=== PATIENT | female | born 1935 | race Caucasian/White ===

== ENCOUNTER → 2017-04-21 | Outpatient (REF) | payer MEDICARE ==
[~2017-04-21] MED LIST: /CIPR75TA OR; ALDA25TA2 PO; ASPI325T PO; ASPI81TA85 PO; ASPI81TA90 PO; ATIV1TAB10 PO; BISOPROLOL FUMARATE PO; COZA25TA8 PO; ECOT81TA5 PO; ELIQ5TAB PO; IMDU30TA PO; ISOS30TA4 PO; LASI20TA PO; LIPI80TA PO; NITR4TASL SL; PACE200T PO; PLAV1TAB2 PO; PLAV75TA2 PO; PROT1TAB2 PO; RANI150C PO; SIMV40TA2 PO; TYLE325T5 PO; TYLE650T25 PO; VITA200038 PO; VITAMIN D PO; ZANTTAB PO; ZEST1TAB4 PO; tylenol OR
== END ==
LOC: M SMT 17:05
PROVIDERS: ATTEND Urology
DX: D41.4 Neoplasm of uncertain behavior of bladder (principal)

== ENCOUNTER → 2017-07-08 | Outpatient (CLI) | payer MEDICARE ==
[2017-07-08 12:46] LABS: ALBUMIN 3.7 GM/DL (3.2-5.2); ALBUMIN/GLOBULIN RATIO 1.06 (1.00-1.93); ALKALINE PHOSPHATASE 70 U/L (45-117); ALT/SGPT 17 U/L (12-78); ANION GAP 9 MEQ/L (8-16); AST/SGOT 22 U/L (15-37); BILIRUBIN,TOTAL 0.7 MG/DL (0.2-1.0); BLOOD UREA NITROGEN 15 MG/DL (7-18); CARBON DIOXIDE LEVEL 25 MEQ/L (21-32); CHLORIDE LEVEL 107 MEQ/L (98-107); CREATININE FOR GFR 0.69 MG/DL (0.55-1.02); GLOMERULAR FILTRATION RATE > 60.0 (>32); GLUCOSE, FASTING 74 MG/DL (83-110); POTASSIUM SERUM 4.6 MEQ/L (3.5-5.1); SODIUM LEVEL 141 MEQ/L (136-145); TOTAL PROTEIN 7.2 GM/DL (6.4-8.2)
[2017-07-08 12:48] LABS: MEAN CORPUSCULAR HEMOGLOBIN 30.9 pg (27.0-33.0); MEAN CORPUSCULAR HGB CONC 32.3 g/dl (32.0-36.5); MEAN CORPUSCULAR VOLUME 95.8 fl (80.0-96.0); RED CELL DISTRIBUTION WIDTH 12.9 % (11.5-14.5); WHITE BLOOD COUNT 4.9 K/mm3 (4.0-10.0)
== END ==
LOC: M WUC 09:25
PROVIDERS: ATTEND Physician Assistant
DX: I25.10 Atherosclerotic heart disease of native coronary artery without angina pectoris (principal)

== ENCOUNTER → 2017-07-08 | Outpatient (CLI) | payer MEDICARE ==
[2017-07-08 12:33] LABS: MEAN CORPUSCULAR HEMOGLOBIN 30.7 pg (27.0-33.0); MEAN CORPUSCULAR HGB CONC 32.1 g/dl (32.0-36.5); MEAN CORPUSCULAR VOLUME 95.5 fl (80.0-96.0); RED CELL DISTRIBUTION WIDTH 12.9 % (11.5-14.5); WHITE BLOOD COUNT 4.8 K/mm3 (4.0-10.0)
[2017-07-08 13:01] LABS: ANION GAP 10 MEQ/L (8-16); BLOOD UREA NITROGEN 17 MG/DL (7-18); CALCIUM LEVEL 9.1 MG/DL (8.8-10.2); CARBON DIOXIDE LEVEL 27 MEQ/L (21-32); CHLORIDE LEVEL 106 MEQ/L (98-107); CHOLESTEROL LEVEL 247 MG/DL (<200); CREATININE FOR GFR 0.65 MG/DL (0.55-1.02); GLOMERULAR FILTRATION RATE > 60.0 (>32); GLUCOSE, FASTING 75 MG/DL (83-110); POTASSIUM SERUM 4.5 MEQ/L (3.5-5.1); SODIUM LEVEL 143 MEQ/L (136-145); TRIGLYCERIDES LEVEL 105 MG/DL (<150)
== END ==
LOC: M WUC 09:29
PROVIDERS: ATTEND Internal Medicine Cardiovascular Disease
DX: I25.10 Atherosclerotic heart disease of native coronary artery without angina pectoris (principal)

== ENCOUNTER → 2017-10-30 | Outpatient (REF) | payer MEDICARE ==
[2017-10-30 19:10] LABS: HEMATOCRIT 45.6 % (36.0-47.0); HEMOGLOBIN 14.3 g/dl (12.0-16.0); MEAN CORPUSCULAR HEMOGLOBIN 29.1 pg (27.0-33.0); MEAN CORPUSCULAR HGB CONC 31.4 g/dl (32.0-36.5); MEAN CORPUSCULAR VOLUME 92.7 fl (80.0-96.0); PLATELET COUNT, AUTOMATED 229 10^3/uL (150-450); RED BLOOD COUNT 4.92 10^6/uL (4.00-5.40); RED CELL DISTRIBUTION WIDTH 13.9 % (11.5-14.5); WHITE BLOOD COUNT 6.3 10^3/uL (4.0-10.0)
[2017-10-30 20:15] LABS: ALBUMIN 3.7 GM/DL (3.2-5.2); ALBUMIN/GLOBULIN RATIO 1.03 (1.00-1.93); ALKALINE PHOSPHATASE 75 U/L (45-117); ALT/SGPT 17 U/L (12-78); ANION GAP 8 MEQ/L (8-16); AST/SGOT 21 U/L (7-37); BILIRUBIN,TOTAL 0.5 MG/DL (0.2-1.0); BLOOD UREA NITROGEN 16 MG/DL (7-18); CALCIUM LEVEL 9.6 MG/DL (8.8-10.2); CARBON DIOXIDE LEVEL 29 MEQ/L (21-32); CHLORIDE LEVEL 106 MEQ/L (98-107); CHOLESTEROL LEVEL 252 MG/DL (<200); CREATININE FOR GFR 0.76 MG/DL (0.55-1.02); FREE T4 0.94 NG/DL (0.76-1.46); GLOMERULAR FILTRATION RATE > 60.0 (>32); GLUCOSE, FASTING 120 MG/DL (83-110); HDL CHOLESTEROL 78 MG/DL (>40); LDL CHOLESTEROL 139.8 MG/DL (<100); NON-HDL-C 174 MG/DL; POTASSIUM SERUM 4.1 MEQ/L (3.5-5.1); SODIUM LEVEL 143 MEQ/L (136-145); THYROID STIMULATING HORMONE 0.958 uIU/ML (0.358-3.740); TOTAL PROTEIN 7.3 GM/DL (6.4-8.2); TRIGLYCERIDES LEVEL 171 MG/DL (<150)
== END ==
LOC: M SFHCADAM 14:34
DX: F43.23 Adjustment disorder with mixed anxiety and depressed mood (principal); I63.50 Cerebral infarction due to unspecified occlusion or stenosis of unspecified cerebral artery; I10 Essential (primary) hypertension; E78.2 Mixed hyperlipidemia
CPT/HCPCS: 84443

== ENCOUNTER 2017-11-04 09:56 | Inpatient (IN) | payer MEDICARE ==
[2017-11-04 12:22] LABS: BASO % 0.3 % (0.0-1.0); EOS # 0.1 10^3/uL (0.0-0.50); EOS % 1.2 % (0.0-3.0); HEMATOCRIT 44.7 % (36.0-47.0); HEMOGLOBIN 14.5 g/dl (12.0-16.0); IMMATURE GRANULOCYTE % 0.5 % (0-0); LYMPH # 1.1 10^3/uL (1.5-4.5); LYMPH % 16.7 % (24.0-44.0); MEAN CORPUSCULAR HEMOGLOBIN 29.4 pg (27.0-33.0); MEAN CORPUSCULAR HGB CONC 32.4 g/dl (32.0-36.5); MEAN CORPUSCULAR VOLUME 90.7 fl (80.0-96.0); MONO # 0.6 10^3/uL (0.0-0.8); MONO % 9.5 % (0.0-5.0); NEUTROPHILS # 4.7 10^3/uL (1.8-7.7); NEUTROPHILS % 71.8 % (36.0-66.0); PLATELET COUNT, AUTOMATED 220 10^3/uL (150-450); RED BLOOD COUNT 4.93 10^6/uL (4.00-5.40); RED CELL DISTRIBUTION WIDTH 13.7 % (11.5-14.5); WHITE BLOOD COUNT 6.5 10^3/uL (4.0-10.0)
[2017-11-04 13:49] LABS: ANION GAP 5 MEQ/L (8-16); BLOOD UREA NITROGEN 14 MG/DL (7-18); CARBON DIOXIDE LEVEL 29 MEQ/L (21-32); CHLORIDE LEVEL 106 MEQ/L (98-107); CPK CREATINE PHOSPHOKINASE 53 U/L (26-192); FREE T4 0.97 NG/DL (0.76-1.46); GLOMERULAR FILTRATION RATE > 60.0 (>32); GLUCOSE, FASTING 90 MG/DL (83-110); INR 0.92; PHOSPHORUS LEVEL 3.1 MG/DL (2.5-4.9); POTASSIUM SERUM 4.2 MEQ/L (3.5-5.1); PROTHROMBIN TIME 12.4 SECONDS (12.4-14.5); SODIUM LEVEL 140 MEQ/L (136-145); TROPONIN I 0.22 NG/ML (< 0.10)
[2017-11-04 13:50] LABS: PARTIAL THROMBOPLASTIN TIME 29.6 SECONDS (26.8-37.9)
[2017-11-04 13:54] LABS: MB/CK RELATIVE INDEX 3.77 (< OR =4); NT-PRO BNP 1446 PG/ML (<450); THYROID STIMULATING HORMONE 0.683 uIU/ML (0.358-3.740)
[2017-11-04 16:07] LABS: CPK CREATINE PHOSPHOKINASE 55 U/L (26-192); MB/CK RELATIVE INDEX 3.63 (< OR =4); TROPONIN I 0.27 NG/ML (< 0.10)
[2017-11-04] MEDS ORDERED: ISOVUE-370 76% 100ML VIAL (Q9967) As Ordered (16:55)
[2017-11-04] MEDS ORDERED: ONDANSETRON 4MG/2ML VIAL (J2405) IV (17:00)
[2017-11-04] MEDS ORDERED: ACETAMINOPHEN TAB 650MG DOSE (2X325MG) PO (17:00)
[2017-11-04] MEDS: amLODIPine 5 MG TAB PO (18:15)
[2017-11-04] MEDS ORDERED: hydrALAZINE INJ 20 MG/ML VIAL IV (19:00)
[2017-11-04] MEDS ORDERED: SLF 3 ML SYR IV (20:30)
[2017-11-04] MEDS: traZODone 50 MG TAB PO (21:37)
[2017-11-04] MEDS: APIXABAN 5 MG TAB (ELIQUIS) PO (21:37)
[2017-11-04 21:39] LABS: CPK CREATINE PHOSPHOKINASE 50 U/L (26-192); TROPONIN I 0.22 NG/ML (< 0.10)
[2017-11-04] MEDS: SLF 3 ML SYR IV (21:39)
[2017-11-04 21:40] LABS: CK-MB VALUE MASS 2.1 NG/ML (0.0-3.6)
[2017-11-05 05:48] LABS: HEMATOCRIT 43.7 % (36.0-47.0); HEMOGLOBIN 14.3 g/dl (12.0-16.0); MEAN CORPUSCULAR HEMOGLOBIN 29.7 pg (27.0-33.0); MEAN CORPUSCULAR HGB CONC 32.7 g/dl (32.0-36.5); MEAN CORPUSCULAR VOLUME 90.7 fl (80.0-96.0); PLATELET COUNT, AUTOMATED 197 10^3/uL (150-450); RED BLOOD COUNT 4.82 10^6/uL (4.00-5.40); RED CELL DISTRIBUTION WIDTH 13.6 % (11.5-14.5); WHITE BLOOD COUNT 5.5 10^3/uL (4.0-10.0)
[2017-11-05] MEDS: SLF 3 ML SYR IV ×3 (06:07→21:51)
[2017-11-05 06:14] LABS: ANION GAP 6 MEQ/L (8-16); BLOOD UREA NITROGEN 19 MG/DL (7-18); CALCIUM LEVEL 9.1 MG/DL (8.8-10.2); CARBON DIOXIDE LEVEL 28 MEQ/L (21-32); CHLORIDE LEVEL 107 MEQ/L (98-107); CPK CREATINE PHOSPHOKINASE 37 U/L (26-192); CREATININE FOR GFR 0.65 MG/DL (0.55-1.02); GLOMERULAR FILTRATION RATE > 60.0 (>32); GLUCOSE, FASTING 94 MG/DL (83-110); MAGNESIUM LEVEL 2.2 MG/DL (1.8-2.4); POTASSIUM SERUM 3.8 MEQ/L (3.5-5.1); SODIUM LEVEL 141 MEQ/L (136-145); TROPONIN I 0.18 NG/ML (< 0.10)
[2017-11-05 06:15] LABS: CK-MB VALUE MASS 1.6 NG/ML (0.0-3.6); MB/CK RELATIVE INDEX 4.32 (< OR =4)
[2017-11-05] MEDS: APIXABAN 5 MG TAB (ELIQUIS) PO (09:00)
[2017-11-05] MEDS: amLODIPine 5 MG TAB PO (09:00)
[2017-11-05] MEDS: PARoxetine 20 MG TAB PO (10:45)
[2017-11-05] MEDS: CYANOCOBALAMIN 500 MCG TAB PO (10:46)
[2017-11-05] MEDS: PANTOPRAZOLE 40MG TAB (PROTONIX) PO (10:46)
[2017-11-05] MEDS: VITAMIN D 1,000 INTERNATIONAL UNITS TABLET PO (10:46)
[2017-11-05] MEDS: ISOSORBIDE MON. (IMDUR) 30 MG XR TAB PO (10:49)
[2017-11-05 13:40] LABS: CK-MB VALUE MASS 1.4 NG/ML (0.0-3.6); CPK CREATINE PHOSPHOKINASE 43 U/L (26-192); MB/CK RELATIVE INDEX 3.25 (< OR =4); TROPONIN I 0.09 NG/ML (< 0.10)
[2017-11-05] MEDS: ENOXAPARIN 60 MG/0.6 ML SYR (J1650) SC ×2 (14:35→22:01)
[2017-11-05] MEDS: traZODone 50 MG TAB PO (21:50)
[2017-11-06 06:20] LABS: HEMOGLOBIN 13.4 g/dl (12.0-16.0); MEAN CORPUSCULAR HEMOGLOBIN 29.5 pg (27.0-33.0); MEAN CORPUSCULAR HGB CONC 32.7 g/dl (32.0-36.5); MEAN CORPUSCULAR VOLUME 90.3 fl (80.0-96.0); PLATELET COUNT, AUTOMATED 190 10^3/uL (150-450); RED BLOOD COUNT 4.54 10^6/uL (4.00-5.40); RED CELL DISTRIBUTION WIDTH 13.7 % (11.5-14.5); WHITE BLOOD COUNT 5.6 10^3/uL (4.0-10.0)
[2017-11-06 06:41] LABS: ANION GAP 7 MEQ/L (8-16); BLOOD UREA NITROGEN 20 MG/DL (7-18); CARBON DIOXIDE LEVEL 26 MEQ/L (21-32); CHLORIDE LEVEL 108 MEQ/L (98-107); CREATININE FOR GFR 0.66 MG/DL (0.55-1.02); GLOMERULAR FILTRATION RATE > 60.0 (>32); GLUCOSE, FASTING 94 MG/DL (83-110); MAGNESIUM LEVEL 2.1 MG/DL (1.8-2.4); POTASSIUM SERUM 3.7 MEQ/L (3.5-5.1); SODIUM LEVEL 141 MEQ/L (136-145)
[2017-11-06] MEDS: SLF 3 ML SYR IV (06:45)
[2017-11-06] MEDS: PARoxetine 20 MG TAB PO (08:17)
[2017-11-06] MEDS: PANTOPRAZOLE 40MG TAB (PROTONIX) PO (08:17)
[2017-11-06] MEDS: CYANOCOBALAMIN 500 MCG TAB PO (08:17)
[2017-11-06] MEDS: VITAMIN D 1,000 INTERNATIONAL UNITS TABLET PO (08:18)
[2017-11-06] MEDS: ISOSORBIDE MON. (IMDUR) 30 MG XR TAB PO (08:20)
== END 2017-11-06 13:22 | disposition home or self-care (01) | DRG 309 ==
LOC: M ED 09:56 → M ED INP 16:48 → M PCU 19:54
DX: I48.0 Paroxysmal atrial fibrillation (principal); I51.81 Takotsubo syndrome; I24.9 Acute ischemic heart disease, unspecified; I25.10 Atherosclerotic heart disease of native coronary artery without angina pectoris; I10 Essential (primary) hypertension; K21.9 Gastro-esophageal reflux disease without esophagitis; R00.2 Palpitations; F41.9 Anxiety disorder, unspecified; M19.90 Unspecified osteoarthritis, unspecified site; R07.9 Chest pain, unspecified; I34.0 Nonrheumatic mitral (valve) insufficiency; G47.00 Insomnia, unspecified; Z79.82 Long term (current) use of aspirin; Z86.73 Personal history of transient ischemic attack (TIA), and cerebral infarction without residual deficits; Z79.899 Other long term (current) drug therapy; Z88.8 Allergy status to other drugs, medicaments and biological substances; Z95.5 Presence of coronary angioplasty implant and graft

== ENCOUNTER 2017-11-13 20:18 | Emergency (ER) | payer MEDICARE ==
[2017-11-13 21:22] LABS: BASO % 0.5 % (0.0-1.0); EOS # 0.1 10^3/uL (0.0-0.50); EOS % 1.9 % (0.0-3.0); HEMATOCRIT 44.2 % (36.0-47.0); HEMOGLOBIN 14.5 g/dl (12.0-16.0); IMMATURE GRANULOCYTE % 0.5 % (0-0); LYMPH % 27.2 % (24.0-44.0); MEAN CORPUSCULAR HGB CONC 32.8 g/dl (32.0-36.5); MEAN CORPUSCULAR VOLUME 91.5 fl (80.0-96.0); MONO # 0.8 10^3/uL (0.0-0.8); MONO % 10.2 % (0.0-5.0); NEUTROPHILS # 4.4 10^3/uL (1.8-7.7); NEUTROPHILS % 59.7 % (36.0-66.0); PLATELET COUNT, AUTOMATED 235 10^3/uL (150-450); RED BLOOD COUNT 4.83 10^6/uL (4.00-5.40); RED CELL DISTRIBUTION WIDTH 13.5 % (11.5-14.5); WHITE BLOOD COUNT 7.5 10^3/uL (4.0-10.0)
[2017-11-13 21:35] LABS: PROTHROMBIN TIME 12.2 SECONDS (12.4-14.5)
[2017-11-13 21:36] LABS: PARTIAL THROMBOPLASTIN TIME 30.5 SECONDS (26.8-37.9)
[2017-11-13 21:43] LABS: ANION GAP 7 MEQ/L (8-16); BLOOD UREA NITROGEN 17 MG/DL (7-18); CARBON DIOXIDE LEVEL 28 MEQ/L (21-32); CHLORIDE LEVEL 106 MEQ/L (98-107); CREATININE FOR GFR 1.37 MG/DL (0.55-1.02); GLOMERULAR FILTRATION RATE 39.1 (>32); GLUCOSE, FASTING 100 MG/DL (83-110); NT-PRO BNP 762 PG/ML (<450); POTASSIUM SERUM 3.9 MEQ/L (3.5-5.1); SODIUM LEVEL 141 MEQ/L (136-145)
[2017-11-14 01:26] LABS: CPK CREATINE PHOSPHOKINASE 62 U/L (26-192); TROPONIN I 0.04 NG/ML (< 0.10)
[2017-11-14 01:27] LABS: CK-MB VALUE MASS 2.3 NG/ML (0.0-3.6)
== END 2017-11-14 02:01 | disposition home or self-care (01) ==
LOC: M ED 20:18
DX: R00.2 Palpitations (principal); R06.02 Shortness of breath; I10 Essential (primary) hypertension; I25.2 Old myocardial infarction; K21.9 Gastro-esophageal reflux disease without esophagitis; Z79.01 Long term (current) use of anticoagulants; Z79.899 Other long term (current) drug therapy; Z88.1 Allergy status to other antibiotic agents; Z87.442 Personal history of urinary calculi; Z87.19 Personal history of other diseases of the digestive system; Z95.5 Presence of coronary angioplasty implant and graft
CPT/HCPCS: 71045

== ENCOUNTER → 2017-12-18 | Outpatient (CLI) | payer MEDICARE ==
[2017-12-18 18:44] LABS: ANION GAP 9 MEQ/L (8-16); BLOOD UREA NITROGEN 19 MG/DL (7-18); CALCIUM LEVEL 9.7 MG/DL (8.8-10.2); CARBON DIOXIDE LEVEL 26 MEQ/L (21-32); CHLORIDE LEVEL 107 MEQ/L (98-107); GLOMERULAR FILTRATION RATE > 60.0 (>32); GLUCOSE, FASTING 101 MG/DL (70-100); POTASSIUM SERUM 4.4 MEQ/L (3.5-5.1); SODIUM LEVEL 142 MEQ/L (136-145)
== END ==
LOC: M SMT 14:51
DX: R31.0 Gross hematuria (principal)
CPT/HCPCS: 80048

== ENCOUNTER → 2017-12-18 | Outpatient (REF) | payer MEDICARE ==
[2017-12-18 18:47] LABS: APPEARANCE, URINE HAZY (CLEAR); BACTERIA, URINE AUTO NEGATIVE (NEGATIVE); BILIRUBIN, URINE AUTO NEGATIVE (NEGATIVE); BLOOD, URINE BLOOD NEGATIVE (NEGATIVE); CALCIUM OXALATE CRYSTALS MODERATE; COLOR, URINE YELLOW (YELLOW); GLUCOSE, URINE (UA) AUTO NEGATIVE (NEGATIVE); KETONE, URINE AUTO NEGATIVE (NEGATIVE); LEUKOCYTE ESTERASE, URINE AUTO 1+ (NEGATIVE); MUCUS, URINE SMALL (NEGATIVE); NITRITE, URINE AUTO NEGATIVE (NEGATIVE); PROTEIN, URINE AUTO NEGATIVE (NEGATIVE); RBC, URINE AUTO 4 /HPF (0-3); SPECIFIC GRAVITY URINE AUTO 1.017 (1.002-1.035); SQUAMOUS EPITHELIAL CELL UR AU 1 /HPF (0-6); UROBILINOGEN, URINE AUTO 0.2 mg/dL (0.0-2.0); WBC, URINE AUTO 13 /HPF (0-3)
== END ==
LOC: M SMT 17:12
DX: R31.0 Gross hematuria (principal); R82.8 Abnormal findings on cytological and histological examination of urine
CPT/HCPCS: 80048; 81001

== ENCOUNTER → 2018-02-25 | Outpatient (REF) | payer MEDICARE ==
[2018-02-25 12:54] LABS: BASO % 0.5 % (0.0-1.0); EOS % 0.5 % (0.0-3.0); HEMATOCRIT 40.1 % (36.0-47.0); HEMOGLOBIN 13.1 g/dl (12.0-15.5); IMMATURE GRANULOCYTE % 0.6 % (0-3.0); LYMPH # 1.2 10^3/uL (1.5-4.5); MEAN CORPUSCULAR HEMOGLOBIN 30.7 pg (27.0-33.0); MEAN CORPUSCULAR HGB CONC 32.7 g/dl (32.0-36.5); MEAN CORPUSCULAR VOLUME 93.9 fl (80.0-96.0); MONO # 0.7 10^3/uL (0.0-0.8); MONO % 8.5 % (0.0-5.0); NEUTROPHILS # 5.9 10^3/uL (1.8-7.7); NEUTROPHILS % 74.9 % (36.0-66.0); PLATELET COUNT, AUTOMATED 235 10^3/uL (150-450); RED BLOOD COUNT 4.27 10^6/uL (4.00-5.40); RED CELL DISTRIBUTION WIDTH 13.9 % (11.5-14.5); WHITE BLOOD COUNT 7.9 10^3/uL (4.0-10.0)
[2018-02-25 13:48] LABS: ALBUMIN 3.5 GM/DL (3.2-5.2); ALBUMIN/GLOBULIN RATIO 1.09 (1.00-1.93); ALKALINE PHOSPHATASE 72 U/L (45-117); ALT/SGPT 22 U/L (12-78); AMYLASE 51 U/L (25-115); ANION GAP 7 MEQ/L (8-16); AST/SGOT 22 U/L (7-37); BILIRUBIN,TOTAL 0.5 MG/DL (0.2-1.0); BLOOD UREA NITROGEN 12 MG/DL (7-18); CALCIUM LEVEL 9.1 MG/DL (8.8-10.2); CARBON DIOXIDE LEVEL 28 MEQ/L (21-32); CHLORIDE LEVEL 108 MEQ/L (98-107); CREATININE FOR GFR 0.75 MG/DL (0.55-1.30); GLOMERULAR FILTRATION RATE > 60.0 (>32); GLUCOSE, FASTING 97 MG/DL (70-100); POTASSIUM SERUM 4.2 MEQ/L (3.5-5.1); SODIUM LEVEL 143 MEQ/L (136-145); TOTAL PROTEIN 6.7 GM/DL (6.4-8.2)
== END ==
LOC: M SFHCADAM 10:07
DX: R10.13 Epigastric pain (principal)
CPT/HCPCS: 82150

== ENCOUNTER 2018-02-26 07:13 | Emergency (ER) | payer MEDICARE ==
[2018-02-26] MEDS: ASPIRIN 81 MG CHEW TABLET PO (08:15)
[2018-02-26 08:50] LABS: BASO % 0.3 % (0.0-1.0); EOS # 0.1 10^3/uL (0.0-0.50); EOS % 0.8 % (0.0-3.0); HEMATOCRIT 42.1 % (36.0-47.0); HEMOGLOBIN 13.7 g/dl (12.0-15.5); IMMATURE GRANULOCYTE % 0.5 % (0-3.0); LYMPH % 15.5 % (24.0-44.0); MEAN CORPUSCULAR HEMOGLOBIN 30.4 pg (27.0-33.0); MEAN CORPUSCULAR HGB CONC 32.5 g/dl (32.0-36.5); MEAN CORPUSCULAR VOLUME 93.3 fl (80.0-96.0); MONO # 0.6 10^3/uL (0.0-0.8); MONO % 9.2 % (0.0-5.0); NEUTROPHILS # 4.9 10^3/uL (1.8-7.7); NEUTROPHILS % 73.7 % (36.0-66.0); PLATELET COUNT, AUTOMATED 222 10^3/uL (150-450); RED BLOOD COUNT 4.51 10^6/uL (4.00-5.40); WHITE BLOOD COUNT 6.6 10^3/uL (4.0-10.0)
[2018-02-26] MEDS ORDERED: ISOVUE-370 76% 100ML VIAL (Q9967) As Ordered (08:58)
[2018-02-26 10:25] LABS: LACTIC ACID SEPSIS PROTOCOL 1.2 MMOL/L (0.4-2.0)
[2018-02-26 10:43] LABS: INR 0.93; PROTHROMBIN TIME 12.5 SECONDS (12.4-14.5)
[2018-02-26 11:05] LABS: ALBUMIN 3.7 GM/DL (3.2-5.2); ALBUMIN/GLOBULIN RATIO 1.06 (1.00-1.93); ALKALINE PHOSPHATASE 76 U/L (45-117); ALT/SGPT 20 U/L (12-78); ANION GAP 5 MEQ/L (8-16); AST/SGOT 22 U/L (7-37); BILIRUBIN,DIRECT 0.1 MG/DL (0.0-0.2); BILIRUBIN,TOTAL 0.6 MG/DL (0.2-1.0); BLOOD UREA NITROGEN 10 MG/DL (7-18); CALCIUM LEVEL 8.8 MG/DL (8.8-10.2); CARBON DIOXIDE LEVEL 30 MEQ/L (21-32); CHLORIDE LEVEL 106 MEQ/L (98-107); CPK CREATINE PHOSPHOKINASE 55 U/L (26-192); CREATININE FOR GFR 0.64 MG/DL (0.55-1.30); GLOMERULAR FILTRATION RATE > 60.0 (>32); GLUCOSE, FASTING 93 MG/DL (70-100); LIPASE 124 U/L (73-393); POTASSIUM SERUM 3.8 MEQ/L (3.5-5.1); SODIUM LEVEL 141 MEQ/L (136-145); TOTAL PROTEIN 7.2 GM/DL (6.4-8.2); TROPONIN I 0.06 NG/ML (< 0.10)
[2018-02-26 11:06] LABS: CK-MB VALUE MASS 2.2 NG/ML (<3.6); NT-PRO BNP 4128 PG/ML (<450)
[2018-02-26 12:53] LABS: APPEARANCE, URINE CLEAR (CLEAR); BACTERIA, URINE AUTO NEGATIVE (NEGATIVE); BILIRUBIN, URINE AUTO NEGATIVE (NEGATIVE); BLOOD, URINE BLOOD NEGATIVE (NEGATIVE); COLOR, URINE STRAW (YELLOW); GLUCOSE, URINE (UA) AUTO NEGATIVE (NEGATIVE); KETONE, URINE AUTO NEGATIVE (NEGATIVE); LEUKOCYTE ESTERASE, URINE AUTO NEGATIVE (NEGATIVE); NITRITE, URINE AUTO NEGATIVE (NEGATIVE); PROTEIN, URINE AUTO NEGATIVE (NEGATIVE); RBC, URINE AUTO 2 /HPF (0-3); SPECIFIC GRAVITY URINE AUTO 1.009 (1.002-1.035); SQUAMOUS EPITHELIAL CELL UR AU 1 /HPF (0-6); UROBILINOGEN, URINE AUTO 0.2 mg/dL (0.0-2.0); WBC, URINE AUTO 1 /HPF (0-3)
== END 2018-02-26 13:36 | disposition home or self-care (01) ==
LOC: M ED 07:13
DX: R07.9 Chest pain, unspecified (principal); R10.9 Unspecified abdominal pain; I25.2 Old myocardial infarction; F41.9 Anxiety disorder, unspecified; F32.9 Major depressive disorder, single episode, unspecified; M19.90 Unspecified osteoarthritis, unspecified site; K21.9 Gastro-esophageal reflux disease without esophagitis; K57.30 Diverticulosis of large intestine without perforation or abscess without bleeding; Z87.442 Personal history of urinary calculi; Z86.73 Personal history of transient ischemic attack (TIA), and cerebral infarction without residual deficits; I27.20 Pulmonary hypertension, unspecified; N28.1 Cyst of kidney, acquired; K44.9 Diaphragmatic hernia without obstruction or gangrene; I51.7 Cardiomegaly; Z79.82 Long term (current) use of aspirin; Z79.899 Other long term (current) drug therapy; Z88.8 Allergy status to other drugs, medicaments and biological substances
CPT/HCPCS: Q9967

== ENCOUNTER → 2018-06-24 | Outpatient (REF) | payer MEDICARE ==
[2018-06-24 19:33] LABS: HEMATOCRIT 41.9 % (36.0-47.0); HEMOGLOBIN 13.5 g/dl (12.0-15.5); MEAN CORPUSCULAR HEMOGLOBIN 29.2 pg (27.0-33.0); MEAN CORPUSCULAR HGB CONC 32.2 g/dl (32.0-36.5); MEAN CORPUSCULAR VOLUME 90.7 fl (80.0-96.0); PLATELET COUNT, AUTOMATED 200 10^3/uL (150-450); RED BLOOD COUNT 4.62 10^6/uL (4.00-5.40); RED CELL DISTRIBUTION WIDTH 13.7 % (11.5-14.5); WHITE BLOOD COUNT 6.8 10^3/uL (4.0-10.0)
[2018-06-24 21:01] LABS: ALBUMIN 3.5 GM/DL (3.2-5.2); ALBUMIN/GLOBULIN RATIO 1.06 (1.00-1.93); ALKALINE PHOSPHATASE 69 U/L (45-117); ALT/SGPT 32 U/L (12-78); ANION GAP 11 MEQ/L (8-16); AST/SGOT 25 U/L (7-37); BILIRUBIN,TOTAL 0.4 MG/DL (0.2-1.0); BLOOD UREA NITROGEN 17 MG/DL (7-18); CALCIUM LEVEL 8.9 MG/DL (8.8-10.2); CARBON DIOXIDE LEVEL 23 MEQ/L (21-32); CHLORIDE LEVEL 109 MEQ/L (98-107); CREATININE FOR GFR 0.72 MG/DL (0.55-1.30); GLOMERULAR FILTRATION RATE > 60.0 (>32); GLUCOSE, FASTING 94 MG/DL (70-100); POTASSIUM SERUM 4.4 MEQ/L (3.5-5.1); SODIUM LEVEL 143 MEQ/L (136-145); TOTAL PROTEIN 6.8 GM/DL (6.4-8.2)
== END ==
LOC: M SFHCADAM 17:30
DX: I48.0 Paroxysmal atrial fibrillation (principal); E53.8 Deficiency of other specified B group vitamins; R00.2 Palpitations; R53.83 Other fatigue
CPT/HCPCS: 83735

== ENCOUNTER 2018-06-29 06:32 | Emergency (ER) | payer MEDICARE ==
[2018-06-29] MEDS: ADENOSINE 6MG/2ML INJECTION (J0153) IV (06:35)
[2018-06-29] MEDS ORDERED: ADENOSINE 6MG/2ML INJECTION (J0153) As Ordered (06:40)
[2018-06-29 07:09] LABS: BASO % 0.3 % (0.0-1.0); EOS # 0.1 10^3/uL (0.0-0.50); HEMATOCRIT 43.4 % (36.0-47.0); HEMOGLOBIN 13.9 g/dl (12.0-15.5); IMMATURE GRANULOCYTE % 0.5 % (0-3.0); LYMPH # 2.1 10^3/uL (1.5-4.5); LYMPH % 31.4 % (24.0-44.0); MEAN CORPUSCULAR HEMOGLOBIN 29.2 pg (27.0-33.0); MEAN CORPUSCULAR VOLUME 91.2 fl (80.0-96.0); MONO # 0.7 10^3/uL (0.0-0.8); NEUTROPHILS # 3.7 10^3/uL (1.8-7.7); NEUTROPHILS % 55.8 % (36.0-66.0); PLATELET COUNT, AUTOMATED 204 10^3/uL (150-450); RED BLOOD COUNT 4.76 10^6/uL (4.00-5.40); RED CELL DISTRIBUTION WIDTH 13.8 % (11.5-14.5); WHITE BLOOD COUNT 6.6 10^3/uL (4.0-10.0)
[2018-06-29 07:32] LABS: ANION GAP 9 MEQ/L (8-16); BLOOD UREA NITROGEN 17 MG/DL (7-18); CARBON DIOXIDE LEVEL 25 MEQ/L (21-32); CHLORIDE LEVEL 111 MEQ/L (98-107); CPK CREATINE PHOSPHOKINASE 38 U/L (26-192); CREATININE FOR GFR 0.86 MG/DL (0.55-1.30); FREE THYROXINE INDEX 3.5 % (1.3-4.8); GLOMERULAR FILTRATION RATE > 60.0 (>32); GLUCOSE, FASTING 115 MG/DL (70-100); POTASSIUM SERUM 3.9 MEQ/L (3.5-5.1); SODIUM LEVEL 145 MEQ/L (136-145); T UPTAKE 36 % (30-39); THYROXINE (T4) 9.7 UG/DL (4.5-12.0); TROPONIN I 0.06 NG/ML (< 0.10)
[2018-06-29 07:37] LABS: CK-MB VALUE MASS 1.3 NG/ML (<3.6); MB/CK RELATIVE INDEX 3.42 (< OR =4)
[2018-06-29 09:01] LABS: INR 0.92; PROTHROMBIN TIME 12.5 SECONDS (12.1-14.4)
== END 2018-06-29 09:01 | disposition home or self-care (01) ==
LOC: M ED 06:32
DX: I47.1 Supraventricular tachycardia (principal); I11.9 Hypertensive heart disease without heart failure; I25.10 Atherosclerotic heart disease of native coronary artery without angina pectoris; I48.91 Unspecified atrial fibrillation; K21.9 Gastro-esophageal reflux disease without esophagitis; Z95.5 Presence of coronary angioplasty implant and graft; Z79.899 Other long term (current) drug therapy; Z79.82 Long term (current) use of aspirin
CPT/HCPCS: J0153

== ENCOUNTER 2018-06-30 03:57 | Emergency (ER) | payer MEDICARE ==
[2018-06-30 04:56] LABS: BASO % 0.4 % (0.0-1.0); EOS # 0.1 10^3/uL (0.0-0.50); EOS % 1.9 % (0.0-3.0); HEMOGLOBIN 12.6 g/dl (12.0-15.5); IMMATURE GRANULOCYTE % 0.6 % (0-3.0); LYMPH # 1.2 10^3/uL (1.5-4.5); LYMPH % 21.8 % (24.0-44.0); MEAN CORPUSCULAR HEMOGLOBIN 29.2 pg (27.0-33.0); MEAN CORPUSCULAR HGB CONC 31.5 g/dl (32.0-36.5); MEAN CORPUSCULAR VOLUME 92.8 fl (80.0-96.0); MONO # 0.5 10^3/uL (0.0-0.8); MONO % 9.1 % (0.0-5.0); NEUTROPHILS # 3.5 10^3/uL (1.8-7.7); NEUTROPHILS % 66.2 % (36.0-66.0); PLATELET COUNT, AUTOMATED 159 10^3/uL (150-450); RED BLOOD COUNT 4.31 10^6/uL (4.00-5.40); RED CELL DISTRIBUTION WIDTH 13.8 % (11.5-14.5); WHITE BLOOD COUNT 5.3 10^3/uL (4.0-10.0)
[2018-06-30 05:25] LABS: ANION GAP 11 MEQ/L (8-16); BLOOD UREA NITROGEN 16 MG/DL (7-18); CALCIUM LEVEL 8.6 MG/DL (8.8-10.2); CARBON DIOXIDE LEVEL 22 MEQ/L (21-32); CHLORIDE LEVEL 111 MEQ/L (98-107); CK-MB VALUE MASS 1.8 NG/ML (<3.6); CPK CREATINE PHOSPHOKINASE 40 U/L (26-192); CREATININE FOR GFR 0.82 MG/DL (0.55-1.30); GLOMERULAR FILTRATION RATE > 60.0 (>32); GLUCOSE, FASTING 113 MG/DL (70-100); POTASSIUM SERUM 3.8 MEQ/L (3.5-5.1); SODIUM LEVEL 144 MEQ/L (136-145); TROPONIN I 0.05 NG/ML (< 0.10)
[2018-06-30] MEDS: METOPROLOL SUCC *XL* 25MG TAB (TopROL *XL*) PO (08:24)
== END 2018-06-30 08:30 | disposition home or self-care (01) ==
LOC: M ED 03:57
DX: I47.1 Supraventricular tachycardia (principal); I10 Essential (primary) hypertension; I25.10 Atherosclerotic heart disease of native coronary artery without angina pectoris; K21.9 Gastro-esophageal reflux disease without esophagitis; Z79.82 Long term (current) use of aspirin; Z79.899 Other long term (current) drug therapy; Z88.1 Allergy status to other antibiotic agents

== ENCOUNTER → 2019-01-01 | Outpatient (REF) | payer MEDICARE ==
[~2019-01-01] MED LIST changes: +CARV12.5 PO; +D 101TAB PO; +DIGO0.12 PO; +ELIQ2.5T PO; +FAMO1TAB25 PO; +FLUO10CA8 PO; +FLUO20CA19 PO; -LASI20TA PO; +LASI20TA3 PO; +LISI-542 PO; +METO1TAB32 PO; +PANT40TA3 PO; +PARO20TA3 PO; +TRAZ-160 PO; +TYLE500T78 PO; +VITA10002 PO
[2019-01-01 20:28] LABS: HEMATOCRIT 45.2 % (36.0-47.0); HEMOGLOBIN 14.1 g/dl (12.0-15.5); MEAN CORPUSCULAR HEMOGLOBIN 29.6 pg (27.0-33.0); MEAN CORPUSCULAR HGB CONC 31.2 g/dl (32.0-36.5); MEAN CORPUSCULAR VOLUME 94.8 fl (80.0-96.0); PLATELET COUNT, AUTOMATED 261 10^3/uL (150-450); RED BLOOD COUNT 4.77 10^6/uL (4.00-5.40); WHITE BLOOD COUNT 6.8 10^3/uL (4.0-10.0)
[2019-01-01 20:48] LABS: ALT/SGPT 20 U/L (12-78); BILIRUBIN,TOTAL 0.7 MG/DL (0.2-1.0); BLOOD UREA NITROGEN 16 MG/DL (7-18); CARBON DIOXIDE LEVEL 29 MEQ/L (21-32); CHLORIDE LEVEL 104 MEQ/L (98-107); CREATININE FOR GFR 0.74 MG/DL (0.55-1.30); GLOMERULAR FILTRATION RATE > 60.0 (>32); GLUCOSE, FASTING 84 MG/DL (70-100); POTASSIUM SERUM 4.9 MEQ/L (3.5-5.1); SODIUM LEVEL 139 MEQ/L (136-145)
[2019-01-01 20:49] LABS: ALBUMIN 3.8 GM/DL (3.2-5.2); FREE T4 1.01 NG/DL (0.76-1.46); MAGNESIUM LEVEL 2.2 MG/DL (1.8-2.4); TOTAL PROTEIN 7.5 GM/DL (6.4-8.2)
== END ==
LOC: M SFHCADAM 15:52
PROVIDERS: ATTEND Family Medicine
DX: I25.10 Atherosclerotic heart disease of native coronary artery without angina pectoris (principal); I11.0 Hypertensive heart disease with heart failure; I48.0 Paroxysmal atrial fibrillation
CPT/HCPCS: 80053; 83735; 84439; 84443; 85027; G0463

== ENCOUNTER 2019-05-18 14:37 | Emergency (ER) | payer MEDICARE ==
[~2019-05-18] VITALS: Ht 149.9 cm; Wt 51.8 kg
[~2019-05-18 14:37] MED LIST changes: +CYAN100049 PO; -D 101TAB PO; -TRAZ-160 PO; +TRAZ-252 PO; +VITA-144 PO; -VITA10002 PO; +ZANT150T40 PO; -ZANTTAB PO
[2019-05-18] MEDS ORDERED: NS 500 ML IV ONE (15:15)
--- NOTE | 2019-05-18 15:51 | REP ---
Portable chest, 03:19 p.m., single AP view: Comparison is 07/06/2018. Cardiomegaly and dual chamber pacemaker are unchanged. Lung avila otherwise appear clear. The previous bilateral pleural effusions are no longer identified with certainty, however there is no lateral view of the current study. Sherine, mediastinum, skeletal structures are unremarkable. Impression: Chronic cardiomegaly. Pacemaker. No definite acute cardiopulmonary changes on this single view. Electronically Signed by Narinder Mitchell MD 05/18/2019 03:43 P
[2019-05-18 15:53] LABS: BASO % 0.4 % (0.0-1.0); EOS # 0.1 10^3/uL (0.0-0.50); EOS % 1.1 % (0.0-3.0); HEMATOCRIT 43.1 % (36.0-47.0); HEMOGLOBIN 14.3 g/dl (12.0-15.5); LYMPH # 1.5 10^3/uL (1.5-4.5); LYMPH % 19.8 % (24.0-44.0); MEAN CORPUSCULAR HEMOGLOBIN 31.8 pg (27.0-33.0); MEAN CORPUSCULAR HGB CONC 33.2 g/dl (32.0-36.5); MONO # 0.7 10^3/uL (0.0-0.8); MONO % 9.4 % (0.0-5.0); NEUTROPHILS # 5.1 10^3/uL (1.8-7.7); NEUTROPHILS % 68.9 % (36.0-66.0); PLATELET COUNT, AUTOMATED 228 10^3/uL (150-450); RED BLOOD COUNT 4.49 10^6/uL (4.00-5.40); WHITE BLOOD COUNT 7.5 10^3/uL (4.0-10.0)
[2019-05-18 16:19] LABS: BLOOD UREA NITROGEN 19 MG/DL (7-18); CALCIUM LEVEL 9.7 MG/DL (8.8-10.2); CARBON DIOXIDE LEVEL 28 MEQ/L (21-32); CHLORIDE LEVEL 105 MEQ/L (98-107); CK-MB VALUE MASS 1.5 NG/ML (<3.6); CPK CREATINE PHOSPHOKINASE 45 U/L (26-192); CREATININE FOR GFR 0.87 MG/DL (0.55-1.30); ETHYL ALCOHOL (ETHANOL) 0.004 % (0.000-0.010); FREE T4 0.88 NG/DL (0.76-1.46); GLOMERULAR FILTRATION RATE > 60.0 (>32); GLUCOSE, FASTING 132 MG/DL (70-100); MAGNESIUM LEVEL 2.2 MG/DL (1.8-2.4); MB/CK RELATIVE INDEX 3.33 (< OR =4); POTASSIUM SERUM 4.2 MEQ/L (3.5-5.1); SODIUM LEVEL 139 MEQ/L (136-145); TROPONIN I 0.02 NG/ML (< 0.10)
--- NOTE | 2019-05-18 16:29 | REP ---
HISTORY: Syncopal episode. COMPARISON: None. The ventricles and sulci are within normal limits for the patient's age of 83 years. There are no extra-axial fluid collections. There is no shift of the midline structures. Patchy lucency is seen throughout the deep cerebral white matter. There is no evidence of an acute intracranial hemorrhagic or nonhemorrhagic event. There is no abnormality seen in the posterior fossa. There is no skull fracture. The imaged paranasal sinuses and mastoid air cells are clear. IMPRESSION: Age-related cerebral atrophy and deep white matter ischemic changes. There is no evidence of acute disease. Electronically Signed by Cristian Hardy DO 05/19/2019 04:19 P
[2019-05-18 18:01] VITALS: BP 143/84
--- NOTE | 2019-05-19 00:23 | ECGEPIP ---
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
== END 2019-05-18 18:07 | disposition home or self-care (01) ==
LOC: M ED 14:37
DX: R55 Syncope and collapse (principal); I11.9 Hypertensive heart disease without heart failure; I48.91 Unspecified atrial fibrillation; I25.2 Old myocardial infarction; I25.10 Atherosclerotic heart disease of native coronary artery without angina pectoris; I27.20 Pulmonary hypertension, unspecified; K21.9 Gastro-esophageal reflux disease without esophagitis; Z85.59 Personal history of malignant neoplasm of other urinary tract organ; I34.0 Nonrheumatic mitral (valve) insufficiency; Z95.0 Presence of cardiac pacemaker; Z88.1 Allergy status to other antibiotic agents; Z79.899 Other long term (current) drug therapy; Z79.82 Long term (current) use of aspirin
CPT/HCPCS: 70450; 71045; 80048; 81001; 82550; 82553; 83735; 84439; 84443; 84484; 85025; 87086; 93005; 93041; 94760; 96360; 96361; 99285; G0480

== ENCOUNTER → 2019-11-25 | Outpatient (REF) | payer MEDICARE ==
[~2019-11-25] MED LIST changes: -DIGO0.12 PO; +DIGO0.123 PO; +FLUO10CA15 PO; -FLUO10CA8 PO; -FLUO20CA19 PO; +FLUO20CA22 PO
[2019-11-25 19:25] LABS: HEMATOCRIT 46.8 % (36.0-47.0); HEMOGLOBIN 14.5 g/dl (12.0-15.5); MEAN CORPUSCULAR HEMOGLOBIN 30.3 pg (27.0-33.0); MEAN CORPUSCULAR VOLUME 97.9 fl (80.0-96.0); PLATELET COUNT, AUTOMATED 257 10^3/uL (150-450); RED BLOOD COUNT 4.78 10^6/uL (4.00-5.40); WHITE BLOOD COUNT 7.6 10^3/uL (4.0-10.0)
[2019-11-25 19:39] LABS: ALBUMIN 3.9 GM/DL (3.2-5.2); ALT/SGPT 19 U/L (12-78); BILIRUBIN,TOTAL 0.5 MG/DL (0.2-1.0); BLOOD UREA NITROGEN 14 MG/DL (7-18); CALCIUM LEVEL 9.8 MG/DL (8.8-10.2); CARBON DIOXIDE LEVEL 31 MEQ/L (21-32); CHLORIDE LEVEL 103 MEQ/L (98-107); CHOLESTEROL LEVEL 242 MG/DL (<200); CHOLESTEROL RISK RATIO 5.627 (<5); CREATININE FOR GFR 0.81 MG/DL (0.55-1.30); GLOMERULAR FILTRATION RATE > 60.0 (>32); GLUCOSE, FASTING 82 MG/DL (70-100); HDL CHOLESTEROL 43 MG/DL (>40); LDL CHOLESTEROL 141 MG/DL (<100); NON-HDL-C 199 MG/DL; POTASSIUM SERUM 4.5 MEQ/L (3.5-5.1); SODIUM LEVEL 141 MEQ/L (136-145); TOTAL PROTEIN 7.2 GM/DL (6.4-8.2); TRIGLYCERIDES LEVEL 288 MG/DL (<150)
== END ==
LOC: M SFHCADAM 16:18
PROVIDERS: ATTEND Family Medicine
DX: I48.0 Paroxysmal atrial fibrillation (principal); M62.81 Muscle weakness (generalized); E78.2 Mixed hyperlipidemia
CPT/HCPCS: 80053; 80061; 85027; G0463

== ENCOUNTER → 2020-06-05 | Outpatient (REF) | payer MEDICARE ==
[~2020-06-05] MED LIST changes: -ASPI81TA85 PO; +ASPI81TA86 PO; -FLUO10CA15 PO; +FLUO10CA16 PO; +PANT40TA29 PO; -PANT40TA3 PO
[2020-07-05 14:42] LABS: HEMOGLOBIN 14.5 g/dl (12.0-15.5); MEAN CORPUSCULAR HGB CONC 32.2 g/dl (32.0-36.5); MEAN CORPUSCULAR VOLUME 96.4 fl (80.0-96.0); PLATELET COUNT, AUTOMATED 262 10^3/uL (150-450); RED BLOOD COUNT 4.67 10^6/uL (4.00-5.40); WHITE BLOOD COUNT 6.9 10^3/uL (4.0-10.0)
[2020-07-18 13:03] LABS: ALBUMIN 3.7 GM/DL (3.2-5.2); ALT/SGPT 22 U/L (12-78); BILIRUBIN,TOTAL 0.5 MG/DL (0.2-1.0); BLOOD UREA NITROGEN 12 MG/DL (7-18); CALCIUM LEVEL 9.1 MG/DL (8.8-10.2); CARBON DIOXIDE LEVEL 30 MEQ/L (21-32); CHLORIDE LEVEL 103 MEQ/L (98-107); CHOLESTEROL LEVEL 237 MG/DL (<200); CHOLESTEROL RISK RATIO 5.642 (<5); CREATININE FOR GFR 0.85 MG/DL (0.55-1.30); DIGOXIN LEVEL 1.1 NG/ML (0.5-2.0); GLOMERULAR FILTRATION RATE > 60.0 (>32); GLUCOSE, FASTING 89 MG/DL (70-100); HDL CHOLESTEROL 42 MG/DL (>40); LDL CHOLESTEROL 137 MG/DL (<100); NON-HDL-C 195 MG/DL; POTASSIUM SERUM 4.4 MEQ/L (3.5-5.1); SODIUM LEVEL 138 MEQ/L (136-145); TOTAL PROTEIN 7.1 GM/DL (6.4-8.2); TRIGLYCERIDES LEVEL 288 MG/DL (<150)
== END ==
LOC: M SFHCADAM 08:47 → M LABWUC 08:47
PROVIDERS: ATTEND Family Medicine
DX: I48.0 Paroxysmal atrial fibrillation (principal); E78.2 Mixed hyperlipidemia; M62.81 Muscle weakness (generalized)

== ENCOUNTER → 2020-09-29 | Outpatient (REF) | payer MEDICARE, MEDICAID | LOC: M LAB REF 17:25 | PROVIDERS: ATTEND Dermatology | DX: D23.5 Other benign neoplasm of skin of trunk (principal) | CPT/HCPCS: 11102; 17110; 88305; G0463 ==

== ENCOUNTER → 2020-11-14 | Outpatient (CLI) | payer SELFPAY ==
[~2020-11-14] MED LIST changes: +ISOS1TAB35 PO; -LISI-542 PO; +LISI-898 PO
== END ==
LOC: M LABSMTC 10:56
PROVIDERS: ATTEND Pediatrics
DX: Z20.822 Contact with and (suspected) exposure to COVID-19 (principal)

== ENCOUNTER → 2021-01-19 | Outpatient (REF) | payer MEDICARE, MEDICAID ==
[2021-01-19 16:40] LABS: HEMATOCRIT 45.9 % (36.0-47.0); HEMOGLOBIN 14.6 g/dl (12.0-15.5); MEAN CORPUSCULAR HEMOGLOBIN 30.8 pg (27.0-33.0); MEAN CORPUSCULAR HGB CONC 31.8 g/dl (32.0-36.5); MEAN CORPUSCULAR VOLUME 96.8 fl (80.0-96.0); PLATELET COUNT, AUTOMATED 251 10^3/uL (150-450); RED BLOOD COUNT 4.74 10^6/uL (4.00-5.40); WHITE BLOOD COUNT 7.7 10^3/uL (4.0-10.0)
[2021-01-19 16:55] LABS: HEMOGLOBIN A1c 5.2 %
[2021-01-19 17:17] LABS: ALBUMIN 3.9 GM/DL (3.2-5.2); ALT/SGPT 21 U/L (12-78); BILIRUBIN,TOTAL 0.4 MG/DL (0.2-1.0); BLOOD UREA NITROGEN 17 MG/DL (7-18); CALCIUM LEVEL 9.1 MG/DL (8.8-10.2); CARBON DIOXIDE LEVEL 29 MEQ/L (21-32); CHLORIDE LEVEL 107 MEQ/L (98-107); CHOLESTEROL LEVEL 249 MG/DL (<200); CHOLESTEROL RISK RATIO 5.659 (<5); CREATININE FOR GFR 0.69 MG/DL (0.55-1.30); FREE T4 0.95 NG/DL (0.76-1.46); GLOMERULAR FILTRATION RATE > 60.0 (>32); GLUCOSE, FASTING 83 MG/DL (70-100); HDL CHOLESTEROL 44 MG/DL (>40); MAGNESIUM LEVEL 2.2 MG/DL (1.8-2.4); NON-HDL-C 205 MG/DL; POTASSIUM SERUM 4.3 MEQ/L (3.5-5.1); SODIUM LEVEL 141 MEQ/L (136-145); THYROID STIMULATING HORMONE 0.931 uIU/ML (0.358-3.740); TOTAL PROTEIN 7.3 GM/DL (6.4-8.2); TRIGLYCERIDES LEVEL 407 MG/DL (<150)
[2021-01-19 17:18] LABS: VITAMIN B12 LEVEL 901 PG/ML (247-911)
[2021-01-19 17:19] LABS: FOLATE 10.7 NG/ML (>5.4)
== END ==
LOC: M SFHCADAM 14:17
PROVIDERS: ATTEND Family Medicine
DX: I48.0 Paroxysmal atrial fibrillation (principal); I11.0 Hypertensive heart disease with heart failure; R53.83 Other fatigue; E78.2 Mixed hyperlipidemia; Z79.899 Other long term (current) drug therapy
CPT/HCPCS: 80053; 80061; 82607; 82746; 83036; 83735; 84439; 84443; 85027; G0463

== ENCOUNTER → 2021-04-13 | Outpatient (REF) | payer MEDICARE, MEDICAID ==
[~2021-04-13] MED LIST changes: +FAMO10TA50 PO; -FAMO1TAB25 PO
[2021-04-13 20:09] LABS: HEMATOCRIT 45.6 % (36.0-47.0); HEMOGLOBIN 14.4 g/dl (12.0-15.5); MEAN CORPUSCULAR HEMOGLOBIN 30.8 pg (27.0-33.0); MEAN CORPUSCULAR HGB CONC 31.6 g/dl (32.0-36.5); MEAN CORPUSCULAR VOLUME 97.6 fl (80.0-96.0); PLATELET COUNT, AUTOMATED 261 10^3/uL (150-450); RED BLOOD COUNT 4.67 10^6/uL (4.00-5.40); WHITE BLOOD COUNT 7.7 10^3/uL (4.0-10.0)
[2021-04-13 20:44] LABS: ALBUMIN 3.7 GM/DL (3.2-5.2); ALT/SGPT 22 U/L (12-78); BILIRUBIN,TOTAL 0.5 MG/DL (0.2-1.0); BLOOD UREA NITROGEN 15 MG/DL (7-18); CALCIUM LEVEL 9.4 MG/DL (8.8-10.2); CARBON DIOXIDE LEVEL 29 MEQ/L (21-32); CHLORIDE LEVEL 104 MEQ/L (98-107); CREATININE FOR GFR 0.66 MG/DL (0.55-1.30); GLOMERULAR FILTRATION RATE > 60.0 (>32); GLUCOSE, FASTING 70 MG/DL (70-100); POTASSIUM SERUM 4.9 MEQ/L (3.5-5.1); SODIUM LEVEL 137 MEQ/L (136-145); TOTAL PROTEIN 7.2 GM/DL (6.4-8.2)
== END ==
LOC: M SFHCADAM 15:31
PROVIDERS: ATTEND Family Medicine
DX: I48.0 Paroxysmal atrial fibrillation (principal); I11.0 Hypertensive heart disease with heart failure; R63.0 Anorexia; R53.83 Other fatigue
CPT/HCPCS: 80053; 80162; 85027; G0463

== ENCOUNTER → 2021-05-01 | Outpatient (REF) | payer MEDICARE, MEDICAID ==
[2021-05-02 11:02] LABS: BASO % 0.5 % (0.0-1.0); EOS # 0.1 10^3/uL (0.0-0.5); EOS % 0.7 % (0.0-3.0); HEMATOCRIT 46.9 % (36.0-47.0); HEMOGLOBIN 14.7 g/dl (12.0-15.5); LYMPH # 1.8 10^3/uL (1.5-5.0); LYMPH % 21.2 % (24.0-44.0); MEAN CORPUSCULAR HEMOGLOBIN 30.4 pg (27.0-33.0); MEAN CORPUSCULAR HGB CONC 31.3 g/dl (32.0-36.5); MEAN CORPUSCULAR VOLUME 96.9 fl (80.0-96.0); MONO # 0.6 10^3/uL (0.0-0.8); MONO % 7.5 % (2.0-8.0); NEUTROPHILS # 5.9 10^3/uL (1.5-8.5); NEUTROPHILS % 69.3 % (36.0-66.0); PLATELET COUNT, AUTOMATED 332 10^3/uL (150-450); RED BLOOD COUNT 4.84 10^6/uL (4.00-5.40); WHITE BLOOD COUNT 8.5 10^3/uL (4.0-10.0)
[2021-05-02 11:45] LABS: ALT/SGPT 22 U/L (12-78); BILIRUBIN,TOTAL 0.4 MG/DL (0.2-1.0); BLOOD UREA NITROGEN 12 MG/DL (7-18); CALCIUM LEVEL 9.7 MG/DL (8.8-10.2); CARBON DIOXIDE LEVEL 29 MEQ/L (21-32); CHLORIDE LEVEL 102 MEQ/L (98-107); CREATININE FOR GFR 0.68 MG/DL (0.55-1.30); GLOMERULAR FILTRATION RATE > 60.0 (>32); GLUCOSE, FASTING 89 MG/DL (70-100); POTASSIUM SERUM 6.3 MEQ/L (3.5-5.1); SODIUM LEVEL 134 MEQ/L (136-145); TOTAL PROTEIN 7.5 GM/DL (6.4-8.2)
== END ==
LOC: M SFHCADAM 15:53
PROVIDERS: ATTEND Physician Assistant
DX: F43.23 Adjustment disorder with mixed anxiety and depressed mood (principal); R19.7 Diarrhea, unspecified; R63.4 Abnormal weight loss; R53.1 Weakness; I63.50 Cerebral infarction due to unspecified occlusion or stenosis of unspecified cerebral artery; L05.91 Pilonidal cyst without abscess
CPT/HCPCS: 80053; 85025; 86255; G0463

== ENCOUNTER → 2021-05-02 | Outpatient (CLI) | payer MEDICARE, MEDICAID ==
[2021-05-02 16:59] LABS: BLOOD UREA NITROGEN 14 MG/DL (7-18); CALCIUM LEVEL 9.1 MG/DL (8.8-10.2); CARBON DIOXIDE LEVEL 30 MEQ/L (21-32); CHLORIDE LEVEL 103 MEQ/L (98-107); CREATININE FOR GFR 0.67 MG/DL (0.55-1.30); GLOMERULAR FILTRATION RATE > 60.0 (>32); GLUCOSE, FASTING 78 MG/DL (70-100); POTASSIUM SERUM 4.6 MEQ/L (3.5-5.1); SODIUM LEVEL 137 MEQ/L (136-145)
== END ==
LOC: M WUC 14:46
PROVIDERS: ATTEND Physician Assistant
DX: E87.5 Hyperkalemia (principal)

== ENCOUNTER 2021-08-27 15:59 | Emergency (ER) | payer MEDICARE, MEDICAID ==
[~2021-08-27] VITALS: Ht 149.9 cm; Wt 49.5 kg
--- OUTSIDE RECORDS SUMMARY | 2021-08-27 16:04 | CCD ---
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 10/06/2019 - 12:00AM Ladarius Branham MD, FACS Active Pseudophakic - Both Eyes 10/06/2019 - 12:00AM Ladarius Branham MD, FACS Active Ptosis Myogenic 10/06/2019 - 12:00AM Ladarius briggs MD, FACS Active Ectropion Senile 10/06/2019 - 12:00AM Ladarius orozco MD, FACS Active Senile ectropion of left lower eyelid 10/06/2019 - 12:00AM Ladarius Branham MD, FACS Active Dry Eye Syndrome Both Eyes 10/06/2019 - 12:00AM Ladarius Branham MD, FACS Active Vitreous Disorders Degeneration 10/06/2019 - 12:00AM Ladarius Branham MD, FACS Active Plan of Treatment Future Appointments Date Time Location Provider 1 Year Follow-Up 12/24/2021 1:30PM Ladarius Branham MD [facility] Ladarius Branham MD, FACS Assessments Includes: Assessments for all patient encounters Findings Encounter Date Dry eye syndrome of both eyes 1 Year Follow-Up with Ramon Branham MD, FACS 12/18/2020 Posterior capsule opacification of eccentric capsule i n both eyes 1 Year Follow- Up with Ladarius Branham MD, FACS 12/18/2020 Pseudophakia in both eyes 1 Year Follow-Up with Ladarius Woods MD, FACS 12/18/2020 Vitreous degeneration 1 Year Follow-Up with Ladarius orozco MD, FACS 12/18/2020 Dry eye syndrome of both eyes NEW PATIENT WITH REFERRA L with Ladarius Branham MD, FACS 10/06/2019 Myogenic ptosis NEW PATIENT WITH REFERRAL with Ladarius Branham MD, FACS 10/06/2019 Posterior capsule opacification of eccentric capsule i n both eyes NEW PATIENT WITH REFERRAL with Ladarius Branham MD, FACS 10/06/2019 Pseudophakia in both eyes NEW PATIENT WITH REFERRAL [facility] Ladarius Branham MD, [facility] 10/06/2019 Senile ectropion NEW PATIENT WITH REFERRAL with Ladarius Branham MD, FACS 10/06/2019 Vitreous degeneration NEW PATIENT WITH REFERRAL [facility] Ladarius Branham MD, [facility] 10/06/2019 Instructions Instructions not supported for this document typeNo Instructions Recorded Medical Equipment - Implanted Devices Includes: Current and historical DevicesNo Medical Equipment Recorded Medications Includes: Current and historical Medications Current Medications (continue as prescribed) Digoxin 125 MCG Oral Tablet 10/06/2019 Provider: Diagnosis: Pantoprazole 40 MG Oral Tablet 10/06/2019 Provider: Diagnosis: FLUoxetine HCl 10 MG Oral Tablet 10/06/2019 Provide r: Diagnosis: Vitamin D3 Oral Capsule 10/06/2019 Provider: Diagnosis: Aspirin 81 MG Oral Tablet 10/06/2019 Provider: Diagnosis: Spironolactone 25 MG Oral Tablet 10/06/2019 Provide r: Diagnosis: Carvedilol 12.5 MG Oral Tablet 10/06/2019 Provider: Diagnosis: FLUoxetine HCl 10 MG Oral Capsule 10/06/2019 Provid er: Diagnosis: Medications Administered Includes: Administered Medications in patient's chartNo Administered Medications Recorded Vital Signs Includes: Vital Signs from 07/07/2020 through 07/07/2021No Vital Signs Recorded For Specified Dates Results Includes: Results from 07/07/2020 through 07/07/2021No Results Recorded For Specified Dates History of Present Illness History of Present Illness not supported for this document typeNo History of Present Illness Recorded Social History Description Last Updated Tobacco non-user 12/18/2020 No tobacco use 12/18/2020 Not using drugs 12/18/2020 Smoking status : Never smoker 12/18/2020 Never smoked 10/06/2019 A social drinker 10/06/2019 Procedures and Surgical History Includes: Procedures from 07/07/2020 through 07/07/2021 Procedures Code Diagnosis Performing Provider Service Location Service Date Intermediate Eye Exam Established Patient 19[address] Dry eye syndrome of bilateral lacrimal glands, Vitreous degeneration, bilateral, Other secondary cataract, bilateral, Presence of intraocular lens Ladarius Branham MD, FACS Ladarius Branham MD [facility] 12/18/2020 Surgical History Last Updated History of cataract surgery PCIOL OU 10/06/2019 Surgical / procedural history Appendect carole, Colonoscopy, PTCA/stent stent LAD, PTCA/stent RCA, Cardiac Cath, Cystoscopy, Pacemaker 10/06/2019 Medical History Includes: Medical History in patient's chart Description Last Updated Reported medical history GERD, Osteopen ia, Diverticulitis, Renal Stones, Amiodarone indiced hepatotoxicity, Cardiomyopathy, Rhabdomyolysis, CVA with right sided weakness, Depression, Hematuria, Covid Vaccine Dose 1 on 12/01/20 12/18/2020 Recent change in medical history Covid Vaccine Dose 1 on 12/01/20 12/18/2020 Currently wearing eyeglasses 10/06/2019 History of coronary artery disease 10/06/2019 History of arthritis 10/06/2019 History of hyperlipidemia 10/06/2019 History of hypertension 10/06/2019 Family History Includes: Family History in patient's chart Description Last Updated [place] history of family history of cancer 12/18/2020 [place] history of heart disease 12/18/2020 Review of Systems Review of Systems not supported for this document typeNo Review of Systems Recorded Mental Status Mental Status not supported for this document type Description Oriented to time, place, and person Difficulty reading fine print Anxiety Functional Status Functional Status not supported for this document typeNo Functional Status Recorded Physical Exam Physical Exam not supported for this document typeNo Physical Exam Recorded Immunizations Includes: Immunizations in patient's chartNo Immunizations Recorded Allergies Includes: Active, inactive, and resolved AllergiesNo Known Allergies Encounters Includes: Encounters from 07/07/2020 through 07/07/2021 Encounter Provider Location Date Check-In Time Check-Out Time D iagnosis 1 Year Follow-Up Ladarius Branham MD, FACS Ladarius Gallegos [facility] 12/18/2020 1:47PM 2:33PM Pseudophakic - Both Eyes, 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, Dry Eye Syndrome Both Eyes, Vitreous Disorders Degeneration Insurance Includes: Active Insurance Policies Plan Name Member ID Group # Subscriber Relationship Effective Da stephanie 1 - Medicare Part [facility] ([facility]) [id number] Noreen chávez Bryan Self Advance Directives Includes: Current Advance DirectivesNo Advance Directives Recorded Health Concerns Includes: Active Health ConcernsNo Active Health Concerns Recorded Goals Includes: Active GoalsNo Active Goals Recorded Interventions Includes: Interventions for active GoalsNo Interventions Recorded Evaluations & Outcomes Includes: Evaluations & Outcomes for active GoalsNo Outcomes Recorded
--- OUTSIDE RECORDS SUMMARY | 2021-08-27 16:04 | CCD ---
Author Author [facility] Organization [facility] Address Unknown Phone Unavailable Care Team Providers Care Pit Shovel Operator Name Role Phone Hiram Lam Unavailable PROBLEMS Type Condition ICD9-CM Code CBY30-NL Code Onset Dates Condition S tatus W/U Status Risk SNOMED Code Notes Problem Mixed hyperlipidemia E78.2 Active confirmed 934979983 Problem Adjustment disorder with mixed anxiety and depressed mood F43.23 Active confirmed 38890556 Problem Gastro-esophageal reflux disease without esophagitis K21.9 Active confirmed 186437483 Problem Atherosclerotic heart diseas e of [place] coronary artery without angina pectoris I25.10 Active confirmed 147592863721809 Problem Cerebral infarction due to u nspecified occlusion or stenosis of unspecified cerebral artery I63.50 Active confirmed 14 9309696921032 Problem Occlusion and stenosis of unspecified carotid artery I65.29 Active confirmed 502143552 Problem Weakness of right lower extremity M62.81 Active confirmed 540509541 Problem Takotsubo syndrome I51.81 Active confirmed 4 86759449 Problem Medicare annual wellness visit, subsequent Z00.00 Active confirmed 486279117 Problem Paroxysmal atrial fibrillation I48.0 Active confir med 355961171 Problem Recurrent hematuria N02.9 Active confirmed 793781493 Problem Decreased visual acuity H54.7 Active confirmed 16504317 Problem Primary insomnia F51.01 Active confirmed 397 2004 Problem Appetite loss R63.0 Active confirmed 249138 06 Problem Gastroesophageal reflux disease without esophagitis K21.9 Active confirmed 814603782 Problem B12 deficiency E53.8 Active confirmed 72823 4004 Problem Pacemaker Z95.0 Active confirmed 208794586 Problem Hypertensive heart disease with heart failure I11. 0 Active confirmed 77424007 Problem Reactive depression F32.9 Active confirmed 48897696 Problem Unspecified urinary incontinence R32 Active conf irmed 133498169 ALLERGIES Allergen (clinical drug ingredient) Drug/Non Drug Allergy do cumented on EMR Reaction Allergy Type Onset Date Status amiodarone Amiodarone HCl([facility] Code:[address]-30) hepatotox Drug All ergy Active ciprofloxacin Cipro([facility] Code:[address]-18) nausea Drug Allergy Active Pravastatin pravastatin muscle weakness (see 04/10) Non Drug Allergy Active Eliquis gross hematuria, recurrent upon restarting Eliquis 02/11 Non Drug Allergy Active atorvastatin Atorvastatin Calcium([facility] Code:[address]-99) rha bdomyolysis Drug Allergy Active ENCOUNTERS from 1935 to 2021-07-23 Encounter Location Date Provider Diagnosis [facility] [address] [place] [address] Jun, Hiram Lam Adjustment disorder with mixed anxiety a nd depressed mood F43.23 IMMUNIZATIONS Vaccine Route Administration Date Status Influenza (High Dose 65 & up) Unknown Aug 15, 2017 Ad ministered Influenza (High Dose 65 & up) Unknown Aug 27, 2016 Ad ministered Influenza (High Dose 65 & up) Unknown Nov 16, 2015 Re fused Influenza (High Dose 65 & up) IM Intramuscular Jul 27, 2015 A dministered Influenza (High Dose 65 & up) IM Intramuscular Sep 15, 2014 A dministered Pneumococcal Adult 0.5mL Pneumovax 23 Unknown Sep 26 05 Administered Influenza 18 yrs & older Flublok IM Intramuscular Aug 25, 2018 Administered Pneumococcal 0.5mL Prevnar 13 IM Intramuscular Sep 15, 2014 A dministered Influenza 18 yrs & older Flublok IM Intramuscular Aug 20, 2019 Administered Influenza 6mo & up Fluzone Unknown March 06, 2015 Refus ed Influenza 18 yrs & older Flublok IM Intramuscular Aug 25, 2020 Administered Influenza 6mo & up Fluzone Unknown February 06, 2015 Refus ed SOCIAL HISTORY Tobacco Use: Social History Observation Description Date Details (start date - stop date) Never Smoker Sex Assigned At : Social History Observation Description Sex Assigned At Unknown Audit Question Answer Notes Total Score: 1 Interpretation: Alcohol Education Language: Question Answer Notes Languages spoken: Upper Sorbian [facility]: Question Answer Notes [facility] Question Answer Notes Total Score: 0 Interpretation: No problems reported Alcohol Screening: Question Answer Notes Did you have a drink containing alcohol in the past year? No Points 0 Interpretation Negative Tobacco Use: Question Answer Notes Are you a: never smoker REASON FOR REFERRAL No Information VITAL SIGNS No information MEDICATIONS Medication SIG (Take, Route, Frequency, Duration) Notes Start Da te End Date Status Pantoprazole Sodium 40 MG 1 tablet Orally Once a day for 90 Active Carvedilol 12.5 1/2 tab Orally Twice a day Active Depend Undergarments - r32 _ four times daily for 30 days Jul, Active Shower Bar - - - -R53.83 , R29.898 for 99 days Jul, 9 Active Bath/Shower Seat - as directed R29.898 , R53.83 for 99 days Jul, Active Ichthammol 10 % as directed Externally Active Aldactone 25 12.5 MG PO DAILY for 30 Not-Taking Wall Grab Bar - m62.81 _ _ for 90 day(s) Jul, Active FLUoxetine HCl 10 MG take 2 capsules by mouth carlos alberto day Orally Daily for 90 days Active Amoxicillin-Pot Clavulanate 875-125 MG 1 tablet Orally every 12 hrs for 10 day(s) May, Active Vitamin D3 1000 UNIT 1 capsule Orally Once a day Active Digoxin 125 MCG 1 tablet orally Once a day for 90 days Active Vitamin B-12 1000 MCG 1 tablet Orally Once a day Active Adult Brief Medium - as directed R31.0 every 4 hours as needed f or 30 days Jul, Active Spironolactone 25 mg 1/2 tablet Orally Daily for 90 Active Aspirin 81 MG 1 tablet Orally Once a day Active PROCEDURES No Information RESULTS No Results REASON FOR VISIT refills MEDICAL (GENERAL) HISTORY Type Description Date Medical History CAD s/p [place] Abnormal stress test 08/2010 with subsequent stent LAD 09/2010; GIDEON X3 to RCA 06/06--(I advised long-term tx beyond 1 yr due to multiple stents; dc by [facility]) Medical History hypertension Medical History gastroesophageal reflux disease Medical History mild hyperlipidemia-- rhabdo on statin Medical History arthritis of the hands & knees Medical History osteopenia DEXA 03/2007 Medical History mild vitamin D deficiency Medical History diverticulitis 06/2009 Medical History renal stones Medical History left renal cyst CT 07/05 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 Medical History 07/2014 MRI brain - multiple small embolic CVAs and diffuse small vessel ischemic disease Medical History 07/2014 Carotid US - BL less than 50% st enosis Medical History PAF 08/2014; stopped Eliquis 2017 due to hematuria; restarted 02/11 but hematuria recurred so pt stopped it Medical History reactive depression ; started fluoxetine 12/15 with good response (long-term tx advised); dose inc 04/16 to 20 mg/day Medical History hematuria 2017-- neg cystoscopy, urine c ytology01/11 Surgical History appendectomy Surgical History colonoscopy - tubular adenom a (needs repeat colonoscopy in 3 years), diverticulosis, lipoma (Dr. Martin) 08/2007 Surgical History PTCA/stent LAD (GIDEON) 10/05 Surgical History PTCA/stent RCA 06/06 Surgical History Right retained UV junction s tone with hydronephrosis and hydroureter s/p cystoscopy, right ureteroscopy laser lithotripsy insertion of double J stent 03/1012 Surgical History TURBT 12/01/2013 Surgical History cardiac cath, stents patent, distal pDA stenosis too small for PCI 09/09 Surgical History cystoscopy 12/26/17 Surgical History pacemaker 07/14 Hospitalization History SURGERY RELATED Hospitalization History Right retained UV junction s tone with hydronephrosis and hydroureter s/p cystoscopy, right ureteroscopy laser lithotripsy insertion of double J stent 04/10/12 -04/11/12 Hospitalization History amiodarone induced hepatotoxicity an d Rhabdo 11/2014 Goals Section No Information Health Concerns No Information MEDICAL EQUIPMENT No Information MENTAL STATUS No Information FUNCTIONAL STATUS No Information ASSESSMENTS Encounter Date Diagnosis Assessment Notes Treatment Notes Treatm ent Clinical Notes Jun, Adjustment disorder with mix ed anxiety and depressed mood (ICD-10 - F43.23) PLAN OF TREATMENT Medication Medication Name Sig Start Date Stop Date Digoxin 125 MCG 1 tablet orally Once a day for 90 days Amoxicillin-Pot Clavulanate 875-125 MG 1 tablet Orally every 12 hrs for 10 day(s) May, FLUoxetine HCl 10 MG take 2 capsules by mouth carlos alberto day Orally Daily for 90 days Insurance Providers Payer Name Payer Address Payer Phone Insured Name Patient Relati onship to Insured Coverage Start Date Coverage End Date MEDICARE Part A and B [address] [facility] [phone] LIZZETH NUNES self MEDICAID [id number] [address] [facility] [id number] LIZZETH NUNES self
--- OUTSIDE RECORDS SUMMARY | 2021-08-27 16:04 | CCD ---
Author Author [facility] Organization [facility] Address Unknown Phone Unavailable Care Team Providers Care Nursing Instructor Name Role Phone Maranda Lam Unavailable PROBLEMS Type Condition ICD9-CM Code [id number] Code Onset Dates Condition S tatus W/U Status Risk SNOMED Code Notes Problem Atherosclerotic heart diseas e of [place] coronary artery without angina pectoris I25.10 Active confirmed [id number] Problem Mixed hyperlipidemia E78.2 Active confirmed 090171595 Problem Occlusion and stenosis of unspecified carotid artery I65.29 Active confirmed 799376291 Problem Gastro-esophageal reflux disease without esophagitis K21.9 Active confirmed 233971874 Problem Takotsubo syndrome I51.81 Active confirmed 4 36560550 Problem Cerebral infarction due to u nspecified occlusion or stenosis of unspecified cerebral artery I63.50 Active confirmed 14 1100324344823 Problem Gastroesophageal reflux disease without esophagitis K21.9 Active confirmed 788021638 Problem Weakness of right lower extremity M62.81 Active confirmed 612227559 Problem Paroxysmal atrial fibrillation I48.0 Active confir med 122960139 Problem Recurrent hematuria N02.9 Active confirmed 723159147 Problem 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 0 Active confirmed 81222301 Problem Reactive depression F32.9 Active confirmed 70357161 Problem Unspecified urinary incontinence R32 Active conf irmed 693597550 Problem Decreased visual acuity H54.7 Active confirmed 84011298 ALLERGIES Allergen (clinical drug ingredient) Drug/Non Drug Allergy do cumented on EMR Reaction Allergy Type Onset Date Status apixaban Eliquis([facility] Code:[address]-05) gross he maturia, recurrent upon restarting Eliquis 02/11 Drug Allergy Active ciprofloxacin Cipro([facility] Code:[address]-27) nausea Drug Allergy Active pravastatin Pravastatin muscle weakness (see 04/10) Drug Allergy Active atorvastatin Atorvastatin Calcium([facility] Code:[address]-88) rha bdomyolysis Drug Allergy Active amiodarone Amiodarone HCl([facility] Code:[address]-31) hepatotox Drug All ergy Active ENCOUNTERS from 1933 to 2021 Encounter Location Date Provider Diagnosis [facility] [address] [place] [address] Jul, Marandadivya Lam Diarrhea, unspecified type R19.7 ; Gener alized weakness R53.1 and Incontinence of feces, unspecified fecal incontinence type R15.9 IMMUNIZATIONS Vaccine Route Administration Date Status Influenza [...] Education Language: Question Answer Notes Languages spoken: Irish Samaritan: Question Answer Notes Samaritan 21 [facility]oration[facility] Drug and Alcohol Question Answer Notes Total Score: 0 Interpretation: No problems reported Alcohol Screening: Question Answer Notes Did you have a drink containing alcohol in the past year? No Points 0 Interpretation Negative Tobacco Use: Question Answer Notes Are you a: never smoker REASON FOR REFERRAL No Information VITAL SIGNS Weight 115.2 lbs Jul, Height 60 in Jul, BMI 22.50 kg/m2 Jul, Heart Rate 77 /min Jul, Respiratory Rate 18 /min Jul, Temperature 98.2 degrees Fahrenheit Jul, Oximetry 95 Jul, Blood pressure systolic 122 mm Hg Jul, Blood pressure diastolic 80 mm Hg Jul, MEDICATIONS Medication SIG (Take, Route, Frequency, Duration) Notes Start Da te End Date Status Vitamin B-12 1000 MCG 1 tablet Orally Once a day Active Spironolactone 25 mg 1/2 tablet Orally Daily for 90 Active Bath/Shower Seat - as directed R29.898 , R53.83 for 99 days Jul, Active Ichthammol 10 % as directed Externally Active Aspirin 81 MG 1 tablet Orally Once a day Active Vitamin D3 1000 UNIT 1 capsule Orally Once a day Active Carvedilol 12.5 1/2 tab Orally Twice a day Active Depend Undergarments - r32 _ four times daily for 30 days Jul, Active FLUoxetine HCl 10 MG take 2 capsules by mouth carlos alberto day Orally Daily for 90 days Active Aldactone 25 12.5 MG PO DAILY for 30 Not-Taking Digoxin 125 MCG 1 tablet orally Once a day for 90 days Active Pantoprazole Sodium 40 MG 1 tablet Orally Once a day for 90 Active Adult Brief Medium - as directed R31.0 every 4 hours as needed f or 30 days Jul, Active Shower Bar - - - -R53.83 , R29.898 for 99 days Jul, 9 Active Wall Grab Bar - m62.81 _ _ for 90 day(s) Jul, Active PROCEDURES No Information RESULTS No Results REASON FOR VISIT Face to Face MEDICAL (GENERAL) HISTORY Type Description Date Medical History CAD s/p [place] Abnormal stress test 08/2010 with subsequent stent LAD 09/2010; GIDEON X3 to RCA 06/06--(I advised long-term tx beyond 1 yr due to multiple stents; dc by [facility]) Medical History hypertension Medical History gastroesophageal [...] EF 65%, mod severe MR; echo at [facility] 07/14 EF 45-50%,LAE 46 mm, severe MR, [...] Notes Treatment Notes Treatm ent Clinical Notes Jul, Diarrhea, unspecified type (ICD-10 - R19.7) Jul, Generalized weakness (ICD-10 - R53.1) Face to Face completed today Jul, Incontinence of feces, unspe cified fecal incontinence type (ICD-10 - R15.9) History regarding this unclear. SHe isn't really sure when it started and although she describes some abdomonal cramoing and discomfort and diarrhea at times, she states most of the time the stool is soft and formed but she just doesn't get tot he bathroom on time partly due to her generalized weakness which limits her ability to get there quickly Celiac panel in April 2021 was negative. Await GI panel She does not really want to undergo Colonoscopy PLAN OF TREATMENT Treatment Notes Assessment Notes Clinical Notes Generalized weakness Face to Face comple allen today Incontinence of feces, unspecified fecal incontinence type History regarding this unclear. SHe isn't really sure when it started and although she describes some abdomonal cramoing and discomfort and diarrhea at times, she states most of the time the stool is soft and formed but she just doesn't get tot he bathroom on time partly due to her generalized weakness which limits her ability to get there quicklyCeliac panel in April 2021 was negative. Await GI panelShe does not really want to undergo Colonoscopy Future Test Test Name Order Date GASTROINTESTINAL GI PANEL (GIPANEL) [id number] Next Appt Details 3 Months with Jono Reason: Insurance Providers Payer Name Payer Address Payer Phone Insured Name Patient Relati onship to Insured Coverage Start Date Coverage End Date MEDICAID [employer] [address] [facility] [address] LIZZETH NUNES MEDICARE Part A and B [address] [facility] [address] [phone] LIZZETH NUNES self
--- OUTSIDE RECORDS SUMMARY | 2021-08-27 16:05 | CCD ---
Author Author [facility] Organization [facility] Address Unknown Phone Unavailable Care Team Providers Care Desulfurizer Machine Name Role Phone Hiram Lam Unavailable PROBLEMS Type Condition ICD9-CM Code [id number] Code Onset Dates Condition S tatus W/U Status Risk SNOMED Code Notes Problem Mixed hyperlipidemia E78.2 Active confirmed 026471056 Problem Adjustment disorder with mixed anxiety and depressed mood F43.23 Active confirmed 64939453 Problem Gastro-esophageal reflux disease without esophagitis K21.9 Active confirmed 989290467 Problem Atherosclerotic heart diseas e of [place] coronary artery without angina pectoris I25.10 Active confirmed 895069513668421 Problem Cerebral infarction due to u nspecified occlusion or stenosis of unspecified cerebral artery I63.50 Active confirmed 14 6498797153159 Problem Occlusion and stenosis of unspecified carotid artery I65.29 Active confirmed 526604307 Problem Weakness of right lower extremity M62.81 Active confirmed 886215739 Problem Takotsubo syndrome I51.81 Active confirmed 4 01299020 Problem Medicare annual wellness visit, subsequent Z00.00 Active confirmed 064238513 Problem Paroxysmal atrial fibrillation I48.0 Active confir med 074976662 Problem Recurrent hematuria N02.9 Active confirmed 929960260 Problem Decreased visual acuity H54.7 Active confirmed 01369644 Problem Primary insomnia F51.01 Active confirmed 397 2004 Problem Appetite loss R63.0 Active confirmed 724840 06 Problem Gastroesophageal reflux disease without esophagitis K21.9 Active confirmed 769362434 Problem B12 deficiency E53.8 Active confirmed 90906 4004 Problem 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 0 Active confirmed 01693078 Problem Reactive depression F32.9 Active confirmed 65995762 Problem Unspecified urinary incontinence R32 Active conf irmed 141760139 ALLERGIES Allergen (clinical drug ingredient) Drug/Non Drug Allergy do cumented on EMR Reaction Allergy Type Onset Date Status amiodarone Amiodarone HCl([facility] Code:[address]-45) hepatotox Drug All ergy Active ciprofloxacin Cipro([facility] Code:[address]-99) nausea Drug Allergy Active Pravastatin pravastatin muscle weakness (see 04/10) Non Drug Allergy Active Eliquis gross hematuria, recurrent upon restarting Eliquis 02/11 Non Drug Allergy Active atorvastatin Atorvastatin Calcium([facility] Code:[address]-75) rha bdomyolysis Drug Allergy Active ENCOUNTERS from 1933 to 2021-06-13 Encounter Location Date Provider Diagnosis [facility] [address] [place] [address] Apr, Hiram Lam Vulvar cysts N90.7 IMMUNIZATIONS Vaccine Route Administration Date Status Influenza [...] Education Language: Question Answer Notes Languages spoken: Vietnamese Advent: Question Answer Notes [facility] 21 [facility] Drug and Alcohol Question Answer Notes Total Score: 0 Interpretation: No problems reported Alcohol Screening: Question Answer Notes Did you have a drink containing alcohol in the past year? No Points 0 Interpretation Negative Tobacco Use: Question Answer Notes Are you a: never smoker REASON FOR REFERRAL from 1933 to 2021-06-13 Reason draining cyst Diagnosis 1 Vulvar cysts (N90.7) Referral Organization [facility] Ferdinand Referring Provider First Name Hiram Referring Provider Last Name Genaro Referring Provider Specialty Family Medicine Referred Organization [facility] Referred Provider Bin Villalta Referred Address [address] [place] [phone] [place] [phone] Referred Provider Specialty OB - Gynecology Referral Priority Urgent General Notes Harmony Abbott 05/17/2021 4: 41:11 PM > faxed VITAL SIGNS Weight 112 lbs Apr, Height 60 in Apr, BMI 21.87 kg/m2 Apr, Heart Rate 70 /min Apr, Respiratory Rate 18 /min Apr, Temperature 96.6 degrees Fahrenheit Apr, Oximetry 97 Apr, Blood pressure systolic 128 mm Hg Apr, Blood pressure diastolic 78 mm Hg Apr, MEDICATIONS Medication SIG (Take, Route, Frequency, Duration) Notes Start Da te End Date Status Pantoprazole Sodium 40 MG 1 tablet Orally Once a day for 90 Active Carvedilol 12.5 1/2 tab Orally Twice a day Active Spironolactone 25 mg 1/2 tablet Orally Daily for 90 Active Shower Bar - - - -R53.83 , R29.898 for 99 days Jul, 9 Active Bath/Shower Seat - as directed R29.898 , R53.83 for 99 days Jul, Active Ichthammol 10 % as directed Externally Active Aldactone 25 12.5 MG PO DAILY for 30 Not-Taking Wall Grab Bar - m62.81 _ _ for 90 day(s) Jul, Active Depend Undergarments - r32 _ four times daily for 30 days Jul, Active FLUoxetine HCl 10 MG take 2 capsules by mouth every day Orally Daily Active Vitamin D3 1000 UNIT 1 capsule Orally Once a day Active Amoxicillin-Pot Clavulanate 875-125 MG 1 tablet Orally every 12 hrs for 10 day(s) May, Active Vitamin B-12 1000 MCG 1 tablet Orally Once a day Active Adult Brief Medium - as directed R31.0 every 4 hours as needed f or 30 days 17 Jul, 2019 Active Digoxin 125 MCG 1 tablet orally Once a day for 90 Active Aspirin 81 MG 1 tablet Orally Once a day Active PROCEDURES No Information RESULTS No Results REASON FOR VISIT per SURINDER, sore on bottom MEDICAL (GENERAL) HISTORY Type Description Date Medical History CAD s/p [place] Abnormal stress test 08/2010 with subsequent stent LAD 09/2010; GIDEON X3 to RCA 06/06--(I advised long-term tx beyond 1 yr due to multiple stents; dc by [facility]) Medical History hypertension Medical History gastroesophageal [...] EF 65%, mod severe MR; echo at [facility] 07/14 EF 45-50%,LAE 46 mm, severe MR, [...] Notes Treatment Notes Treatm ent Clinical Notes Apr, Vulvar cysts (ICD-10 - N90.7) I called Dr Villalta, he will see her tomorrow PLAN OF TREATMENT Medication Medication Name Sig Start Date Stop Date Amoxicillin-Pot Clavulanate 875-125 MG 1 tablet Orally every 12 hrs for 10 day(s) May, Treatment Notes Assessment Notes Clinical Notes Vulvar cysts I called Dr Villalta, he will see her tomorrow Referrals Referral Date Details draining cyst, Bin Villalta, [address] [place], [address], Next Appt Details prn Reason: Insurance Providers Payer Name Payer Address Payer Phone Insured Name Patient Relati onship to Insured Coverage Start Date Coverage End Date MEDICARE Part A and B [address] [facility] [id number] [phone] LIZZETH NUNES MEDICAID [facility] [address] [place] [address] [phone] LIZZETH NUNES
--- OUTSIDE RECORDS SUMMARY | 2021-08-27 16:05 | CCD ---
Author Author [facility] Organization [facility] Address Unknown Phone Unavailable Care Team Providers Care Public Health Sanitarian Technician Name Role Phone Bin Villalta Unavailable PROBLEMS Type Condition ICD9-CM Code ZWP82-IP Code Onset Dates Condition S tatus W/U Status Risk SNOMED Code Notes Problem Mixed hyperlipidemia E78.2 Active confirmed 788042124 Problem Adjustment disorder with mixed anxiety and depressed mood F43.23 Active confirmed 85960468 Problem Gastro-esophageal reflux disease without esophagitis K21.9 Active confirmed 844606805 Problem Atherosclerotic heart diseas e of [place] coronary artery without angina pectoris I25.10 Active confirmed 036828307692475 Problem Cerebral infarction due to u nspecified occlusion or stenosis of unspecified cerebral artery I63.50 Active confirmed 14 3830503242015 Problem Occlusion and stenosis of unspecified carotid artery I65.29 Active confirmed 542882410 Problem Weakness of right lower extremity M62.81 Active confirmed 803793708 Problem Takotsubo syndrome I51.81 Active confirmed 4 93691134 Problem Medicare annual wellness visit, subsequent Z00.00 Active confirmed 294333227 Problem Paroxysmal atrial fibrillation I48.0 Active confir med 014324220 Problem Recurrent hematuria N02.9 Active confirmed 162802632 Problem Decreased visual acuity H54.7 Active confirmed 56972448 Problem Primary insomnia F51.01 Active confirmed 397 2004 Problem Appetite loss R63.0 Active confirmed 381052 06 Problem Gastroesophageal reflux disease without esophagitis K21.9 Active confirmed 465956224 Problem B12 deficiency E53.8 Active confirmed 55672 4004 Problem 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 0 Active confirmed 99449620 Problem Reactive depression F32.9 Active confirmed 01473707 Problem Unspecified urinary incontinence R32 Active conf irmed 575641857 ALLERGIES Allergen (clinical drug ingredient) Drug/Non Drug Allergy do cumented on EMR Reaction Allergy Type Onset Date Status amiodarone Amiodarone HCl([facility] Code:[address]-89) hepatotox Drug All ergy Active ciprofloxacin Cipro([facility] Code:[address]-45) nausea Drug Allergy Active Pravastatin pravastatin muscle weakness (see 04/10) Non Drug Allergy Active Eliquis gross hematuria, recurrent upon restarting Eliquis 02/11 Non Drug Allergy Active atorvastatin Atorvastatin Calcium([facility] Code:[address]-91) rha bdomyolysis Drug Allergy Active ENCOUNTERS from 1933 to 2021-06-04 Encounter Location Date Provider Diagnosis [facility] [address] [facility] [phone] [place] [address] May, Bin Villalta Vulvar abscess N76.4 and Abscess of Bartholin's gland N75.1 IMMUNIZATIONS Vaccine Route Administration Date Status Influenza [...] Education Language: Question Answer Notes Languages spoken: German Scientologist: Question Answer Notes Scientologist 21 [facility] Drug and Alcohol Question Answer Notes Total Score: 0 Interpretation: No problems reported Alcohol Screening: Question Answer Notes Did you have a drink containing alcohol in the past year? No Points 0 Interpretation Negative Tobacco Use: Question Answer Notes Are you a: never smoker REASON FOR REFERRAL No Information VITAL SIGNS Weight 114 lbs May, Weight-kg 51.71 kg May, Height 60 in May, BMI 22.26 kg/m2 May, Blood pressure systolic 130 mm Hg May, Blood pressure diastolic 80 mm Hg May, MEDICATIONS Medication SIG (Take, Route, Frequency, Duration) [...] needed f or 30 days Jul, Active Digoxin 125 MCG 1 tablet orally Once a day for 90 Active Aspirin 81 MG 1 tablet Orally Once a day Active PROCEDURES from 1933 to 2021-06-04 Procedure Date Ordered Result Body Site Med: Derm Lidocaine 1% intradermally 30ml SDV 2021-05-29 N/ A RESULTS No Results REASON FOR VISIT Bartholin Cyst MEDICAL (GENERAL) HISTORY Type Description Date Medical History CAD s/p [place] Abnormal stress test 08/2010 with subsequent stent LAD 09/2010; GIDEON X3 to RCA 06/06--(I advised long-term tx beyond 1 yr due to multiple stents; dc by [facility]) Medical History hypertension Medical History gastroesophageal [...] EF 65%, mod severe MR; echo at [facility] 07/14 EF 45-50%,LAE 46 mm, severe MR, [...] Notes Treatment Notes Treatm ent Clinical Notes May, Vulvar abscess (ICD-10 - N76.4) May, Abscess of Bartholin's gland (ICD-10 - N75.1) PLAN OF TREATMENT Medication Medication Name Sig Start Date Stop Date Amoxicillin-Pot Clavulanate 875-125 MG 1 tablet Orally every 12 hrs for 10 day(s) May, Insurance Providers Payer Name Payer Address Payer Phone Insured Name Patient Relati onship to Insured Coverage Start Date Coverage End Date MEDICARE Part A and B [address] [facility] [id number] LIZZETH NUNES MEDICAID [employer] [address] [facility] [address] LIZZETH NUNES
--- OUTSIDE RECORDS SUMMARY | 2021-08-27 16:05 | CCD ---
Author Author [facility] Organization [facility] Address Unknown Phone Unavailable Care Team Providers Care Sld Inclusion Teacher Name Role Phone Cristiana Ag, Jhoana Durand MD, FACS Unavailable Unavailable Zendejas Ag, Jhoana Durand MD, FACS Unavailable Unavailable Zendejas Ag, Jhoana Durand MD, FACS Unavailable Unavailable Zendejas Ag, Jhoana Durand MD, FACS Unavailable Unavailable Zendejas Ag, Jhoana Durand MD, FACS Unavailable Unavailable Zendejas Ag, Jhoana Durand MD, FACS Unavailable Unavailable Zendejas Ag, Jhoana Durand MD, FACS Unavailable Unavailable Zendejas Ag, Jhoana Durand MD, FACS Unavailable Unavailable Zendejas Ag, Jhoana Durand MD, FACS Unavailable Unavailable Zendejas Ag, Jhoana Durand MD, FACS Unavailable Unavailable Zendejas Ag, Jhoana Durand MD, FACS Unavailable Unavailable Zendejas Ag, Jhoana Durand MD, FACS Unavailable Unavailable Zendejas Ag, Jhoana Durand MD, FACS Unavailable Unavailable Zendejas Ag, Jhoana Durand MD, FACS Unavailable Unavailable Zendejas Ag, Jhoana Durand MD, FACS Unavailable Unavailable Zendejas Ag, Jhoana Durand MD, FACS Unavailable Unavailable Zendejas Ag, Jhoana Durand MD, FACS Unavailable Unavailable Zendejas Ancelmo, Jhoana Durand MD, FACS Unavailable Unavailable Zendejas Ag, Jhoana Duradn MD, FACS Unavailable Unavailable Zendejas Ag, Jhoana Durand MD, FACS Unavailable Unavailable Zendejas Ag, Jhoana Durand MD, FACS Unavailable Unavailable Zendejas Ag, Jhoana Durand MD, FACS Unavailable Unavailable Zendejas Ag, Jhoana Durand MD, FACS Unavailable Unavailable Zendejas Ag, Jhoana Durand MD, FACS Unavailable Unavailable Zendejas Ag, Jhoana Durand MD, FACS Unavailable Unavailable Zendejas Ag, Jhoana Durand MD, FACS Unavailable Unavailable Zendejas Ag, Jhoana Durand MD, FACS Unavailable Unavailable Zendejas Ag, Jhoana Durand MD, FACS Unavailable Unavailable Zendejas Ag, Jhoana Durand MD, FACS Unavailable Unavailable Zendejas Ag, Jhoana Durand MD, FACS Unavailable Unavailable Zendejas Ag, Jhoana Durand MD, FACS Unavailable Unavailable Zendejas Ag, Jhoana Durand MD, FACS Unavailable Unavailable Zendejas Ag, Jhoana Durand MD, FACS Unavailable Unavailable Zendejas Ag, Jhoana Durand MD, FACS Unavailable Unavailable Zendejas Ag, Jhoana Durand MD, FACS Unavailable Unavailable Zendejas Ag, Jhoana Durand MD, FACS Unavailable Unavailable Zendejas Ag, Jhoana Durand MD, FACS Unavailable Unavailable Zendejas Ag, Jhoana Durand MD, FACS Unavailable Unavailable Zendejas Ag, Jhoana Durand MD, FACS Unavailable Unavailable Fons, M Poly COLORMAN Unavailable Unavailable Fons, M Poly COLORMAN Unavailable Unavailable Fons, M Poly COLORMAN Unavailable Unavailable Fons, M Poly COLORMAN Unavailable Unavailable Fons, M Poly COLORMAN Unavailable Unavailable Fons, M Poly COLORMAN Unavailable Unavailable Fons, M Poly COLORMAN Unavailable Unavailable Fons, M Poly COLORMAN Unavailable Unavailable Fons, M Poly COLORMAN Unavailable Unavailable Fons, M Poly COLORMAN Unavailable Unavailable Fons, M Poly COLORMAN Unavailable Unavailable Fons, M Poly COLORMAN Unavailable Unavailable Fons, M Poly COLORMAN Unavailable Unavailable Fons, M Poly COLORMAN Unavailable Unavailable Fons, M Poly COLORMAN Unavailable Unavailable Fons, M Poly COLORMAN Unavailable Unavailable Fons, M Poly COLORMAN Unavailable Unavailable Fons, M Poly COLORMAN Unavailable Unavailable Fons, M Poly COLORMAN Unavailable Unavailable Fons, M Poly COLORMAN Unavailable Unavailable Fons, M Poly COLORMAN Unavailable Unavailable Fons, M Poly COLORMAN Unavailable Unavailable Fons, M Poly COLORMAN Unavailable Unavailable Fons, M Poly COLORMAN Unavailable Unavailable Fons, M Poly COLORMAN Unavailable Unavailable Fons, M Poly COLORMAN Unavailable Unavailable Fons, M Poly COLORMAN Unavailable Unavailable Fons, M Poly COLORMAN Unavailable Unavailable Fons, M Poly COLORMAN Unavailable Unavailable Fons, M Poly COLORMAN Unavailable Unavailable Fons, M Poly COLORMAN Unavailable Unavailable Fons, M Poly COLORMAN Unavailable Unavailable Fons, M Poly COLORMAN Unavailable Unavailable Fons, M Poly COLORMAN Unavailable Unavailable Fons, M Poly COLORMAN Unavailable Unavailable Fons, M Poly COLORMAN Unavailable Unavailable Fons, M Poly COLORMAN Unavailable Unavailable Fons, M Poly COLORMAN Unavailable Unavailable Fons, M Poly COLORMAN Unavailable Unavailable Fons, M Poly COLORMAN Unavailable Unavailable Fons, M Poly COLORMAN Unavailable Unavailable Fons, M Poly COLORMAN Unavailable Unavailable Fons, M Poly COLORMAN Unavailable Unavailable Fons, M Poly COLORMAN Unavailable Unavailable Fons, M Poly COLORMAN Unavailable Unavailable Fons, M Poly COLORMAN Unavailable Unavailable Fons, M Poly COLORMAN Unavailable Unavailable Fons, M Poly COLORMAN Unavailable Unavailable Fons, M Poly COLORMAN Unavailable Unavailable Fons, M Poly COLORMAN Unavailable Unavailable Fons, M Poly COLORMAN Unavailable Unavailable Fons, M Poly COLORMAN Unavailable Unavailable Fons, M Poly COLORMAN Unavailable Unavailable [place], V HERNANDEZ PA-C Unavailable Unavailable Adriana, V HERNANDEZ PA-C Unavailable Unavailable [place], V HERNANDEZ PA-C Unavailable Unavailable [place], V HERNANDEZ PA-C Unavailable Unavailable [place], V HERNANDEZ PA-C Unavailable Unavailable Adriana, V HERNANDEZ PA-C Unavailable Unavailable [place], V HERNANDEZ PA-C Unavailable Unavailable [place], V HERNANDEZ PA-C Unavailable Unavailable [place], V HERNANDEZ PA-C Unavailable Unavailable [place], V HERNANDEZ PA-C Unavailable Unavailable [place], V HERNANDEZ PA-C Unavailable Unavailable [place], V HERNANDEZ PA-C Unavailable Unavailable [place], V HERNANDEZ PA-C Unavailable Unavailable [place], V HERNANDEZ PA-C Unavailable Unavailable RING, K HAI PA Unavailable Unavailable RING, K HAI PA Unavailable Unavailable RING, K HAI PA Unavailable Unavailable RING, K HAI PA Unavailable Unavailable RING, K HAI PA Unavailable Unavailable RING, K HAI PA Unavailable Unavailable RING, K HAI PA Unavailable Unavailable RING, K HAI PA Unavailable Unavailable RING, K HAI PA Unavailable Unavailable RING, K HAI PA Unavailable Unavailable RING, K HAI PA Unavailable Unavailable RING, K HAI PA Unavailable Unavailable RING, K HAI PA Unavailable Unavailable RING, K HAI PA Unavailable Unavailable RING, K HAI PA Unavailable Unavailable RING, K HAI PA Unavailable Unavailable RING, K HAI PA Unavailable Unavailable RING, K HAI PA Unavailable Unavailable RING, K HAI PA Unavailable Unavailable RING, K HAI PA Unavailable Unavailable RING, K HAI PA Unavailable Unavailable Jeannette Bush MD Unavailable Unavailable Jeannette Bush MD Unavailable Unavailable Jeannette Bush MD Unavailable Unavailable Jeannette Bush MD Unavailable Unavailable Jeannette Bush MD Unavailable Unavailable Jeannette Bush MD Unavailable Unavailable Jeannette Bush MD Unavailable Unavailable Jeannette Bush MD Unavailable Unavailable Jeannette Bush MD Unavailable Unavailable Jeannette Bush MD Unavailable Unavailable Jeannette Bush MD Unavailable Unavailable Jeannette Bush MD Unavailable Unavailable Jeannette Buhs MD Unavailable Unavailable Jeannette Bush MD Unavailable Unavailable Jeannette Bush MD Unavailable Unavailable Jeannette Bush MD Unavailable Unavailable Jeannette Bush MD Unavailable Unavailable Jeannette Bush MD Unavailable Unavailable Jeannette Bush MD Unavailable Unavailable Jeannette Bush MD Unavailable Unavailable Jeannette Bush MD Unavailable Unavailable Jeannette Bush MD Unavailable Unavailable Jeannette Bush MD Unavailable Unavailable Jeannette Bush MD Unavailable Unavailable Jeannette Bush MD Unavailable Unavailable Jeannette Bush MD Unavailable Unavailable Jeannette Bush MD Unavailable Unavailable Jeannette Bush MD Unavailable Unavailable Jeannette Bush MD Unavailable Unavailable Jeannette Bush MD Unavailable Unavailable Jeannette Bush MD Unavailable Unavailable Jeannette Bush MD Unavailable Unavailable Jeannette Bush MD Unavailable Unavailable Jeannette Bush MD Unavailable Unavailable Jeannette Bush MD Unavailable Unavailable Jeannette Bush MD Unavailable Unavailable Jeannette Bush MD Unavailable Unavailable Jeannette Bush MD Unavailable Unavailable Jeannette Bush MD Unavailable Unavailable Jeannette Bush MD Unavailable Unavailable Jeannette Bush MD Unavailable Unavailable Jeannette Bush MD Unavailable Unavailable Jeannette Bush MD Unavailable Unavailable Jeannette Bush MD Unavailable Unavailable Jeannette Bush MD Unavailable Unavailable Jeannette Bush MD Unavailable Unavailable Jeannette Bush MD Unavailable Unavailable Jeannette Bush MD Unavailable Unavailable Jeannette Bush MD Unavailable Unavailable Slezka, Vojtech MD Unavailable Unavailable Slezka, Vojtech MD Unavailable Unavailable Slezka, Vojtech MD Unavailable Unavailable Slezka, Vojtech MD Unavailable Unavailable Slezka, Vojtech MD Unavailable Unavailable Slezka, Vojtech MD Unavailable Unavailable Slezka, Vojtech MD Unavailable Unavailable Slezka, Vojtech MD Unavailable Unavailable Slezka, Vojtech MD Unavailable Unavailable Re-disclosure Warning The records that you are about to access may contain information from federally-assisted alcohol or drug abuse programs. If such information is present, then the following federally mandated warning applies: This information has been disclosed to you from records protected by federal confidentiality rules (42 CFR part 2). The federal rules prohibit you from making any further disclosure of this information unless further disclosure is expressly permitted by the written consent of the person to whom it pertains or as otherwise permitted by 42 CFR part 2. A general authorization for the release of medical or other information is NOT sufficient for this purpose. The Federal rules restrict any use of the information to criminally investigate or prosecute any alcohol or drug abuse patient.The records that you are about to access may contain highly sensitive health information, the redisclosure of which is protected by Article 27-F of the [facility] Public Health law. If you continue you may have access to information: Regarding HIV / AIDS; Provided by facilities licensed or operated by the [facility] Office of Mental Health; or Provided by the [facility] Office for People With Developmental Disabilities. If such information is present, then the following [facility] mandated warning applies: This information has been disclosed to you from confidential records which are protected by state law. State law prohibits you from making any further disclosure of this information without the specific written consent of the person to whom it pertains, or as otherwise permitted by law. Any unauthorized further disclosure in violation of state law may result in a fine or assisted sentence or both. A general authorization for the release of medical or other information is NOT sufficient authorization for further disc losure. Allergies and Adverse Reactions Type Description Substance Reaction Status Data Source(s ) Allergy to substance No Known Allergies No known allergies (situation ) ARMIN (Ladarius Ag MD [facility]) Family History Family Member Name Family Member Gender Family Member Status Date o f Status Description Data Source(s) Unknown Unknown Problem MEDENT ([facility]) Unknown Unknown Problem MEDENT ([facility]) Unknown Male Problem MEDENT ([facility]) Unknown Unknown Problem MEDENT ([facility]) mother Encounters Encounter Providers Location Date Indications Data Source(s ) Office Visit, Est Pt., Level 4 PC [address] [place] [address] 08/16/2021 12:00:00 AM EDT eCW1 ([facility]) Unknown [address] [facility] [address] 07/23/2021 12:00:00 AM EDT eCW1 ([facility]) ( [facility] [address] [place] [address] 05/29/2021 12:00:00 AM EDT eCW1 ([facility]) Outpatient [address] [facility] [address] 05/17/2021 12:00:00 AM EDT eCW1 ([facility]) Outpatient YUMIKO-ANETTE 05/10/2021 01:00:15 PM EDT [facility] Outpatient Attender: Poly Mckeonender: HERNANDEZ CADLERON-SJRichard.MALLORY 05/10/2021 12:00:00 AM EDT - 05/10/2021 11:54:47 AM EDT [facility] Outpatient Referrer: Jeannette CALDERON-SJRichard.MALLORY 04/26 12:00:00 AM EDT [facility] Unknown [address] [facility] [address] 05/02/2021 12:00:00 AM EDT eCW1 ([facility]) Unknown [address] [facility] [address] 05/02/2021 12:00:00 AM EDT eCW1 ([facility]) Outpatient [address] [facility] [address] 05/01/2021 12:00:00 AM EDT eCW1 ([facility]) Outpatient Attender: HAI Kahn Primary 04/21/2021 11:25:00 AM EDT MEDENT ([facility]) [place] [address] [facility] [address] 04/13/2021 12:00:00 AM EDT eCW1 ([facility]) [place] [address] [facility] [address] 04/13/2021 12:00:00 AM EDT eCW1 ([facility]) [place] [address] [facility] [address] 02/13/2021 12:00:00 AM EDT eCW1 ([facility]) Out[place] [address] [facility] [address] 01/19/2021 12:00:00 AM EDT eCW1 ([facility]) <td ID="encounterTypeDescriptionID0">1 Y ear Follow-Up</td><td>Ladarius Ag MD, FACS</td><td>Ladarius Branham MD [facility]</td><td>12/18/2020</td><td>1:47PM</td><td>2:33PM</td><td><content ID="encounterDiagnosisID0-0">Pseudophakic - Both Eyes</content>, <content ID="encounterDiagnosisID0-1">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</content>, <content ID="encounterDiagnosisID0-2">Dry Eye Syndrome Both Eyes</content>, <content ID="encounterDiagnosisID0-3">Vitreous Disorders Degeneration</content></td>Outpatient Attender: Ladarius Ag MD, FACS Ladarius Branham MD [facility] 12/18/2020 01:47:00 PM EST - 12/18/2020 02:33:00 PM ES T Vitreous Disorders DegenerationDry Eye Syndrome Both Eyes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Pseudophakic - Both Eyes ARMIN (Ladarius Ag MD [facility]) 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 Posterior Capsule Opacification Eccentri c Capsule Both Eyes Pseudophakic - Both Eyes Outpatient SJP.MALLORY-SJP 11/03/2020 04:52:17 PM EST [facility] Outpatient Attender: HERNANDEZ WILLARDP.MALLORY-SJP.MALLORY 04/2021 12:00:00 AM EST - 11/02/2020 11:53:26 AM EST [facility] Outpatient Referrer: Jeannette CHEEMA.MALLORY-SJP.MALLORY 04/2021 12:00:00 AM EST [facility] Unknown [address] [facility] [address] 10/26/2020 12:00:00 AM EST eCW1 ([facility]) [place] [address] [facility] [address] 09/29/2020 12:00:00 AM EST eCW1 ([facility]) [place] [address] [facility] [address] 09/15/2020 12:00:00 AM EST eCW1 ([facility]) [place] [address] [facility] [address] 08/25/2020 12:00:00 AM EDT eCW1 ([facility]) Immunizations Vaccine Date Status Description Data Source(s) COVID-19 VACCINE Moderna 01/03/2021 12:00:00 AM EST completed [facility] Vaccine Series Complete: YESThis Data wa s Submitted to [facility] Via [employer]. COVID-19 VACCINE, MRNA-1273, LNP-S (MODERNA)/PF 01/03/2021 1 2:00:00 AM EST completed [facility] COVID-19 VACCINE Moderna 12/01/2020 12:00:00 AM EST completed [facility] Vaccine Series Complete: NOThis Data was Submitted to [facility] Via [employer]. COVID-19 VACCINE, MRNA-1273, LNP-S (MODERNA)/PF 12/01/2020 1 2:00:00 AM EST completed [facility] influenza, recombinant, quadrIvalent,injectable, prese rvative free 08/25/2020 04:56:00 PM EDT completed [facility] influenza, recombinant, quadrIvalent,injectable, prese rvative free 08/25/2020 04:56:00 PM EDT completed eCW1 ([facility]) influenza, recombinant, quadrIvalent,injectable, prese rvative free 08/25/2020 04:56:00 PM EDT completed eCW1 ([facility]) influenza, recombinant, quadrIvalent,injectable, prese rvative free 08/25/2020 04:56:00 PM EDT completed eCW1 ([facility]) influenza, recombinant, quadrIvalent,injectable, prese rvative free 08/25/2020 04:56:00 PM EDT completed eCW1 ([facility]) influenza, recombinant, quadrIvalent,injectable, prese rvative free 08/25/2020 04:56:00 PM EDT completed eCW1 ([facility]) influenza, recombinant, quadrIvalent,injectable, prese rvative free 08/25/2020 04:56:00 PM EDT completed eCW1 ([facility]) influenza, recombinant, quadrIvalent,injectable, prese rvative free 08/25/2020 04:56:00 PM EDT completed eCW1 ([facility]) influenza, recombinant, quadrIvalent,injectable, prese rvative free 08/25/2020 04:56:00 PM EDT completed eCW1 ([facility]) influenza, recombinant, quadrIvalent,injectable, prese rvative free 08/25/2020 04:56:00 PM EDT completed eCW1 ([facility]) influenza, recombinant, quadrIvalent,injectable, prese rvative free 08/25/2020 04:56:00 PM EDT completed eCW1 ([facility]) influenza, recombinant, quadrIvalent,injectable, prese rvative free 08/25/2020 04:56:00 PM EDT completed eCW1 ([facility]) influenza, recombinant, quadrIvalent,injectable, prese rvative free 08/25/2020 04:56:00 PM EDT completed eCW1 ([facility]) influenza, recombinant, quadrIvalent,injectable, prese rvative free 08/25/2020 04:56:00 PM EDT completed eCW1 ([facility]) influenza, recombinant, quadrIvalent,injectable, prese rvative free 08/25/2020 04:56:00 PM EDT completed eCW1 ([facility]) influenza, recombinant, quadrIvalent,injectable, prese rvative free 08/25/2020 04:56:00 PM EDT completed eCW1 ([facility]) Medications Medication Brand Name Start Date Product Form Dose Route Admi nistrative Instructions Pharmacy Instructions Status Indications Reaction Description Data Source(s) Amoxicillin 875 MG / Clavulanate 125 MG Oral Tablet Amoxicillin-Pot Clavulanate 875-125 MG Amoxicillin-Pot Clavulanate 875-125 MG 05/29/2021 12:00:00 AM ED T 1.0 {tablet} active Amoxicillin-Pot Cla vulanate 875-125 MG eCW1 ([facility]) Amoxicillin 875 MG / Clavulanate 125 MG Oral Tablet Amoxicillin-Pot Clavulanate 875-125 MG Amoxicillin-Pot Clavulanate 875-125 MG 05/29/2021 12:00:00 AM ED T 1.0 {tablet} active Amoxicillin-Pot Cla vulanate 875-125 MG eCW1 ([facility]) Amoxicillin 875 MG / Clavulanate 125 MG Oral Tablet Amoxicillin-Pot Clavulanate 875-125 MG Amoxicillin-Pot Clavulanate 875-125 MG 05/29/2021 12:00:00 AM ED T 1.0 {tablet} active Amoxicillin-Pot Cla vulanate 875-125 MG eCW1 ([facility]) Cephalexin 500 MG Oral Tablet Cephalexin 04/21/2021 12:00:00 AM EDT ORAL active MEDENT ([facility], [facility]) Cephalexin 500 MG Oral Capsule CEPHALEXIN 04/21/2021 12:00:00 AM EDT capsule 28 TAKE ONE CAPSULE BY MOUTH EVERY 6 HOURS FOR 7 DAYS CINTIA E ONE CAPSULE BY MOUTH EVERY 6 HOURS FOR 7 DAYS SOLD: 04/21/2021 [facility] Clobetasol Propionate 0.5 MG/ML Topical Solution Clobe tasol Propionate 0.05 % Clobetasol Propionate 0.05 % 09/29/2020 12:00:00 AM EST 1.0 {applicat ion} active Clobetasol Propionate 0.05 % eCW1 ([facility]) Fluocinonide 0.5 MG/ML Topical Solution Fluocinonide 0.05 % Fluocinonide 0.05 % 09/29/2020 12:00:00 AM EST 1.0 {application} act pretty Fluocinonide 0.05 % eCW1 ([facility]) Ketoconazole 20 MG/ML Medicated Shampoo Ketoconazole 2 % Ket oconazole 2 % 09/29/2020 12:00:00 AM EST 5.0 {ml} suspended Ketoconazole 2 % eCW1 ([facility]) Fluocinonide 0.5 MG/ML Topical Solution Fluocinonide 0.05 % Fluocinonide 0.05 % 09/29/2020 12:00:00 AM EST 1.0 {application} act pretty Fluocinonide 0.05 % eCW1 ([facility]) Ketoconazole 20 MG/ML Medicated Shampoo Ketoconazole 2 % Ket oconazole 2 % 09/29/2020 12:00:00 AM EST 5.0 {ml} active Ketoconazole 2 % eCW1 ([facility]) Clobetasol Propionate 0.5 MG/ML Topical Solution Clobe tasol Propionate 0.05 % Clobetasol Propionate 0.05 % 09/29/2020 12:00:00 AM EST 1.0 {applicat ion} active Clobetasol Propionate 0.05 % eCW1 ([facility]) Fluocinonide 0.5 MG/ML Topical Solution Fluocinonide 0.05 % Fluocinonide 0.05 % 09/29/2020 12:00:00 AM EST 1.0 {application} seema pended Fluocinonide 0.05 % eCW1 ([facility]) Clobetasol Propionate 0.5 MG/ML Topical Solution Clobe tasol Propionate 0.05 % Clobetasol Propionate 0.05 % 09/29/2020 12:00:00 AM EST 1.0 {applicat ion} active Clobetasol Propionate 0.05 % eCW1 ([facility]) Fluocinonide 0.5 MG/ML Topical Solution Fluocinonide 0.05 % Fluocinonide 0.05 % 09/29/2020 12:00:00 AM EST 1.0 {application} seema pended Fluocinonide 0.05 % eCW1 ([facility]) Ketoconazole 20 MG/ML Medicated Shampoo Ketoconazole 2 % Ket oconazole 2 % 09/29/2020 12:00:00 AM EST 5.0 {ml} active Ketoconazole 2 % eCW1 ([facility]) Clobetasol Propionate 0.5 MG/ML Topical Solution Clobe tasol Propionate 0.05 % Clobetasol Propionate 0.05 % 09/29/2020 12:00:00 AM EST 1.0 {applicat ion} suspended Clobetasol Propionate 0.05 % eCW1 ([facility]) Fluocinonide 0.5 MG/ML Topical Solution Fluocinonide 0.05 % Fluocinonide 0.05 % 09/29/2020 12:00:00 AM EST 1.0 {application} act pretty Fluocinonide 0.05 % eCW1 ([facility]) Ketoconazole 20 MG/ML Medicated Shampoo Ketoconazole 2 % Ket oconazole 2 % 09/29/2020 12:00:00 AM EST 5.0 {ml} active Ketoconazole 2 % eCW1 ([facility]) Clobetasol Propionate 0.5 MG/ML Topical Solution Clobe tasol Propionate 0.05 % Clobetasol Propionate 0.05 % 09/29/2020 12:00:00 AM EST 1.0 {applicat ion} active Clobetasol Propionate 0.05 % eCW1 ([facility]) Ketoconazole 20 MG/ML Medicated Shampoo Ketoconazole 2 % Ket oconazole 2 % 09/29/2020 12:00:00 AM EST 5.0 {ml} active Ketoconazole 2 % eCW1 ([facility]) Ketoconazole 20 MG/ML Medicated Shampoo Ketoconazole 2 % Ket oconazole 2 % 09/29/2020 12:00:00 AM EST 5.0 {ml} suspended Ketoconazole 2 % eCW1 ([facility]) Fluocinonide 0.5 MG/ML Topical Solution Fluocinonide 0.05 % Fluocinonide 0.05 % 09/29/2020 12:00:00 AM EST 1.0 {application} act pretty Fluocinonide 0.05 % eCW1 ([facility]) Clobetasol Propionate 0.5 MG/ML Topical Solution Clobe tasol Propionate 0.05 % Clobetasol Propionate 0.05 % 09/29/2020 12:00:00 AM EST 1.0 {applicat ion} suspended Clobetasol Propionate 0.05 % eCW1 ([facility]) Insurance Providers Payer name Policy type / Coverage type Policy ID Covered constitution party ID Covered constitution party's relationship to l[place]berg Policy [place] Plan Information Medicare (Part B) Medicare Primary [id number] Self 0 [id number] MEDICARE [id number] Suha [id number] MEDICARE [id number] xxxxxxxxxxx [id number] [place] Primary [id number] Self 05 [id number] MEDICARE [id number] Suha [id number] A Medicare [place] Primary [id number] Self [id number] [facility] [facility] [id number] Self [id number] [place] [facility] [id number] Self [id number] [place] [facility] [id number] Self [id number] Aetna (pr) Med[employer]ap Part B [id number] Self [id number] [employer]na (pr) Med[employer]ap Part B [id number] Self [id number] [employer]na (pr) Med[employer]ap Part B [id number] Self [id number] [employer] (pr) Medigap Part B [id number] 229.0 Self [id number] [employer] (pr) Medigap Part B [id number] 229.0 Self [id number] [place] [id number] xxxxxxxxxxx 2 [id number] [place] MED[place] [id number] Suha 7 [id number] MEDICAID [id number] xxxxxxxx [id number] MEDICAID [id number] Suha [id number] COMMERCIAL GENERIC [id number] xxxxxxxx 2 [id number] COMMERCIAL GENERIC [id number] Suha 1 [id number] [facility]-Medicare Part B [id number] [facility]-Medicare Part B [id number] [facility]-Medicare Part B [id number] [facility] [id number] ANSI-Medicare Part B [id number] ANSI-Medicare Part B [id number] ANSI-Medicare Part B [id number] Medicare Dme Supplies Medigap Part B [id number] Self 05 [id number] Medicare Dme Supplies Medigap Part B [id number] Self 05 [id number] Medicare Dme Supplies Medigap Part B [id number] Self 05 [id number] Medicare [place] Medicare Primary [id number] Self 05 [id number] Medicare Dme Supplies Medigap Part B [id number] Self 05 [id number] Medicare [place] Medicare Primary [id number] Self 05 [id number] MEDICARE C [id number] S [id number] A Medicare Dme Supplies Medigap Part B [id number] Self 05 [id number] Medicare [place] Medicare Primary [id number] Self 05 [id number] Medicare Dme Supplies Medigap Part B [id number] Self 05 [id number] Medicare [place] Medicare Primary [id number] Self 05 [id number] Medicare Dme Supplies Medigap Part B [id number] Self 05 [id number] Medicare [place] Medicare Primary [id number] Self 05 [id number] Medicare Dme Supplies Medigap Part B [id number] Self 05 [id number] Medicare [place] Medicare Primary [id number] Self 05 [id number] Medicare Natl Gov't Servi Medicare Primary [id number] Self 0 [id number] Medicare Natl Gov't Servi Medicare Primary [id number] Self Medicare Part B [facility] Other 0 [id number] Self 0 [place] [id number] SP [id number] MEDICARE [id number] SP [id number] [place] [id number] SP [id number] SELF PAY ONLY [id number] SP [id number] MEDICARE [id number] SP [id number] A Medicare Part B [facility] Other 0 [id number] Self 0 ANSI-Medicare Part B [id number] ANSI-Medicare Part B [id number] ANSI-Medicare Part B [id number] ANSI-Medicare Part B [id number] ANSI-Medicare Part B [id number] ANSI-Medicare Part B [id number] ANSI-Medicare Part B [id number] ANSI-Medicare Part B [id number] ANSI-Medicare Part B [id number] Medicare [place]/[facility] Medicare Primary [id number] Self [id number] ANSI-Medicare Part B [id number] ANSI-Medicare Part B [id number] Problems, Conditions, and Diagnoses Code Display Name Description Problem Type Effective Dates Data Source(s) I48.0 Paroxysmal atrial fibrillation Paroxysmal atrial fibri llation Diagnosis 05/10/2021 10:55:42 AM EDT [facility] I34.0 Nonrheumatic mitral (valve) insufficienc y Nonrheumatic mitral (valve) insufficienc Diagnosis 05/10/2021 10:55:42 AM EDT [facility] I10 Essential (primary) hypertension Essential (primary) h ypertension Diagnosis 05/10/2021 10:55:42 AM EDT [facility] E78.5 Hyperlipidemia, unspecified Hyperlipidemia, unspecifie d Diagnosis 05/10/2021 10:55:42 AM EDT [facility] I25.10 Atherosclerotic heart diseas e of [place] coronary artery without angina pectoris Atherosclerotic heart disease of [place] Diagnosis 05/10/2021 10:55:42 AM EDT [facility] Z95.0 Presence of cardiac pacemaker Presence of cardiac pace maker Diagnosis 05/10/2021 10:55:42 AM EDT [facility] R15.9 [id number] Incontinence of feces, unspecifi ed fecal incontinence type Problem 08/21/2021 12:00:00 AM EDT eCW1 ([facility]) R63.0 Loss of appetite Appetite loss Problem 04/13/2021 12:00 :00 AM EDT eCW1 ([facility]) Surgeries/Procedures Procedure Description Date Indications Data Source(s) Med: Derm Lidocaine 1% intradermally 30ml SDV 05/29/20 12:00:00 AM EDT eCW1 ([facility]) BLOOD COUNT COMPLETE AUTO&AUTO DIFRNTL WBC COUNT <td>C BC AND DIFFERENTIAL</td><td>Routine</td><td>05/01/2021</td><td></td><td> </td> 05/01/2021 12:00:00 AM EDT [facility] LIPID PANEL <td>LIPID PANEL</td><td>Rout ine</td><td>05/01/2021</td><td></td><td> </td> 05/01/2021 12:00:00 AM EDT [facility] BASIC METABOLIC PANEL CALCIUM TOTAL <td>BASIC METABOLI C PANEL</td><td>Routine</td><td>05/01/2021</td><td></td><td> </td> 05/01/2021 12:00:00 AM EDT [facility] OFFICE OUTPATIENT VISIT 15 MINUTES 04/21/2021 12:00:00 AM EDT MEDENT ([facility]) Intermediate Eye Exam Established Patient Intermediate Eye Exam Established Patient 12/18/2020 12:00:00 AM EST ARMIN (Kenroy alan Ag MD [facility]) POCT AMB EKG <td>POCT AMB EKG</td><td>Rou jacobo</td><td>11/02/2020 5:14 PM EST</td><td> Paroxysmal atrial fibrillation</td><td> </td> 11/02/2020 10:14:00 PM EST Paroxysmal atrial fibrillation [facility] Paroxysmal atrial fibrillation Immunization: Flublok Quadrivalent (18 years & older) 0.5mL IM (Influenza) 08/25/2020 12:00:00 AM EDT eCW1 ([facility]) Results ID Date Data Source [id number] 05/10/2021 12:59:14 PM EDT [facility] Name Value Range Interpretation Code Description Data Jeanne rce(s) Supporting Document(s) &PDF [facility] IALFWo0iTkGSLnWr05/LUHgtAOPwr6XiKQoaSMf4IDvmUKXhG0PbuMtyWGZULyZQK69jLEGRSWgNDhOq vci [file] DeGsOABPTf/5+HxBV++f//product manufacturing professional+901kFGVkT2X8XLn+WkQ8AmWS/cOXZ2RIo+n//28dACmPYOiaZR9pzW 1P3L37tmgeVADe2jK3Dk+BAr0+J/+lQwX8f/8Hg3/BIXE0w4RBhQvSS0BFT5sUb/bsY11nyF5dRAHXEO 0HFS0GEM2kt4PgMPIuEMnhcqEaWvwQOrDbNAVya4Cb UQm1RL4EFIKzXWqyBL7HA5DiIBL0Z3D5EmO5iTDbBT9cZ9HiKwXyMZ8jeAy7E7PklFVWOQXAg24nv02x ihDxCO5Kr6albwNxKHSfO8DcfxnoOCBTQw0MzAQ9bLFvJv6ISDopuERzKMXqHEPvJ3XfOKEfCD2ItCs3 EPDtWk5XrQA6BRVvE80cWW7AIfXmT3ORXYCbWJI9VC AgUiANCj4+YQqwpLArBD8YKuoS+///PwMYBGRUQBADbvAfDECKEyqIV4+jJBvtxM0vEh5WLnPpzg+hoY FE/xaQqJ64+ELWghQFHqjRgTV+VNpjjuubN4fMAgcgu6hvT3Oo8aUS4BVvDjmiTdZNaaXw+AKoGAAOS9 s9APxnnsTgeEKkIS4IRuOeTE8ysu3QPeZdUGNbQjiY QvndADtiwaTeGeiWUyZbTBLqMqyONgf9VIpaPV7Ocj4hH7S9GKmyVZKWQ0NzkLJcQG1aN7WFU9zbMEcl Lr8ZDeOmT8MaihYbOAtqI8KaFVKsXPGfVu2SHGPrIS4VGTCuUlIcNXANZtBjACHgMpTuZWjiIJAKGPzw XHZmY3FqHTLuSPAxTc9ZIHFeXP9HFFWuSQVlZAW+Pg 0XPWFdEX9sryWkrBN7CXMmrS1gVTAuNVXbILEBOoBkJVVjlQ5fGUAaXhMsYDPJHhImUNNfrA3aRhNdLp PnKXNSLkGtCSAilU9sHnAmBAOrFKFCBxZhTSVywU3uJADxAZCiBSIJVkVbCJYhyB3mFSWwKWEfWBV+Pg 5AXYVlMZq3X7Z0GAOcJDb4E4PCF8BGPZDuDCohAOcg TNTeHIb0C7J3YJZpY3EDU0Gvkqotnp1+AZ9VR04QMCCyHAq0O0V6nRXlH9S5gYqAhKR2ZX2TZZ8WdQa5 aXBseT4+NG2JA1EMOvUyOVc4S5X0vCLhK5A9dTzRxCU9US6NUL0SpICsYUItgtAhFh4xE7CNPCfPFpLS IAP5KB8HyOWzKD1OuDLLC5AcaRBuAj0fKOvviFOylX 5lXu4bSGtpLJ8FEoPWYNuCAKR2RQ7JfCQlMX6CkTXXI9XkwTPwZe6uDEeqiUCjao8+QQ7MWTNnCl0USh 4+YAeijxOmEjxNIjUcBCZzu2JzJSm8JH2BSD9zpNkwWEL0Te9YdLB9vZVbW2oEHV3FzMTzR03dpSYbLU FwAq6ZMtL0fxXbmR9KDI91yGVut9T7VHSnE0eiOSwl j61qSQktXQnLVY8eGQRIWMfuYCidXCB9TpCewoqmFINhAa4MEzObLRu2vH2nuHC1IGD7XyxjsJXbWAej VkXyAvOyVlL1lBvpzwa7GMykTB3eCDycvkzwYVWbIdy+FRioBCRvMSNaXzoWVNIhdR1cziY8ghCpPXez mHBiZy1ka9y0QxkgSt4nEt9hYLs7YuZhHaYvCZLbHz 1nzT51GUcogxHaQa6FVqJbBUY7J1VkLxpJLRZ+HNwmYMdiqMl4fKQgJWIqVk2XCQTdNHYtUIWvCHVwCB AgICAgICAgICAgICAgICAgICAgICAgICAgICAgICAgICAgICAgICAgICAgICAgICAgICAgICAgICAgIC TkPAWjZIYaTUQkXRKuXVEkROBhNNWqPFJeML2CXEHb ICAgICAgICAgICAgICAgICAgICAgICAgICAgICAgICAgICAgICAgICAgICAgICAgICAgICAgICAgICAg MKDoPFKvQQQuVHDwPAOkPDIwFHPtCLQoXKPnDHYxFFAxVNTcGT5EXBWhYASsBNOfZLAaKFDgLNRtCBSv ICAgICAgICAgICAgICAgICAgICAgICAgICAgICAgIC AtNHPbJPOqSCJkWQPzMXJnHNMdTFChEXKrCXKpEXMnCCKnAZEmGPXjHSLoKAPzQN7FORByYJAvPCJoIX AgICAgICAgICAgICAgICAgICAgICAgICAgICAgICAgICAgICAgICAgICAgICAgICAgICAgICAgICAgIC VtKIHbOHXkXBDsTMUdYQCgZSCyRQYjUHKxXAZdNQ7B ICAgICAgICAgICAgICAgICAgICAgICAgICAgICAgICAgICAgICAgICAgICAgICAgICAgICAgICAgICAg ZNOeSFWnWLLmDLZdRALlCJRoAUXxSSRfONRaIPYjCGSvSBRpBVJdTB4PBHBkJTRqJALcJRYmUEHkQPHq ICAgICAgICAgICAgICAgICAgICAgICAgICAgICAgIC NzRAEyJAAsYEZyHSAqTGSzRXXpPYOhLYWlHQUrVHMqNULsFTWrJGUaNCVlAPKzFKXuKC2EJTMzISItLJ AgICAgICAgICAgICAgICAgICAgICAgICAgICAgICAgICAgICAgICAgICAgICAgICAgICAgICAgICAgIC AgICAgICAgICAgICAgICAgICAgICAgICAgICAgICAg SE8YWJZbEUUdWFRxUESmEDKbJDRcXFBsCFUrHDCfVEWbGXSqVOEdWCCaMLWmDDBySFEnBYXvJHGzMPPj DIYlDWXgDGXfGQWvHTWfCFVrKZRgOHXeZLHoYNDpKKFtPSVcGBOjBQVoIE5BRWJmIINxNRWeIXSsJLZt ICAgICAgICAgICAgICAgICAgICAgICAgICAgICAgIC CkXOGlARIhTLZgTUKaGFFvAVMxTRPqCQHdVFLsBWEiXMBiCUOeMNUmTWFhXBNeKWNnBNZlAQ3EALUdEL AgICAgICAgICAgICAgICAgICAgICAgICAgICAgICAgICAgICAgICAgICAgICAgICAgICAgICAgICAgIC AgICAgICAgICAgICAgICAgICAgICAgICAgICAgICAg SCVrCN7AGK42yHDdg8F6QUZlGI0devr/Au0DUPascpGknRAbPX8SUlEeCQ3asi1VLfUzQV4fvg8GXYlG FwVeF6S3jMRzCTNuQVWTSyFbA64vCWdlAw58PGzcTLInRmNeOYb2Tg8KEdNmN2doNCPsMnQ7HTTrMyJ7 UPJiMjObLWiyRD0Pq8NchOTyZSp+Xp7WNZ7gw5TvXO kgJgFsMS1dqz0UMWhLNaPlL2S9mOVeZ8Y8XTzqBa5VBNJiEPLgStUgADCZSJkqDX9ECL3mxrX5VJ6BbU XkDCSdGSEipTIfNEm7D50fuDBnSUhaPO3VSAL+Yajaira+Nb5FZLTbASWtHJPkDzAeZXXUOaVdR97tcCVrOP XcKNHtSHPhBa1BHLHaC7HgfyFflDfluvYyGTPaJZLK GJ2BBVipncJfpQOpgXuuQK84yFrmQJ5SWt8YByOyCT5hnf8XlXMwTj3ZFFUhKJ4NZCHxQKTcIHRpJZO5 CZEpOtMuXIoaRJMpMAAxOVF0ZSRiLOHrQD7DVzLlDZYrEVf3LIMfHSOvMVCykc7UPXVlNUReGVk4RqDc HVOgFAByWGqgWTSvKDVsDRgmAMPrVFZiYD6YHdSiRD LnGPH4ESvbLNBeENPqbq3IOOUrODJiQflpRnPtUMAuTWVbSIweXSOuCFA8FZI8AWKtEHXvGX0RByMyDJ BfRUVqMsayRNGnJWRexq7MUYWeSUHvDeFcOgYoVOOpQPRyKOaaBUEaTBW3WjCsJXAoZLMkYP5JMsCvUU GrLXX4RDKoXJEwAUWlnb0XTCHrASSlXbU5AqFuOBWv DTVdGAxrNZVrGYK8XFB9ZHLtIREsHS1DXoMqTLOcWQp4COBzROTeKILapz7HVLGuIYBkGbPhASPnVGZx AFYvGUesGZGxZIYhFZI4AZJyFFRwFJ3UTbDuHXMrCLBwXgvuIWNzOUAjtr2PZCVmTZVpCiA9QDVoFYAw WMKbQWqbCSYrZVWtUWX5ZBOxYVHsVW2URwDsACDsWW I7LhtkIHNaISJmag9WJLHcNRJpKOB0BuYcLKFzOOEmIZbbFZAoTNI9TOV2RQBhVONfZV0DLcLfXIGbSH M8VuugKHCqSJYzuj5PFJDiKYVnGJs4GiFwEMVsXWOtCMtrJSKeLSI0IZV5ZVLnZGUlKP0RZtUkUKXbME T3CEBnBQSkQGAezq2VTLWrKKVvKgh0TSNvJTIcPILf XTtcAAHvVRI2VMx1XPWnGALgSB5WZdPxCWKeWJraTXsePGTzMHPxcw7HSZVtBFEgYyT9PbKoLENtVCJs HUyaRCXjKBK7MJG4DLXnUPDnTQ0OUdJeMDHzLEc7RFKoHRCxTJTwln4WUPMbZTVhGSj9AbBrLPUjXDJd BQz6yrAwcBOgNFc6GE0VW0WfgjJhQyOVNp9Kr459EW LcRLUgWp7KU7guTo1jYLYyYFURGz8BNNu9WYywUzY6LyYoAkSpVnmdYWZwBsBcDNyeSgicN0MeMlW+ID onNXRxMEIxIjLfYkDhJJGzWZXdAIWeULGcPOPuGvYtZY9xDNNSYz6+EEdgrOEitRktNKFNKwXoTCF0CC yjISOMDl0S ID Date Data Source Celiac Disease Comprehensive 05/01/2021 12:00:00 AM EDT eCW1 ([facility]) Name Value Range Interpretation Code Description Data Jeanne rce(s) Supporting Document(s) Gliadin IgG Ab [Units/volume] in Serum by Immunoassay 1 0-19 DEAMIDATED GLIADIN ABS, IgG eCW1 ([facility]) Gliadin IgA Ab [Units/volume] in Serum by Immunoassay 3 0-19 DEAMIDATED GLIADIN ABS, IgA eCW1 ([facility]) Tissue transglutaminase IgG Ab [Units/volume] in Serum <2 0-5 t- TRANSGLUTAMINASE(tTG) IgG eCW1 ([facility]) Tissue transglutaminase IgA Ab [Units/volume] in Serum <2 0-3 t- TRANSGLUTAMINASE(tTG) IgA eCW1 ([facility]) IgA [Mass/volume] in Serum or Plasma 283 64-422 IMMUNOGLOBULIN A eCW1 ([facility]) Endomysium IgA Ab [Presence] in Serum Negative Negative ENDOMYSIAL ANTIBODY IgA eCW1 ([facility]) ID Date Data Source Comprehensive Metabolic Profile (CMP) 05/01/2021 12:00:00 AM EDT eCW1 ([facility]) Name Value Range Interpretation Code Description Data Jeanne rce(s) Supporting Document(s) 89 70-100 GLUCOSE, FASTING eCW1 ([facility]) 12 7-18 BLOOD UREA NITROGEN eCW1 ([facility]) 0.68 0.55-1.30 CREATININE FOR GFR eCW1 ([facility]) > 60.0 >32 GLOMERULAR FILTRATION RATE eCW 1 ([facility]) 134 136-145 SODIUM LEVEL eCW1 ([facility]) 29 21-32 CARBON DIOXIDE LEVEL eCW1 ([facility]) 102 98-107 CHLORIDE LEVEL eCW1 ([facility]) 6.3 3.5-5.1 POTASSIUM SERUM eCW1 ([facility]) 22 12-78 ALT/SGPT [facility]CW[facility] 20 7-37 AST/SGOT eCW1 ([facility]) 9.7 8.8-10.2 CALCIUM LEVEL eCW1 ([facility]) 66 45-117 ALKALINE PHOSPHATASE eCW1 ([facility]) 7.5 6.4-8.2 TOTAL PROTEIN eCW1 ([facility]) 0.4 0.2-1.0 BILIRUBIN,TOTAL eCW1 ([facility]) 4.0 3.2-5.2 ALBUMIN eCW1 ([facility]) 1.1 1.2-2.2 ALBUMIN/GLOBULIN RATIO eCW1 ([facility]) ID Date Data Source CBC with Differential 05/01/2021 12:00:00 AM EDT eCW1 ([facility]) Name Value Range Interpretation Code Description Data Jeanne rce(s) Supporting Document(s) 14.7 12.0-15.5 HEMOGLOBIN eCW1 ([facility]) 8.5 4.0-10.0 WHITE BLOOD COUNT eCW1 ([facility]) 4.84 4.00-5.40 RED BLOOD COUNT eCW1 ([facility]) 96.9 80.0-96.0 MEAN CORPUSCULAR VOLUME e CW1 ([facility]) 30.4 27.0-33.0 MEAN CORPUSCULAR HEMOGLOB IN eCW1 ([facility]) 46.9 36.0-47.0 HEMATOCRIT eCW1 ([facility]) 332 150-450 PLATELET COUNT, AUTOMATED eCW1 ([facility]) 12.4 11.5-14.5 RED CELL DISTRIBUTION WID TH eCW1 ([facility]) 31.3 32.0-36.5 MEAN CORPUSCULAR HGB CONC eCW1 ([facility]) 69.3 36.0-66.0 NEUTROPHILS % eCW1 ([facility]) 21.2 24.0-44.0 LYMPH % eCW1 ([facility]) 7.5 2.0-8.0 MONO % eCW1 ([facility]) 5.9 1.5-8.5 NEUTROPHILS # eCW1 ([facility]) 0.7 0.0-3.0 EOS % eCW1 ([facility]) 0.5 0.0-1.0 BASO % eCW1 ([facility]) 0.1 0.0-0.5 EOS # eCW1 ([facility]) 0.6 0.0-0.8 MONO # eCW1 ([facility]) 1.8 1.5-5.0 LYMPH # eCW1 ([facility]) 0.0 0.0-0.2 BASO # eCW1 [facility]) ID Date Data Source DIGOXIN LEVEL 04/13/2021 12:00:00 AM EDT eCW1 ([facility]) Name Value Range Interpretation Code Description Data Jeanne rce(s) Supporting Document(s) 1.0 0.5-2.0 DIGOXIN LEVEL eCW1 ([facility]) ID Date Data Source CBC - Complete Blood Count 04/13/2021 12:00:00 AM EDT eCW1 ( [facility]) Name Value Range Interpretation Code Description Data Jeanne rce(s) Supporting Document(s) 7.7 4.0-10.0 WHITE BLOOD COUNT eCW1 ([facility]) 97.6 80.0-96.0 MEAN CORPUSCULAR VOLUME e CW1 ([facility]) 4.67 4.00-5.40 RED BLOOD COUNT eCW1 ([facility]) 14.4 12.0-15.5 HEMOGLOBIN eCW1 ([facility]) 45.6 36.0-47.0 HEMATOCRIT eCW1 ([facility]) 31.6 32.0-36.5 MEAN CORPUSCULAR HGB CONC eCW1 ([facility]) 30.8 27.0-33.0 MEAN CORPUSCULAR HEMOGLOB IN eCW1 ([facility]) 12.6 11.5-14.5 RED CELL DISTRIBUTION WID TH eCW1 ([facility]) 261 150-450 PLATELET COUNT, AUTOMATED eCW1 ([facility]) ID Date Data Source VITAMIN B12 LEVEL 01/19/2021 12:00:00 AM EDT eCW1 ([facility]) Name Value Range Interpretation Code Description Data Jeanne rce(s) Supporting Document(s) 624 463-483 eCW1 [facility]) ID Date Data Source LIPID PANEL (CARDIAC RISK) 01/19/2021 12:00:00 AM EDT eCW1 ( [facility]) Name Value Range Interpretation Code Description Data Jeanne rce(s) Supporting Document(s) 205 eCW1 ([facility]) Triglyceride [Mass/volume] in Serum or Plasma by calculation 407 <150 eCW1 ([facility]) Cholesterol [Moles/volume] in Serum or Plasma 249 <200 eCW1 ([facility]) Cholesterol in HDL [Moles/volume] in Serum or Plasma 44 >40 eCW1 ([facility]) 5.659 <5 eCW1 ([facility]) ID Date Data Source FREE T4 & TSH PANEL 01/19/2021 12:00:00 AM EDT eCW1 ([facility]) Name Value Range Interpretation Code Description Data Jeanne rce(s) Supporting Document(s) 0.931 0.358-3.740 THYROID STIMULATING HORM ONE eCW1 ([facility]) 0.95 0.76-1.46 FREE T4 eCW1 ([facility]) ID Date Data Source MAGNESIUM LEVEL 01/19/2021 12:00:00 AM EDT eCW1 ([facility]) Name Value Range Interpretation Code Description Data Jeanne rce(s) Supporting Document(s) 2.2 1.8-2.4 MAGNESIUM LEVEL eCW1 ([facility]) ID Date Data Source FOLATE 01/19/2021 12:00:00 AM EDT eCW1 ([facility]) Name Value Range Interpretation Code Description Data Jeanne rce(s) Supporting Document(s) 10.7 >5.4 eCW1 ([facility]) ID Date Data Source [id number] 01/19/2021 12:00:00 AM EDT eCW1 ([facility]) Name Value Range Interpretation Code Description Data Jeanne rce(s) Supporting Document(s) Hemoglobin A1c/Hemoglobin.total in Blood 5.2 eCW1 ([facility]) ID Date Data Source [id number] 11/14/2020 12:00:00 AM EST [facility] Name Value Range Interpretation Code Description Data Jeanne rce(s) Supporting Document(s) SARS-CoV-2 (COVID-19) RNA [Presence] in Respiratory specimen by [facility] with probe detection Not Detected [facility] This lab was ordered by [facility] and reported by [employer]. ID Date Data Source [id number] 11/03/2020 04:49:41 PM EST [facility] Name Value Range Interpretation Code Description Data Jeanne rce(s) Supporting Document(s) &PDF [facility] LXSNBo6xCsWNScMx44/DLOulRNQhd5WxBEvbRKo0NOsgGETmA3PozCxlJGAFJbSKW28jZHGTVCjJVpBu yKE [file] +RSkRCVAhH6SrXdUeJJUq+S9OEXgVoxirLUkMjSMCSYNH4mWAe81Fc7zeyTybeA97bIfqaKXer1p/bottom loader [file] ICAgICAgICAgICAgICAgICAgICAgICAgICAgICAgIC AgICAgICAgICAgICAgICAgICAgICAgICAgICAgICAgDQogICAgICAgICAgICAgICAgICAgICAgICAgIC AgICAgICAgICAgICAgICAgICAgICAgICAgICAgICAgICAgICAgICAgICAgICAgICAgICAgICAgICAgIC AgICAgICAgICAgICAgDQogICAgICAgICAgICAgICAg ICAgICAgICAgICAgICAgICAgICAgICAgICAgICAgICAgICAgICAgICAgICAgICAgICAgICAgICAgICAg ICAgICAgICAgICAgICAgICAgICAgICAgDQogICAgICAgICAgICAgICAgICAgICAgICAgICAgICAgICAg ICAgICAgICAgICAgICAgICAgICAgICAgICAgICAgIC AgICAgICAgICAgICAgICAgICAgICAgICAgICAgICAgICAgDQogICAgICAgICAgICAgICAgICAgICAgIC AgICAgICAgICAgICAgICAgICAgICAgICAgICAgICAgICAgICAgICAgICAgICAgICAgICAgICAgICAgIC AgICAgICAgICAgICAgICAgDQogICAgICAgICAgICAg ICAgICAgICAgICAgICAgICAgICAgICAgICAgICAgICAgICAgICAgICAgICAgICAgICAgICAgICAgICAg ICAgICAgICAgICAgICAgICAgICAgICAgICAgDQogICAgICAgICAgICAgICAgICAgICAgICAgICAgICAg ICAgICAgICAgICAgICAgICAgICAgICAgICAgICAgIC AgICAgICAgICAgICAgICAgICAgICAgICAgICAgICAgICAgICAgDQogICAgICAgICAgICAgICAgICAgIC AgICAgICAgICAgICAgICAgICAgICAgICAgICAgICAgICAgICAgICAgICAgICAgICAgICAgICAgICAgIC AgICAgICAgICAgICAgICAgICAgDQogICAgICAgICAg ICAgICAgICAgICAgICAgICAgICAgICAgICAgICAgICAgICAgICAgICAgICAgICAgICAgICAgICAgICAg ICAgICAgICAgICAgICAgICAgICAgICAgICAgICAgDQogICAgICAgICAgICAgICAgICAgICAgICAgICAg ICAgICAgICAgICAgICAgICAgICAgICAgICAgICAgIC OvZMQoOTQwNKXgXFYgXBSoBVHkBZPkIKOaPHWgBXSjOYZxPCDuQZPdZFy1V1fqFHOeSOBgSD3mROn3Gn 8+XAxMTaKoYOS9jeBzlF1CPI3kh8JcIZayLRJjm6OeVNl1DI6YGTFsIMjwOF0DAMdqqi9AHPBtLQYrlC ADp9egAkNbPIM5RPUyOdlhOT5GUTGoW4gisaFbNKTa UGWRZH5KFzGcQ5LpaB14GJBOFt9+RJymmaTiTqfQUfC0LVGhc6JkUXa9WD5HOTQrIZasRX2TAQMfoY1x DCqwXH6JLxIhSmWoAJKOAsTdJ04rcEDeCGz7V8SbEuEhTTKdPzegKRGtCBqpYqAxQGNqAbNqEVoqNX8+ ID4+ACnoZC2AFNztcsPtRFBsJu5YUIBiZXG7FFXmrS RhHIpqGZJDWWopHH8DtOWpCJI4xA2dGYrhCDUrRDIqH7jAZcLshCvyWK45wGbxsqXaeDDwDNl+Pg0KZW 0xs2RaQRl2rrKdEKtoLAKuAYuaQPYsRKNzGMBoYDV6KSI5TUYXLtRnANXuESCfCCirSWGuGIEfql9PXG AcFFRtLHh8QERbIOSsQTVfSHlvDNZsUYT6JGH5NFLd XLAbCZ6ESlGsCBNsFKSuDCRqLLQoBGMhkg2NKFTlCBZfToj1YlFaOMJvMDLgQZfgBPHfZHRmFJPiUJRz BZHuEW4DVcUxJFFcUCW4UnCvOXJoWDEmjw8FBGQfVJRcYUM5BxEsBVMkJCQfEWrsHCZwFDZ6MjD6GUDj QMHcVC4OZmQkHLGnZOTmMFJgVHAqVMXcuy5AFQYsAY UhEMT6TyVlQJDcWIBgDOmeFCRuWXG2XolbVYHzQTLlHX7AUfWbGDUpZTX6FWOtJFTgLTUdri6KVZLlFL UfMak4FfWqISCoFJQlRLkfECTwKEY8HID4ATBeGHIeCI4XQvIjUWSgWBU6QOaeFGGcBOLryj7CHOAcHS WcWQbeHeGpXCTfCXSiVXmbSERcAXX4TTP9VVRxRLLc DE4HTcVzIRXbSOg5ZQVuELCgFTGmar9BoXLfbLpigq8NNLwQFr9PxMimOQJqAKncZu6vhFPvOOVlOWQK Yu9NrcViLOVsFIKYJChiHMEmEXHhHmDlNoN0YkIiRxX2SwRlQMo6BIOnSDYrHFU2ULN2KvT1WhSoMSKn BPttPbPsXXY1RmV6QZbdQsRxLqG7BrZ9LTF+IF0g DQo+Wg5Vy0GmbdR6wwAvFBwfCqz3Cf8YNLQDA1WUCd== Procedure Social History Code Duration Value Status Description Data Source(s ) Smoking 08/16/2021 12:00:00 AM EDT Never Smoker completed Never S moker eCW1 ([facility]) Smoking 07/07/2021 11:45:27 AM EDT Never smoked tobacco (findi ng) completed Never smoked tobacco (finding) [facility] (Ladarius Ag MD [facility]) Smoking 05/29/2021 12:00:00 AM EDT Never Smoker completed Never S moker eCW1 ([facility]) Smoking 05/29/2021 12:00:00 AM EDT Never Smoker completed Never S moker eCW1 ([facility]) Smoking 05/29/2021 12:00:00 AM EDT Never Smoker completed Never S moker eCW1 ([facility]) Smoking 05/01/2021 12:00:00 AM EDT Never Smoker completed Never S moker eCW1 ([facility]) Smoking 05/01/2021 12:00:00 AM EDT Never Smoker completed Never S moker eCW1 ([facility]) Smoking 05/01/2021 12:00:00 AM EDT Never Smoker completed Never S moker eCW1 ([facility]) Smoking 04/21/2021 12:00:00 AM EDT Patient has never smoked co mpleted Patient has never smoked [facility] ([facility], [facility]) Smoking 04/13/2021 12:00:00 AM EDT Never Smoker completed Never S moker eCW1 ([facility]) Smoking 04/13/2021 12:00:00 AM EDT Never Smoker completed Never S moker eCW1 ([facility]) Smoking 01/19/2021 12:00:00 AM EDT Never Smoker completed Never S moker eCW1 ([facility]) Smoking 01/19/2021 12:00:00 AM EDT Never Smoker completed Never S moker eCW1 ([facility]) Alcohol intake 11/02/2020 12:00:00 AM EST Current drinker of al cohol (finding) completed Current drinker of alcohol (finding) [facility] Smoking 11/02/2020 12:00:00 AM EST Never smoker completed Never s moker [facility] Smoking 09/29/2020 12:00:00 AM EST Never Smoker completed Never S moker eCW1 ([facility]) Smoking 09/29/2020 12:00:00 AM EST Never Smoker completed Never S moker eCW1 ([facility]) Smoking 08/25/2020 12:00:00 AM EDT Never Smoker completed Never S moker eCW1 ([facility]) Smoking 08/25/2020 12:00:00 AM EDT Never Smoker completed Never S moker eCW1 ([facility]) Smoking 08/25/2020 12:00:00 AM EDT Never Smoker completed Never S moker eCW1 ([facility]) Vital Signs ID Date Data Source UNK Name Value Range Interpretation Code Description Data Source(s) Body weight 115.2 [lb_av] 115.2 [lb_av] eCW1 ([facility]) Body height 60 [in_i] 60 [in_i] eCW1 ([facility]) Body mass index (BMI) [Ratio] 22.50 kg/m2 22.50 kg/m2 eCW1 ([facility]) Heart rate 77 /min 77 /min eCW1 ([facility]) Respiratory rate 18 /min 18 /min eCW1 ([facility]) Body temperature 98.2 [degF] 98.2 [degF] eCW1 ( [facility]) Systolic blood pressure 122 mm[Hg] 122 mm[Hg] e CW1 ([facility]) Diastolic blood pressure 80 mm[Hg] 80 mm[Hg] eCW1 ([facility]) Body weight 114 [lb_av] 114 [lb_av] eCW1 ([facility]) Body weight 51.71 kg 51.71 kg eCW1 ([facility]) Body height 60 [in_i] 60 [in_i] eCW1 ([facility]) Body mass index (BMI) [Ratio] 22.26 kg/m2 22.26 kg/m2 eCW1 ([facility]) Systolic blood pressure 130 mm[Hg] 130 mm[Hg] e CW1 ([facility]) Diastolic blood pressure 80 mm[Hg] 80 mm[Hg] eCW1 ([facility]) Body weight 112 [lb_av] 112 [lb_av] eCW1 ([facility]) Body height 60 [in_i] 60 [in_i] eCW1 ([facility]) Body mass index (BMI) [Ratio] 21.87 kg/m2 21.87 kg/m2 eCW1 ([facility]) Heart rate 70 /min 70 /min eCW1 ([facility]) Respiratory rate 18 /min 18 /min eCW1 ([facility]) Body temperature 96.6 [degF] 96.6 [degF] eCW1 ( [facility]) Systolic blood pressure 128 mm[Hg] 128 mm[Hg] e CW1 ([facility]) Diastolic blood pressure 78 mm[Hg] 78 mm[Hg] eCW1 ([facility]) Systolic blood pressure 136 mm[Hg] 136 mm[Hg] [facility] Diastolic blood pressure 83 mm[Hg] 83 mm[Hg] [facility] Heart rate 66 /min 66 /min [facility] Body height 149.9 cm 149.9 cm [facility] Body weight 50.349 kg 50.349 kg [facility] Body mass index (BMI) [Ratio] 22.42 kg/m2 22.42 kg/m2 [facility] Oxygen saturation in Arterial blood by Pulse oximetry 98 % 98 % [facility] Body weight 113.4 [lb_av] 113.4 [lb_av] eCW1 ([facility]) Body height 60 [in_i] 60 [in_i] eCW1 ([facility]) Body mass index (BMI) [Ratio] 22.14 kg/m2 22.14 kg/m2 W1 ([facility]) Heart rate 74 /min 74 /min eCW1 ([facility]) Respiratory rate 18 /min 18 /min eCW1 ([facility]) Body temperature 98.3 [degF] 98.3 [degF] eCW1 ( [facility]) Systolic blood pressure 122 mm[Hg] 122 mm[Hg] e CW1 ([facility]) Diastolic blood pressure 80 mm[Hg] 80 mm[Hg] eCW1 ([facility]) Oxygen saturation in Arterial blood by Pulse oximetry 97 % 97 % MEDENT ([facility] [place], [facility]) Body mass index (BMI) [Ratio] 23.4 kg/m2 23.4 k g/m2 MEDENT ([facility] [place], [facility]) Body temperature 97.1 [degF] 97.1 [degF] MEDENT ([facility], [facility]) Body weight 116.00 [lb_av] 116.00 [lb_av] MEDEN T ([facility], [facility]) Body height 59 [in_i] 59 [in_i] MEDENT ([facility] [place], [facility]) 4'11" Systolic blood pressure 148 mm[Hg] 148 mm[Hg] M EDENT ([facility] [place], [facility]) Diastolic blood pressure 89 mm[Hg] 89 mm[Hg] MEDENT ([facility], [facility]) Heart rate 71 /min 71 /min MEDENT ([facility], [facility]) Respiratory rate 13 /min 13 /min MEDENT ( [facility] [place], [facility]) Body weight 115 [lb_av] 115 [lb_av] eCW1 ([facility]) Body height 60 [in_i] 60 [in_i] eCW1 ([facility]) Body mass index (BMI) [Ratio] 22.46 kg/m2 22.46 kg/m2 eCW1 ([facility]) Heart rate 77 /min 77 /min eCW1 ([facility]) Respiratory rate 18 /min 18 /min eCW1 ([facility]) Body temperature 97.4 [degF] 97.4 [degF] eCW1 ( [facility]) Systolic blood pressure 122 mm[Hg] 122 mm[Hg] e CW1 ([facility]) Diastolic blood pressure 60 mm[Hg] 60 mm[Hg] eCW1 ([facility]) Body weight 116 [lb_av] 116 [lb_av] eCW1 ([facility]) Body height 60 [in_i] 60 [in_i] eCW1 ([facility]) Body mass index (BMI) [Ratio] 22.65 kg/m2 22.65 kg/m2 eCW1 ([facility]) Heart rate 72 /min 72 /min eCW1 ([facility]) Respiratory rate 18 /min 18 /min eCW1 ([facility]) Body temperature 97.4 [degF] 97.4 [degF] eCW1 ( [facility]) Systolic blood pressure 124 mm[Hg] 124 mm[Hg] e CW1 ([facility]) Diastolic blood pressure 70 mm[Hg] 70 mm[Hg] eCW1 ([facility]) Systolic blood pressure 142 mm[Hg] 142 mm[Hg] [facility] Diastolic blood pressure 70 mm[Hg] 70 mm[Hg] [facility] Heart rate 70 /min 70 /min [facility] Body height 149.9 cm 149.9 cm [facility] Body weight 53.071 kg 53.071 kg [facility] Body mass index (BMI) [Ratio] 23.63 kg/m2 23.63 kg/m2 [facility] Oxygen saturation in Arterial blood by Pulse oximetry 98 % 98 % [facility] Body weight 118 [lb_av] 118 [lb_av] eCW1 ([facility]) Body height 60 [in_i] 60 [in_i] eCW1 ([facility]) Body mass index (BMI) [Ratio] 23.04 kg/m2 23.04 kg/m2 W1 ([facility]) Systolic blood pressure 132 mm[Hg] 132 mm[Hg] e CW1 ([facility]) Diastolic blood pressure 84 mm[Hg] 84 mm[Hg] eCW1 ([facility]) Body weight 118 [lb_av] 118 [lb_av] eCW1 ([facility]) Body height 60 [in_i] 60 [in_i] eCW1 ([facility]) Body mass index (BMI) [Ratio] 23.04 kg/m2 23.04 kg/m2 eCW1 ([facility]) Heart rate 75 /min 75 /min eCW1 ([facility]) Respiratory rate 18 /min 18 /min eCW1 ([facility]) Body temperature 97.0 [degF] 97.0 [degF] eCW1 ( [facility]) Systolic blood pressure 124 mm[Hg] 124 mm[Hg] e CW1 ([facility]) Diastolic blood pressure 68 mm[Hg] 68 mm[Hg] eCW1 ([facility]) Patient Treatment Plan of Care Planned Activity Planned Date Details Description Data Source (s) Amoxicillin 875 MG / Clavulanate 125 MG Oral Tablet 05/29/20 21 12:00:00 AM EDT eCW1 (Formerly [facility]) Amoxicillin 875 MG / Clavulanate 125 MG Oral Tablet 05/29/20 21 12:00:00 AM EDT eCW1 ([facility]) Amoxicillin 875 MG / Clavulanate 125 MG Oral Tablet 05/29/20 21 12:00:00 AM EDT eCW1 ([facility]) Ketoconazole 20 MG/ML Medicated Shampoo 09/29/2020 12:00:00 AM EST eCW1 ([facility]) Clobetasol Propionate 0.5 MG/ML Topical Solution 09/29/2020 12:00:0 0 AM EST eCW1 ([facility]) Fluocinonide 0.5 MG/ML Topical Solution 09/29/2020 12:00:00 AM EST eCW1 ([facility]) Ketoconazole 20 MG/ML Medicated Shampoo 09/29/2020 12:00:00 AM EST eCW1 ([facility]) Clobetasol Propionate 0.5 MG/ML Topical Solution 09/29/2020 12:00:0 0 AM EST eCW1 ([facility]) Fluocinonide 0.5 MG/ML Topical Solution 09/29/2020 12:00:00 AM EST eCW1 ([facility])
--- OUTSIDE RECORDS SUMMARY | 2021-08-27 16:28 | CCD ---
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 Name Role Phone Cristiana Ag, Jhoana Durand [...] Ancelmo, Jhoana Durand MD, FACS Unavailable Unavailable Cristiana Ag, Jhoana Durand MD, FACS Unavailable Unavailable Cristiana Ag, Jhoana Durand MD, FACS Unavailable [...] Durand MD, FACS Unavailable Unavailable Zendejas Ag, Jhaona Durand MD, FACS Unavailable Unavailable Zendejas Ag, Jhoana Durand MD, FACS Unavailable Unavailable Zendejas Ag, Jhoana Durand MD, FACS Unavailable Unavailable Zendejas Ag, Jhoana Durand MD, FACS Unavailable Unavailable Zendejas Ag, Jhoana Durand MD, FACS Unavailable Unavailable Fons, M Poly MACHINE HAMPER MAKER Unavailable Unavailable Fons, M Poly MACHINE HAMPER MAKER Unavailable Unavailable Fons, M Poly MACHINE HAMPER MAKER Unavailable Unavailable Fons, M Poly MACHINE HAMPER MAKER Unavailable Unavailable Fons, M Poly MACHINE HAMPER MAKER Unavailable Unavailable Fons, M Poly MACHINE HAMPER MAKER Unavailable Unavailable Fons, M Poly MACHINE HAMPER MAKER Unavailable Unavailable Fons, M Poly MACHINE HAMPER MAKER Unavailable Unavailable Fons, M Poly MACHINE HAMPER MAKER Unavailable Unavailable Fons, M Poly MACHINE HAMPER MAKER Unavailable Unavailable Fons, M Poly MACHINE HAMPER MAKER Unavailable Unavailable Fons, M Poly MACHINE HAMPER MAKER Unavailable Unavailable Fons, M Poly MACHINE HAMPER MAKER Unavailable Unavailable Fons, M Poly MACHINE HAMPER MAKER Unavailable Unavailable Fons, M Poly MACHINE HAMPER MAKER Unavailable Unavailable Fons, M Poly MACHINE HAMPER MAKER Unavailable Unavailable Fons, M Poly MACHINE HAMPER MAKER Unavailable Unavailable Fons, M Poly MACHINE HAMPER MAKER Unavailable Unavailable Fons, M Poly MACHINE HAMPER MAKER Unavailable Unavailable Fons, M Poly MACHINE HAMPER MAKER Unavailable Unavailable Fons, M Poly MACHINE HAMPER MAKER Unavailable Unavailable Fons, M Poly MACHINE HAMPER MAKER Unavailable Unavailable Fons, M Poly MACHINE HAMPER MAKER Unavailable Unavailable Fons, M Poly MACHINE HAMPER MAKER Unavailable Unavailable Fons, M Poly MACHINE HAMPER MAKER Unavailable Unavailable Fons, M Poly MACHINE HAMPER MAKER Unavailable Unavailable Fons, M Poly MACHINE HAMPER MAKER Unavailable Unavailable Fons, M Poly MACHINE HAMPER MAKER Unavailable Unavailable Fons, M Poly MACHINE HAMPER MAKER Unavailable Unavailable Fons, M Poly MACHINE HAMPER MAKER Unavailable Unavailable Fons, M Poly MACHINE HAMPER MAKER Unavailable Unavailable Fons, M Poly MACHINE HAMPER MAKER Unavailable Unavailable Fons, M Poly MACHINE HAMPER MAKER Unavailable Unavailable Fons, M Poly MACHINE HAMPER MAKER Unavailable Unavailable Fons, M Poly MACHINE HAMPER MAKER Unavailable Unavailable Fons, M Poly MACHINE HAMPER MAKER Unavailable Unavailable Fons, M Poly MACHINE HAMPER MAKER Unavailable Unavailable Fons, M Poly MACHINE HAMPER MAKER Unavailable Unavailable Fons, M Poly MACHINE HAMPER MAKER Unavailable Unavailable Fons, M Poly MACHINE HAMPER MAKER Unavailable Unavailable Fons, M Poly MACHINE HAMPER MAKER Unavailable Unavailable Fons, M Poly MACHINE HAMPER MAKER Unavailable Unavailable Fons, M Poly MACHINE HAMPER MAKER Unavailable Unavailable Fons, M Poly MACHINE HAMPER MAKER Unavailable Unavailable Fons, M Poly MACHINE HAMPER MAKER Unavailable Unavailable Fons, M Poly MACHINE HAMPER MAKER Unavailable Unavailable Fons, M Poly MACHINE HAMPER MAKER Unavailable Unavailable Fons, M Poly MACHINE HAMPER MAKER Unavailable Unavailable Fons, M Poly MACHINE HAMPER MAKER Unavailable Unavailable Fons, M Poly MACHINE HAMPER MAKER Unavailable Unavailable Fons, M Poly MACHINE HAMPER MAKER Unavailable Unavailable Fons, M Poly MACHINE HAMPER MAKER Unavailable Unavailable Fons, M Poly MACHINE HAMPER MAKER Unavailable Unavailable [place], V HERNANDEZ PA-C Unavailable Unavailable Adriana, V HERNANDEZ PA-C Unavailable Unavailable [place], V HERNANDEZ PA-C Unavailable Unavailable [place], V HERNANDEZ PA-C Unavailable Unavailable Adriana, V HERNANDEZ PA-C Unavailable Unavailable Adriana, V HERNANDEZ PA-C Unavailable Unavailable Adriana, V HERNANDEZ PA-C Unavailable Unavailable [place], V HERNANDEZ PA-C Unavailable Unavailable Adriana, V HERNANDEZ PA-C Unavailable Unavailable Adriana, V HERNANDEZ PA-C Unavailable Unavailable [place], V HERNANDEZ PA-C Unavailable Unavailable [place], V HERNANDEZ PA-C Unavailable Unavailable Adriana, V HERNANDEZ PA-C Unavailable Unavailable Adriana, V HERNANDEZ PA-C Unavailable Unavailable RING, K [...] Unavailable Unavailable Jeannette Bush MD Unavailable Unavailable SleJeannette alex MD Unavailable Unavailable SleJeannette alex MD Unavailable Unavailable Jeannette Bush MD Unavailable Unavailable Jeannette Bush MD Unavailable Unavailable Jeannette Bush MD Unavailable Unavailable Jeannette Bush MD Unavailable Unavailable Jeannette Bush MD Unavailable Unavailable Jeannette Bush MD Unavailable Unavailable SleJeannette alex MD Unavailable Unavailable Jeannette Bush MD Unavailable [...] is protected by Article 27-F of the [facility] Public Health law. If you continue you may have access to information: Regarding HIV / AIDS; Provided by facilities licensed or operated by the [facility] Office of Mental Health; or Provided by the [facility] Office for People With Developmental Disabilities. If such information is present, then the following [facility] mandated warning applies: This information has been [...] law may result in a fine or nursing home sentence or both. A general authorization for the release of medical or other information is NOT sufficient authorization for further disc losure. Allergies and Adverse Reactions Type Description Substance Reaction Status Data Source(s ) Allergy to substance No Known Allergies No known allergies (situation ) ARMIN (Ladarius Ag MD [facility]) Family History Family Member Name Family Member Gender Family Member Status Date o f Status Description Data Source(s) Unknown Unknown Problem MEDENT ([facility]) Unknown Unknown Problem [facility] ([facility]) Unknown Male Problem MEDENT ([facility]) Unknown Unknown Problem MEDENT ([facility], [facility]) mother Encounters Encounter Providers Location Date Indications Data Source(s ) Office Visit, Est Pt., Level 4 PC [address] [place] [address] 08/16/2021 12:00:00 AM EDT eCW1 (Critical access hospital) Unknown [address] [facility] [address] 07/23/2021 12:00:00 AM EDT eCW1 ([facility]) ( [facility]) [facility] CASE MANAGER Pt [address] [place] [address] 05/29/2021 12:00:00 AM EDT eCW1 ([facility]) Outpatient [address] [facility] [address] 05/17/2021 12:00:00 AM EDT eCW1 ([facility]) Outpatient SCOT 05/10/2021 01:00:15 PM EDT [facility] Outpatient Attender: Poly Murphy FNPAttender: HERNANDEZ CALDERON-SJRichard.MALLORY 05/10/2021 12:00:00 AM EDT - 05/10/2021 11:54:47 AM EDT [facility] Outpatient Referrer: Jeannette MALIKSJRichard.MALLORY 04/26 12:00:00 AM EDT [facility] Unknown [address] [facility] [address] 05/02/2021 12:00:00 AM EDT eCW1 ([facility]) Unknown [address] [facility] [address] 05/02/2021 12:00:00 AM EDT eCW1 ([facility]) [place] [address] [facility] [address] 05/01/2021 12:00:00 AM EDT eCW1 ([facility]) Outpatient Attender: HAI Bearden 04/21/2021 11:25:00 AM EDT MEDENT ([facility]) [place] [address] [facility] [address] 04/13/2021 12:00:00 AM EDT eCW1 ([facility]) [place] [address] [facility] [address] 04/13/2021 12:00:00 AM EDT eCW1 ([facility]) Unknown [address] [facility] [address] 02/13/2021 12:00:00 AM EDT eCW1 ([facility]) [place] [address] [facility] [address] 01/19/2021 12:00:00 AM EDT eCW1 ([facility]) Outpatient<td ID="encounterTypeDescripti onID0">1 Year Follow-Up</td><td>Ladarius Branham MD, FACS</td><td>Ladarius Branham MD [facility]</td><td>12/18/2020</td><td>1:47PM</td><td>2:33PM</td><td><content ID="encounterDiagnosisID0-0">Pseudophakic - Both Eyes</content>, <content ID="encounterDiagnosisID0-1">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</content>, <content ID="encounterDiagnosisID0-2">Dry Eye Syndrome Both Eyes</content>, <content ID="encounterDiagnosisID0-3">Vitreous Disorders Degeneration</content></td> Attender: Ladarius Ag MD, FACS Ladarius Branham MD [facility] 12/18/2020 01:47:00 PM EST - 12/18/2020 02:33:00 PM ES T Vitreous Disorders DegenerationDry Eye Syndrome Both Eyes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Pseudophakic - Both Eyes ARMIN (Ladarius Ag MD [facility]) 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 Posterior Capsule Opacification Eccentri c Capsule Both Eyes Pseudophakic - Both Eyes Outpatient SJP.MALLORY-SJP 11/03/2020 04:52:17 PM EST [facility] Outpatient Attender: HERNANDEZ CHEEMA.MALLORY-SJP.MALLORY 04/2021 12:00:00 AM EST - 11/02/2020 11:53:26 AM EST [facility] Outpatient Referrer: Jeannette PEACOCKMALLORY-SJP.MALLORY 04/2021 12:00:00 AM EST [facility] [place] [address] [facility] [address] 10/26/2020 12:00:00 AM EST eCW1 ([facility]) [place] [address] [facility] [address] 09/29/2020 12:00:00 AM EST eCW1 ([facility]) Unknown [address] [facility] [address] 09/15/2020 12:00:00 AM EST eCW1 ([facility]) Out[place] [address] [facility] [address] 08/25/2020 12:00:00 AM EDT eCW1 ([facility]) Immunizations Vaccine Date Status Description Data Source(s) COVID-19 VACCINE Moderna 01/03/2021 12:00:00 AM EST completed [facility] Vaccine Series Complete: YESThis Data wa s Submitted to [facility] Via [employer] COVID-19 VACCINE, MRNA-1273, LNP-S (MODERNA)/PF 01/03/2021 1 2:00:00 AM EST completed [facility] COVID-19 VACCINE Moderna 12/01/2020 12:00:00 AM EST completed [facility] Vaccine Series Complete: NOThis Data was Submitted to [facility] [employer] COVID-19 VACCINE, MRNA-1273, LNP-S (MODERNA)/PF 12/01/2020 1 2:00:00 AM EST completed [facility] influenza, recombinant, quadrIvalent,injectable, prese rvative free 08/25/2020 04:56:00 PM EDT completed eCW1 ([facility]) influenza, recombinant, quadrIvalent,injectable, prese rvative free 08/25/2020 04:56:00 PM EDT completed eCW1 ([facility]) influenza, recombinant, quadrIvalent,injectable, prese rvative free 08/25/2020 04:56:00 PM EDT completed eCW1 ([facility]) influenza, recombinant, quadrIvalent,injectable, prese rvative free 08/25/2020 04:56:00 PM EDT completed eCW1 ([facility]) influenza, recombinant, quadrIvalent,injectable, prese rvative free 08/25/2020 04:56:00 PM EDT completed eCW1 ([facility]) influenza, recombinant, quadrIvalent,injectable, prese rvative free 08/25/2020 04:56:00 PM EDT completed eCW1 ([facility]) influenza, recombinant, quadrIvalent,injectable, prese rvative free 08/25/2020 04:56:00 PM EDT completed eCW1 ([facility]) influenza, recombinant, quadrIvalent,injectable, prese rvative free 08/25/2020 04:56:00 PM EDT completed eCW1 ([facility]) influenza, recombinant, quadrIvalent,injectable, prese rvative free 08/25/2020 04:56:00 PM EDT completed eCW1 ([facility]) influenza, recombinant, quadrIvalent,injectable, prese rvative free 08/25/2020 04:56:00 PM EDT completed eCW1 ([facility]) influenza, recombinant, quadrIvalent,injectable, prese rvative free 08/25/2020 04:56:00 PM EDT completed eCW1 ([facility]) influenza, recombinant, quadrIvalent,injectable, prese rvative free 08/25/2020 04:56:00 PM EDT completed eCW1 ([facility]) influenza, recombinant, quadrIvalent,injectable, prese rvative free 08/25/2020 04:56:00 PM EDT completed eCW1 ([facility]) influenza, recombinant, quadrIvalent,injectable, prese rvative free 08/25/2020 04:56:00 PM EDT completed eCW1 ([facility]) influenza, recombinant, quadrIvalent,injectable, prese rvative free 08/25/2020 04:56:00 PM EDT completed eCW1 ([facility]) influenza, recombinant, quadrIvalent,injectable, prese rvative free 08/25/2020 04:56:00 PM EDT completed eCW1 ([facility]) Medications Medication Brand Name Start Date Product Form Dose Route Admi nistrative Instructions Pharmacy Instructions Status Indications Reaction Description Data Source(s) Amoxicillin 875 MG / Clavulanate 125 MG Oral Tablet Amoxicillin-Pot Clavulanate 875-125 MG Amoxicillin-Pot Clavulanate 875-125 MG 05/29/2021 12:00:00 AM ED T 1.0 {tablet} active Amoxicillin-Pot Cla vulanate 875-125 MG eCW1 ([facility]) Amoxicillin 875 MG / Clavulanate 125 MG Oral Tablet Amoxicillin-Pot Clavulanate 875-125 MG Amoxicillin-Pot Clavulanate 875-125 MG 05/29/2021 12:00:00 AM ED T 1.0 {tablet} active Amoxicillin-Pot Cla vulanate 875-125 MG eCW1 ([facility]) Amoxicillin 875 MG / Clavulanate 125 MG Oral Tablet Amoxicillin-Pot Clavulanate 875-125 MG Amoxicillin-Pot Clavulanate 875-125 MG 05/29/2021 12:00:00 AM ED T 1.0 {tablet} active Amoxicillin-Pot Cla vulanate 875-125 MG eCW1 ([facility]) Cephalexin 500 MG Oral Tablet Cephalexin 04/21/2021 12:00:00 AM EDT ORAL active MEDENT ([facility]) Cephalexin 500 MG Oral Capsule CEPHALEXIN 04/21/2021 [...] ion} active Clobetasol Propionate 0.05 % eCW1 ([facility]) Fluocinonide 0.5 MG/ML Topical Solution Fluocinonide 0.05 % Fluocinonide 0.05 % 09/29/2020 12:00:00 AM EST 1.0 {application} act pretty Fluocinonide 0.05 % eCW1 ([facility]) Ketoconazole 20 MG/ML Medicated Shampoo Ketoconazole 2 % Ket oconazole 2 % 09/29/2020 12:00:00 AM EST 5.0 {ml} suspended Ketoconazole 2 % eCW1 ([facility]) Fluocinonide 0.5 MG/ML Topical Solution Fluocinonide 0.05 % Fluocinonide 0.05 % 09/29/2020 12:00:00 AM EST 1.0 {application} act pretty Fluocinonide 0.05 % eCW1 ([facility]) Ketoconazole 20 MG/ML Medicated Shampoo Ketoconazole 2 % Ket oconazole 2 % 09/29/2020 12:00:00 AM EST 5.0 {ml} active Ketoconazole 2 % eCW1 ([facility]) Clobetasol Propionate 0.5 MG/ML Topical Solution Clobe tasol Propionate 0.05 % Clobetasol Propionate 0.05 % 09/29/2020 12:00:00 AM EST 1.0 {applicat ion} active Clobetasol Propionate 0.05 % eCW1 ([facility]) Fluocinonide 0.5 MG/ML Topical Solution Fluocinonide 0.05 % Fluocinonide 0.05 % 09/29/2020 12:00:00 AM EST 1.0 {application} seema pended Fluocinonide 0.05 % eCW1 ([facility]) Clobetasol Propionate 0.5 MG/ML Topical Solution Clobe tasol Propionate 0.05 % Clobetasol Propionate 0.05 % 09/29/2020 12:00:00 AM EST 1.0 {applicat ion} active Clobetasol Propionate 0.05 % eCW1 ([facility]) Fluocinonide 0.5 MG/ML Topical Solution Fluocinonide 0.05 % Fluocinonide 0.05 % 09/29/2020 12:00:00 AM EST 1.0 {application} seema pended Fluocinonide 0.05 % eCW1 ([facility]) Ketoconazole 20 MG/ML Medicated Shampoo Ketoconazole 2 % Ket oconazole 2 % 09/29/2020 12:00:00 AM EST 5.0 {ml} active Ketoconazole 2 % eCW1 ([facility]) Clobetasol Propionate 0.5 MG/ML Topical Solution Clobe tasol Propionate 0.05 % Clobetasol Propionate 0.05 % 09/29/2020 12:00:00 AM EST 1.0 {applicat ion} suspended Clobetasol Propionate 0.05 % eCW1 ([facility]) Fluocinonide 0.5 MG/ML Topical Solution Fluocinonide 0.05 % Fluocinonide 0.05 % 09/29/2020 12:00:00 AM EST 1.0 {application} act pretty Fluocinonide 0.05 % eCW1 ([facility]) Ketoconazole 20 MG/ML Medicated Shampoo Ketoconazole 2 % Ket oconazole 2 % 09/29/2020 12:00:00 AM EST 5.0 {ml} active Ketoconazole 2 % eCW1 ([facility]) Clobetasol Propionate 0.5 MG/ML Topical Solution Clobe tasol Propionate 0.05 % Clobetasol Propionate 0.05 % 09/29/2020 12:00:00 AM EST 1.0 {applicat ion} active Clobetasol Propionate 0.05 % eCW1 ([facility]) Ketoconazole 20 MG/ML Medicated Shampoo Ketoconazole 2 % Ket oconazole 2 % 09/29/2020 12:00:00 AM EST 5.0 {ml} active Ketoconazole 2 % eCW1 ([facility]) Ketoconazole 20 MG/ML Medicated Shampoo Ketoconazole 2 % Ket oconazole 2 % 09/29/2020 12:00:00 AM EST 5.0 {ml} suspended Ketoconazole 2 % eCW1 ([facility]) Fluocinonide 0.5 MG/ML Topical Solution Fluocinonide 0.05 % Fluocinonide 0.05 % 09/29/2020 12:00:00 AM EST 1.0 {application} act pretty Fluocinonide 0.05 % eCW1 ([facility]) Clobetasol Propionate 0.5 MG/ML Topical Solution Clobe tasol Propionate 0.05 % Clobetasol Propionate 0.05 % 09/29/2020 12:00:00 AM EST 1.0 {applicat ion} suspended Clobetasol Propionate 0.05 % eCW1 ([facility]) Insurance Providers Payer name Policy type / Coverage type Policy ID Covered democrat ID Covered democrat's relationship to lundberg Policy [place] Plan Information Medicare (Part B) Medicare Primary [id number] Self 0 [id number] MEDICARE [id number] Suha [id number] MEDICARE [id number] xxxxxxxxxxx [id number] [place] Medicare Primary [id number] Self 05 [id number] MEDICARE [id number] Suha [id number] A Medicare [place] Medicare Primary [id number] Self 05 [id number] [facility]na [facility]pr[facility] [id number] 229.0 Self [id number] Aetna (pr) Medigap Part B [id number] 229.0 Self [id number] Aetna (pr) Medigap Part B [id number] 229.0 Self [id number] Aetna (pr) Medigap Part B [id number] 229.0 Self [id number] Aetna (pr) Medigap Part B [id number] 229.0 Self [id number] Aetna (pr) Medigap Part B [id number] 229.0 Self [id number] Aetna (pr) Medigap Part B [id number] 229.0 Self [id number] Aetna (pr) Medigap Part B [id number] 229.0 Self [id number] [place] MED[place] [id number] xxxxxxxxxxx [id number] [place] MED[place]ID [id number] Suha 7 [id number] MEDICAID [id number] xxxxxxxx [id number] MEDICAID [id number] Suha [id number] COMMERCIAL GENERIC [id number] xxxxxxxx [id number] COMMERCIAL GENERIC [id number] Suha [id number] [facility]-Medicare Part B [id number] [facility]-Medicare Part B [id number] [facility] [id number] ANSI-Medicare Part B [id number] ANSI-Medicare Part B [id number] ANSI-Medicare Part B [id number] ANSI-Medicare Part B [id number] Medicare Dme Supplies Medigap Part B [id number] Self 05 [id number] Medicare Dme Supplies Medigap Part B [id number] Self 05 [id number] Medicare Dme Supplies Medigap Part B [id number] Self 05 [id number] [place] Medicare Primary [id number] Self 05 [id number] Medicare Dme Supplies Medigap Part B [id number] Self 05 [id number] [place] Medicare Primary [id number] Self 05 [id number] MEDICARE C [id number] S [id number] A Medicare Dme Supplies Medigap Part B [id number] Self 05 [id number] Medicare [place] Medicare Primary [id number] Self 05 [id number] Medicare Dme Supplies Medigap Part B [id number] Self 05 [id number] [place] Medicare Primary [id number] Self 05 [id number] Medicare Dme Supplies Medigap Part B [id number] Self 05 [id number] Medicare [place] Medicare Primary [id number] Self 05 [id number] Medicare Dme Supplies Medigap Part B [id number] Self 05 [id number] [place] Medicare Primary [id number] Self 05 [id number] Medicare Natl Gov't Servi Medicare Primary [id number] Self 0 [id number] Medicare Natl Gov't Servi [place] [id number] Self [place] [id number] SP [id number] MEDICARE [id number] SP [id number] Medicare Part B [facility] Other 0 [id number] Self 0 [place] [id number] SP [id number] SELF PAY ONLY [id number] SP [id number] MEDICARE [id number] SP [id number] A Medicare Part B [facility] Other 0 [id number] Self 0 ANSI-Medicare Part B [id number] ANSI-Medicare Part B [id number] ANSI-Medicare Part B [id number] ANSI-Medicare Part B [id number] ANSI-Medicare Part B [id number] ANSI-Medicare Part B [id number] ANSI-Medicare Part B [id number] ANSI-Medicare Part B [id number] ANSI-Medicare Part B [id number] Medicare [place]/NGS Medicare Primary [id number] Self [id number] ANSI-Medicare Part B [id number] [facility]-Medicare Part B [id number] Problems, Conditions, and Diagnoses Code Display Name Description Problem Type Effective Dates Data Source(s) I48.0 Paroxysmal atrial fibrillation Paroxysmal atrial fibri llation Diagnosis 05/10/2021 10:55:42 AM EDT [facility] I34.0 Nonrheumatic mitral (valve) insufficienc y Nonrheumatic mitral (valve) insufficienc Diagnosis 05/10/2021 10:55:42 AM EDT [facility] I10 Essential (primary) hypertension Essential (primary) h ypertension Diagnosis 05/10/2021 10:55:42 AM EDT [facility] E78.5 Hyperlipidemia, unspecified Hyperlipidemia, unspecifie d Diagnosis 05/10/2021 10:55:42 AM EDT [facility] I25.10 Atherosclerotic heart diseas e of [place] coronary artery without angina pectoris Atherosclerotic heart disease of [place] Diagnosis 05/10/2021 10:55:42 AM EDT [facility] Z95.0 Presence of cardiac pacemaker Presence of cardiac pace maker Diagnosis 05/10/2021 10:55:42 AM EDT [facility] R15.9 [id number] Incontinence of feces, unspecifi ed fecal incontinence type Problem 08/21/2021 12:00:00 AM EDT eCW1 ([facility]) R63.0 Loss of appetite Appetite loss Problem 04/13/2021 12:00 :00 AM EDT eCW1 ([facility]) Surgeries/Procedures Procedure Description Date Indications Data Source(s) Med: Derm Lidocaine 1% intradermally 30ml SDV 05/29/20 12:00:00 AM EDT eCW1 ([facility]) BLOOD COUNT COMPLETE AUTO&AUTO DIFRNTL WBC COUNT <td>C BC AND DIFFERENTIAL</td><td>Routine</td><td>05/01/2021</td><td></td><td> </td> 05/01/2021 12:00:00 AM EDT [facility] LIPID PANEL <td>LIPID PANEL</td><td>Rout ine</td><td>05/01/2021</td><td></td><td> </td> 05/01/2021 12:00:00 AM EDT [facility] BASIC METABOLIC PANEL CALCIUM TOTAL <td>BASIC METABOLI C PANEL</td><td>Routine</td><td>05/01/2021</td><td></td><td> </td> 05/01/2021 12:00:00 AM EDT [facility] OFFICE OUTPATIENT VISIT 15 MINUTES 04/21/2021 12:00:00 AM EDT MEDENT ([facility], [facility]) Intermediate Eye Exam Established Patient Intermediate Eye Exam Established Patient 12/18/2020 12:00:00 AM EST ARMIN (Kenroy alan Ag MD [facility]) POCT AMB EKG <td>POCT AMB EKG</td><td>Rou jacobo</td><td>11/02/2020 5:14 PM EST</td><td> Paroxysmal atrial fibrillation</td><td> </td> 11/02/2020 10:14:00 PM EST Paroxysmal atrial fibrillation [facility] Paroxysmal atrial fibrillation Immunization: Flublok Quadrivalent (18 years & older) 0.5mL IM (Influenza) 08/25/2020 12:00:00 AM EDT eCW1 ([facility]) Results ID Date Data Source [id number] 05/10/2021 12:59:14 PM EDT [facility] Name Value Range Interpretation Code Description Data Jeanne rce(s) Supporting Document(s) &PDF [facility] CRZQOa3zDkQUVhIh14/SHOmzNUXzo5NpDMaoXYp5CSnaWAUpF7TmcYnlOSHMTqUCG21lQSXFUJbDIcCu vci [file] DeGsOABPTf/5+HxBV++f//editor continuity and script+588qGRAkS3A2NLs+YtY5AaNE/bJNJ7JRh+n//56vPJzAOWqhJQ5zyB [file] AgICAgICAgICAgICAgICAgICAgICAgICAgICAgICAgICAgICAgICAgICAgICAgICAgICAgICAgICAgIC XoMLKeIWOgIJIdMJOvSWJkLQCdCKMfIQHhDW3JDFKn ICAgICAgICAgICAgICAgICAgICAgICAgICAgICAgICAgICAgICAgICAgICAgICAgICAgICAgICAgICAg LFZyULMqBTKyZUZxXWBxQLAwTFRfNLRvPKSnGHPiSAAvVOSoGU2YAEOsVUYkMUUbQCSdOUSrYYOiGIAg ICAgICAgICAgICAgICAgICAgICAgICAgICAgICAgIC QkANRnOBNgQIZhMKRmGOJzXXHrCNNeJVZgXAZwNCNdXFPyOZCaZZKcQWEiATIsZU1QRAIsTFQaHYVuLU AgICAgICAgICAgICAgICAgICAgICAgICAgICAgICAgICAgICAgICAgICAgICAgICAgICAgICAgICAgIC NeAXPiXTIzVCYhSPEaCNOjEOKuQSNoOVOaCLEbSS0I ICAgICAgICAgICAgICAgICAgICAgICAgICAgICAgICAgICAgICAgICAgICAgICAgICAgICAgICAgICAg AIDnHQOyEYNfWREzSCPgVTFyCVPwQXDkIKJwSHXgCKPdBLDkAYDsEY7QTQMcQOPhOVKxUJJnCEIkKPWy ICAgICAgICAgICAgICAgICAgICAgICAgICAgICAgIC GvNJGiTHXhCPSyAVZjAEZmABNfEOUuHWVrTSLdXYJjLCNqXOOvWKKpFVHbVHBkBYVjRK4WZIXqJBUpLH AgICAgICAgICAgICAgICAgICAgICAgICAgICAgICAgICAgICAgICAgICAgICAgICAgICAgICAgICAgIC AgICAgICAgICAgICAgICAgICAgICAgICAgICAgICAg DI6SKQVcNIWuQFIvUAGxLLJkMKHpBCIiWQMwGOBzADIxVFTkBEQgJJEcFTKxFKHdZCPyADNrFHImXWFc SNXhHWOtUVQrGTYbVJTtQQRqMKWyOUEfRDGkDVLxNCRyQZNeOYFsZFWbKX6BRDVuGMIlLFXwRRTaFUXo ICAgICAgICAgICAgICAgICAgICAgICAgICAgICAgIC PsYAKpGAZuFNIjTOGiIFSqMVVhGYZlPYXkUKQcAYHmOBIxIQGbYDNaLZBwIBUaNIOfNUNzVJ8TNYCoXW AgICAgICAgICAgICAgICAgICAgICAgICAgICAgICAgICAgICAgICAgICAgICAgICAgICAgICAgICAgIC AgICAgICAgICAgICAgICAgICAgICAgICAgICAgICAg IEKpND7UKX25gKVaw1A3NGQdNP3oogj/Xe2IXVmgkxFwvKAbQN3TZnWkVP9esm9EUqMhTA5nib2LDJrQ RqMyL5J9hERqJHQbWQVWKsVuJ14hZSavFg97PKofCOGtTlUbEDl7Lx6AWcTbN4boVJOtPlQ9XGWwMdO5 ECOhGuQvBUizVZ3Pz0BlkFKaQVr+Mh7EYU5qi2RnQW hzFsTxGF5vwn3QPJnFBaMjZ0J0zNBsF2J6JBjiQz5RHHIbPBSrFuWyVINQYJwxVG5TOW2tupH1YQ5NoA LjVECvTSBrnTXcSZu4Q68upQRxNCtoZY6WJKP+Yajaira+Bk6NIYPjTTNgRWYoMcGyOTHAJjPaH60seSCzUK QeHBDgIAQzEg0TZNFnK5WtupRysZyvipNtYUQfLYCD SE6DJVqhjqFfgFNvrDfqPU23bTrnCV7PNa2MEaPaLK3zlk2XzLZmXf6HUEFxVG9OFCPgJSSfVYZnVXR5 QYGeHdMeTFqaSSRpLKWwQRM7FJFoJLRqHO0JMlFhWVKsERz5TYPnMVTeEGUodc5QDGFuRXQvISd0VxYt PUGfPSKkFStyOEZpUAKbDAmnYMQoNSYoRQ3WPnQzDM PyYZZ5UPjdXXKyYWNeeq5LAXIvCJHtGtnoQiPrTTIfXTDjKXtwOWFhBLG5PBH6VDAeTKAgRP0OCaFyWY VcHIIlPfbjXEStCMWvib9CCUYbAGXxSaDdPgXjTTFySTJuMDbvTEKrSSX6EnLyEHXwLNEhLT8VFoCeLO PqJCV3HUDuTTJdJBHbks0EUHQhNUVlQjY8NlUoRYMa ATFzFGrfFDAoKJG7BFD6QDCcCBLjRL2UCaIaADNcVUk9SGTlBRYkDNYzmu5IOVQrRICuDdVtIMQtBHSb GSFtJCaiNRHkFOMpRWE3UXMyPQShXS9WZpMnOGXfYHIjNgicDVPiIEQtzi5AVCInLNLlMvS3KMAxJETx ERYmHQprYFOtWJXuFPU7OXAaLCIgQA8ZAsLrJSIeWU D3BxwuKRUmYMGhtr5XTEZlSORyOMB9BbSzGKDhZCHuXHwiCTJzAPU1VUZ3JVDxIBIvNY6YFmFrMWNiDT V6BonxQOKoVIOlwf7LSXQtPFKrFLz0ZiZqGGVcKRJpOJbgNPJuPKR3PNC6JEPoKLRmRP3LDaNlAEYvTW U0PLChPBDpSRUtbr2JRTKrVGPpQwk7AJHvJHQxGTWv ZNaqNJFpVJM4JRc7NOBcRMRvFM0NBxNnFRZaUJhjGNuhCBMvTVYyuv0PTKXtKTMfWsD6EsGaKXFnLELl CWkkNYBtZFK9HWY8BPTmJFXyID0EVjPjAGQeIAe4BZYuUTLlFXJllu4OZAAkHTUvVXl3NrDxEFCjMFQm VGd3hsCerTTjUPc4CJ6GD4JiazYiFuNXZs4Of634WW TbTAUtDi6AU6ylAa8dXNSyTEBLXr6LIUr1ARacLfY8LyMyYcSwVrcaTGOtBwKcFTtiJkagZ1CxUgA+ID ocVPNwTPRdWwPwWoAdBNMlUNUgGNWmKQYtGHXnOuOcOA5sVVZJCm2+QGzaxNTmsIebFUXAVmEzIBL2TE bfYUSJDk4L ID Date Data Source Celiac Disease Comprehensive 05/01/2021 12:00:00 AM EDT eCW1 ([facility]) Name Value Range Interpretation Code Description Data Jeanne rce(s) Supporting Document(s) Gliadin IgG Ab [Units/volume] in Serum by Immunoassay 1 0-19 DEAMIDATED GLIADIN ABS, IgG eCW1 ([facility]) Gliadin IgA Ab [Units/volume] in Serum by Immunoassay 3 0-19 DEAMIDATED GLIADIN ABS, IgA eCW1 ([facility]) Tissue transglutaminase IgG Ab [Units/volume] in Serum <2 0-5 t- TRANSGLUTAMINASE(tTG) IgG eCW1 ([facility]) Tissue transglutaminase IgA Ab [Units/volume] in Serum <2 0-3 t- TRANSGLUTAMINASE(tTG) IgA eCW1 ([facility]) IgA [Mass/volume] in Serum or Plasma 283 64-422 IMMUNOGLOBULIN A eCW1 ([facility]) Endomysium IgA Ab [Presence] in Serum Negative Negative ENDOMYSIAL ANTIBODY IgA eCW1 ([facility]) ID Date Data Source Comprehensive Metabolic Profile (CMP) 05/01/2021 12:00:00 AM EDT eCW1 ([facility]) Name Value Range Interpretation Code Description Data Jeanne rce(s) Supporting Document(s) 89 70-100 GLUCOSE, FASTING eCW1 ([facility]) 12 7-18 BLOOD UREA NITROGEN eCW1 ([facility]) 0.68 0.55-1.30 CREATININE FOR GFR eCW1 ([facility]) > 60.0 >32 GLOMERULAR FILTRATION RATE eCW 1 ([facility]) 134 136-145 SODIUM LEVEL eCW1 ([facility]) 29 21-32 CARBON DIOXIDE LEVEL eCW1 ([facility]) 102 98-107 CHLORIDE LEVEL eCW1 ([facility]) 6.3 3.5-5.1 POTASSIUM SERUM eCW1 ([facility]) 22 12-78 ALT/SGPT eCW1 ([facility]) 20 7-37 AST/SGOT eCW1 ([facility]) 9.7 8.8-10.2 CALCIUM LEVEL eCW1 ([facility]) 66 45-117 ALKALINE PHOSPHATASE eCW1 ([facility]) 7.5 6.4-8.2 TOTAL PROTEIN eCW1 ([facility]) 0.4 0.2-1.0 BILIRUBIN,TOTAL eCW1 ([facility]) 4.0 3.2-5.2 ALBUMIN eCW1 ([facility]) 1.1 1.2-2.2 ALBUMIN/GLOBULIN RATIO eCW1 ([facility]) ID Date Data Source CBC with Differential 05/01/2021 12:00:00 AM EDT eCW1 ([facility]) Name Value Range Interpretation Code Description Data Jeanne rce(s) Supporting Document(s) 14.7 12.0-15.5 HEMOGLOBIN eCW1 (Critical access hospital) 8.5 4.0-10.0 WHITE BLOOD COUNT eCW1 ([facility]) 4.84 4.00-5.40 RED BLOOD COUNT eCW1 ([facility]) 96.9 80.0-96.0 MEAN CORPUSCULAR VOLUME e CW1 ([facility]) 30.4 27.0-33.0 MEAN CORPUSCULAR HEMOGLOB IN eCW1 ([facility]) 46.9 36.0-47.0 HEMATOCRIT eCW1 ([facility]) 332 150-450 PLATELET COUNT, AUTOMATED eCW1 ([facility]) 12.4 11.5-14.5 RED CELL DISTRIBUTION WID TH eCW1 ([facility]) 31.3 32.0-36.5 MEAN CORPUSCULAR HGB CONC eCW1 ([facility]) 69.3 36.0-66.0 NEUTROPHILS % eCW1 ([facility]) 21.2 24.0-44.0 LYMPH % eCW1 ([facility]) 7.5 2.0-8.0 MONO % eCW1 ([facility]) 5.9 1.5-8.5 NEUTROPHILS # eCW1 ([facility]) 0.7 0.0-3.0 EOS % eCW1 ([facility]) 0.5 0.0-1.0 BASO % eCW1 ([facility]) 0.1 0.0-0.5 EOS # eCW1 ([facility]) 0.6 0.0-0.8 MONO # eCW1 ([facility]) 1.8 1.5-5.0 LYMPH # eCW1 ([facility]) 0.0 0.0-0.2 BASO # eCW1 ([facility]) ID Date Data Source DIGOXIN LEVEL 04/13/2021 12:00:00 AM EDT eCW1 ([facility]) Name Value Range Interpretation Code Description Data Jeanne rce(s) Supporting Document(s) 1.0 0.5-2.0 DIGOXIN LEVEL eCW1 ([facility]) ID Date Data Source CBC - Complete Blood Count 04/13/2021 12:00:00 AM EDT eCW1 ( [facility]) Name Value Range Interpretation Code Description Data Jeanne rce(s) Supporting Document(s) 7.7 4.0-10.0 WHITE BLOOD COUNT eCW1 ([facility]) 97.6 80.0-96.0 MEAN CORPUSCULAR VOLUME e CW1 ([facility]) 4.67 4.00-5.40 RED BLOOD COUNT eCW1 ([facility]) 14.4 12.0-15.5 HEMOGLOBIN eCW1 ([facility] hospital) 45.6 36.0-47.0 HEMATOCRIT eCW1 (Critical access hospital) 31.6 32.0-36.5 MEAN CORPUSCULAR HGB CONC eCW1 ([facility]) 30.8 27.0-33.0 MEAN CORPUSCULAR HEMOGLOB IN eCW1 ([facility]) 12.6 11.5-14.5 RED CELL DISTRIBUTION WID TH eCW1 ([facility]) 261 150-450 PLATELET COUNT, AUTOMATED eCW1 ([facility]) ID Date Data Source VITAMIN B12 LEVEL 01/19/2021 12:00:00 AM EDT eCW1 ([facility]) Name Value Range Interpretation Code Description Data Jeanne rce(s) Supporting Document(s) 772 249-291 eCW1 ([facility]) ID Date Data Source LIPID PANEL (CARDIAC RISK) 01/19/2021 12:00:00 AM EDT eCW1 ( [facility]) Name Value Range Interpretation Code Description Data Jeanne rce(s) Supporting Document(s) 205 eCW1 ([facility]) Triglyceride [Mass/volume] in Serum or Plasma by calculation 407 <150 eCW1 ([facility]) Cholesterol [Moles/volume] in Serum or Plasma 249 <200 eCW1 ([facility]) Cholesterol in HDL [Moles/volume] in Serum or Plasma 44 >40 eCW1 ([facility]) 5.659 <5 eCW1 ([facility]) ID Date Data Source FREE T4 & TSH PANEL 01/19/2021 12:00:00 AM EDT eCW1 ([facility]) Name Value Range Interpretation Code Description Data Jeanne rce(s) Supporting Document(s) 0.931 0.358-3.740 THYROID STIMULATING HORM ONE eCW1 ([facility]) 0.95 0.76-1.46 FREE T4 eCW1 ([facility]) ID Date Data Source MAGNESIUM LEVEL 01/19/2021 12:00:00 AM EDT eCW1 ([facility]) Name Value Range Interpretation Code Description Data Jeanne rce(s) Supporting Document(s) 2.2 1.8-2.4 MAGNESIUM LEVEL eCW1 ([facility]) ID Date Data Source FOLATE 01/19/2021 12:00:00 AM EDT eCW1 ([facility]) Name Value Range Interpretation Code Description Data Jeanne rce(s) Supporting Document(s) 10.7 >5.4 eCW1 ([facility]) ID Date Data Source [id number] 01/19/2021 12:00:00 AM EDT eCW1 ([facility]) Name Value Range Interpretation Code Description Data Jeanne rce(s) Supporting Document(s) Hemoglobin A1c/Hemoglobin.total in Blood 5.2 eCW1 ([facility]) ID Date Data Source [id number] 11/14/2020 12:00:00 AM EST [facility] Name Value Range Interpretation Code Description Data Jeanne rce(s) Supporting Document(s) SARS-CoV-2 (COVID-19) RNA [Presence] in Respiratory specimen by [facility]IV[facility] with probe detection Not Detected [facility] This lab was ordered by [facility] and reported by [facility]. 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 [file] ICAgICAgICAgICAgICAgICAgICAgICAgICAgICAgIC AgICAgICAgICAgICAgICAgICAgICAgICAgICAgICAgDQogICAgICAgICAgICAgICAgICAgICAgICAgIC AgICAgICAgICAgICAgICAgICAgICAgICAgICAgICAgICAgICAgICAgICAgICAgICAgICAgICAgICAgIC AgICAgICAgICAgICAgDQogICAgICAgICAgICAgICAg ICAgICAgICAgICAgICAgICAgICAgICAgICAgICAgICAgICAgICAgICAgICAgICAgICAgICAgICAgICAg ICAgICAgICAgICAgICAgICAgICAgICAgDQogICAgICAgICAgICAgICAgICAgICAgICAgICAgICAgICAg ICAgICAgICAgICAgICAgICAgICAgICAgICAgICAgIC AgICAgICAgICAgICAgICAgICAgICAgICAgICAgICAgICAgDQogICAgICAgICAgICAgICAgICAgICAgIC AgICAgICAgICAgICAgICAgICAgICAgICAgICAgICAgICAgICAgICAgICAgICAgICAgICAgICAgICAgIC AgICAgICAgICAgICAgICAgDQogICAgICAgICAgICAg ICAgICAgICAgICAgICAgICAgICAgICAgICAgICAgICAgICAgICAgICAgICAgICAgICAgICAgICAgICAg ICAgICAgICAgICAgICAgICAgICAgICAgICAgDQogICAgICAgICAgICAgICAgICAgICAgICAgICAgICAg ICAgICAgICAgICAgICAgICAgICAgICAgICAgICAgIC AgICAgICAgICAgICAgICAgICAgICAgICAgICAgICAgICAgICAgDQogICAgICAgICAgICAgICAgICAgIC AgICAgICAgICAgICAgICAgICAgICAgICAgICAgICAgICAgICAgICAgICAgICAgICAgICAgICAgICAgIC AgICAgICAgICAgICAgICAgICAgDQogICAgICAgICAg ICAgICAgICAgICAgICAgICAgICAgICAgICAgICAgICAgICAgICAgICAgICAgICAgICAgICAgICAgICAg ICAgICAgICAgICAgICAgICAgICAgICAgICAgICAgDQogICAgICAgICAgICAgICAgICAgICAgICAgICAg ICAgICAgICAgICAgICAgICAgICAgICAgICAgICAgIC EfXKSxVZYkFSItNEDvCAMbQYYaSLMyZKOqWDUlQVXgETByPFWxUMCrAQj3I3eaATVsQVRnWZ5iAYy0Av 8+EAyLTvDyMWA7vjBkrH6TOD4qm1QiEOvnKGHdj2PrHZt3XM4VIAFkSQlqZZ4CLNvqia0YUERrGFOrhA QTw6ksLoZtJJJ1ELNbIovuOT0PCQRbP3fapyFzNNEu MSEDVD0SEeCvN7KvdA26FBISUx8+QNapfjDoSwvEScI1HHJsh5GlNAk7HW4OALPjCOxyQC7BGSDuuH5c FAvwNY2TZdTgDtOvPBIHNfSeP58xwGDoWXk3I5XaJhPqBSQqMtpzUKRtIOztPpAfVZCuMgXfJNnfGY6+ ID4+RGojYE6NLZntqeAbUSPqSl9CARQvQFD2WIRiiC SvVEjsZQAGUDfqTX7DuXDtWHS1cC7wXZkaOCGcPDJsW6uBUrArqAdpIF08nMqyecUhlRGeRRa+Pg0KZW 8it1IdNMp3kiFrMHdwMDMuEXzgQBCuIUCyNBNmIRC4NUU6NKHGCcXoZMDzTFDrNRevHTHyTGSoee5LLZ RwRFDhQHo9LLYfSPQfMPItPYvrVYInHMF5FHT7YTWw VAHqVE0IFjIvJUPqLBCbGSXlVVQmYNGuek0FVCTkHUAqInx4EpWpTTTjXOHqKFhgUSHwVTBnRKDwKKJg HUTeZY4ITtUwAAOxGWE3ZhEzMFWaLTFupv1DWZEtMQBzHGN7LgNzFXUlHMMmJUlyTAJlBYR3XcR9ASCk JDIpAB5CKuWqQGYcTYMiMKSeDIAgMNTqzl4XPMRzTS HsMTL2KqBeIOYbEODiOQoaNUTyFUK0YkfjNPEiTGKrIW8REpDmDVNxJZA1AIZpYBYjKAJyid5XXBNiAO LzBrf9TgXrPLMwOWVqPMuxIVOqITM3EKK3MXXwOHQkNW7HWzQsRHGcMVQ2GVakJBWeXUAblk0GHOPdIR ByKVfyTeUfPYCoTGLmJLxpEGOsNDJ3XZC3QZXvCINo GD8IDhXkAAHxNMs4OLKoBAZiPCFzfm7LfZDdwJcpdn8QABrVDg8UjEbdWGLhWKbqDm1zsYOxAFFmVZEE Tl7XtlYwTYBrYUTCPUibZLOmVTAbKcZsIwH9IjLrJlU2TnVlWTv2FHCwCGKnHUR6FYE1EcG7PlLhFYGr SFxfKlKfWRP7DuJ5LErwDeZiZuX1TnM0DMB+IF0g DQo+Zw3Pb1ZftxD8joXjLSidDes6Ed9JKHYYO8FBYe== Procedure Social History Code Duration Value Status Description Data Source(s ) Smoking 08/16/2021 12:00:00 AM EDT Never Smoker completed Never S moker eCW1 ([facility]) Smoking 07/07/2021 11:45:27 AM EDT Never smoked tobacco (findi ng) completed Never smoked tobacco (finding) ARMIN (Ladarius Ag MD [facility]) Smoking 05/29/2021 12:00:00 AM EDT Never Smoker completed Never S moker eCW1 ([facility]) Smoking 05/29/2021 12:00:00 AM EDT Never Smoker completed Never S moker eCW1 ([facility]) Smoking 05/29/2021 12:00:00 AM EDT Never Smoker completed Never S moker eCW1 ([facility]) Smoking 05/01/2021 12:00:00 AM EDT Never Smoker completed Never S moker eCW1 ([facility]) Smoking 05/01/2021 12:00:00 AM EDT Never Smoker completed Never S moker eCW1 ([facility]) Smoking 05/01/2021 12:00:00 AM EDT Never Smoker completed Never S moker eCW1 ([facility]) Smoking 04/21/2021 12:00:00 AM EDT Patient has never smoked co mpleted Patient has never smoked MEDENT ([facility], [facility]) Smoking 04/13/2021 12:00:00 AM EDT Never Smoker completed Never S moker eCW1 ([facility]) Smoking 04/13/2021 12:00:00 AM EDT Never Smoker completed Never S moker eCW1 ([facility]) Smoking 01/19/2021 12:00:00 AM EDT Never Smoker completed Never S moker eCW1 ([facility]) Smoking 01/19/2021 12:00:00 AM EDT Never Smoker completed Never S moker eCW1 ([facility]) Alcohol intake 11/02/2020 12:00:00 AM EST Current drinker of al cohol (finding) completed Current drinker of alcohol (finding) [facility] Smoking 11/02/2020 12:00:00 AM EST [facility] 09[facility]/2020 12:00:00 AM EST Never Smoker completed Never S moker eCW1 ([facility]) Smoking 09/29/2020 12:00:00 AM EST Never Smoker completed Never S moker eCW1 ([facility]) Smoking 08/25/2020 12:00:00 AM EDT Never Smoker completed Never S moker eCW1 ([facility]) Smoking 08/25/2020 12:00:00 AM EDT Never Smoker completed Never S moker eCW1 ([facility]) Smoking 08/25/2020 12:00:00 AM EDT Never Smoker completed Never S moker eCW1 ([facility]) Vital Signs ID Date Data Source UNK Name Value Range Interpretation Code Description Data Source(s) Body weight 115.2 [lb_av] 115.2 [lb_av] eCW1 ([facility]) Body height 60 [in_i] 60 [in_i] eCW1 ([facility]) Body mass index (BMI) [Ratio] 22.50 kg/m2 22.50 kg/m2 W1 ([facility]) Heart rate 77 /min 77 /min eCW1 ([facility]) Respiratory rate 18 /min 18 /min eCW1 ([facility]) Body temperature 98.2 [degF] 98.2 [degF] eCW1 ( [facility]) Systolic blood pressure 122 mm[Hg] 122 mm[Hg] e CW1 ([facility]) Diastolic blood pressure 80 mm[Hg] 80 mm[Hg] eCW1 ([facility]) Body weight 114 [lb_av] 114 [lb_av] eCW1 ([facility]) Body weight 51.71 kg 51.71 kg eCW1 ([facility]) Body height 60 [in_i] 60 [in_i] eCW1 ([facility]) Body mass index (BMI) [Ratio] 22.26 kg/m2 22.26 kg/m2 eCW1 ([facility]) Systolic blood pressure 130 mm[Hg] 130 mm[Hg] e CW1 ([facility]) Diastolic blood pressure 80 mm[Hg] 80 mm[Hg] eCW1 ([facility]) Body weight 112 [lb_av] 112 [lb_av] eCW1 ([facility]) Body height 60 [in_i] 60 [in_i] eCW1 ([facility]) Body mass index (BMI) [Ratio] 21.87 kg/m2 21.87 kg/m2 eCW1 ([facility]) Heart rate 70 /min 70 /min eCW1 ([facility]) Respiratory rate 18 /min 18 /min eCW1 ([facility]) Body temperature 96.6 [degF] 96.6 [degF] eCW1 ( [facility]) Systolic blood pressure 128 mm[Hg] 128 mm[Hg] e CW1 ([facility]) Diastolic blood pressure 78 mm[Hg] 78 mm[Hg] eCW1 ([facility]) Systolic blood pressure 136 mm[Hg] 136 mm[Hg] [facility] Diastolic blood pressure 83 mm[Hg] 83 mm[Hg] [facility] Heart rate 66 /min 66 /min [facility] Body height 149.9 cm 149.9 cm [facility] Body weight 50.349 kg 50.349 kg [facility] Body mass index (BMI) [Ratio] 22.42 kg/m2 22.42 kg/m2 [facility] Oxygen saturation in Arterial blood by Pulse oximetry 98 % 98 % [facility] Body weight 113.4 [lb_av] 113.4 [lb_av] eCW1 ([facility]) Body height 60 [in_i] 60 [in_i] eCW1 ([facility] Body mass index (BMI) [Ratio] 22.14 kg/m2 22.14 kg/m2 W1 ([facility]) Heart rate 74 /min 74 /min eCW1 ([facility]) Respiratory rate 18 /min 18 /min eCW1 ([facility]) Body temperature 98.3 [degF] 98.3 [degF] eCW1 ( [facility]) Systolic blood pressure 122 mm[Hg] 122 mm[Hg] e CW1 ([facility]) Diastolic blood pressure 80 mm[Hg] 80 mm[Hg] eCW1 ([facility]) Systolic blood pressure 148 mm[Hg] 148 mm[Hg] M EDENT ([facility], [facility]) Diastolic blood pressure 89 mm[Hg] 89 mm[Hg] MEDENT ([facility], [facility]) Heart rate 71 /min 71 /min MEDENT ([facility]) Respiratory rate 13 /min 13 /min MEDENT ( [facility], [facility]) Oxygen saturation in Arterial blood by Pulse oximetry 97 % 97 % MEDENT ([facility], [facility]) Body temperature 97.1 [degF] 97.1 [degF] MEDENT ([facility], [facility]) Body weight 116.00 [lb_av] 116.00 [lb_av] MEDEN T ([facility], [facility]) Body height 59 [in_i] 59 [in_i] MEDENT ([facility]) 4'11" Body mass index (BMI) [Ratio] 23.4 kg/m2 23.4 k g/m2 MEDENT ([facility], [facility]) Body weight 115 [lb_av] 115 [lb_av] eCW1 ([facility]) Body height 60 [in_i] 60 [in_i] eCW1 ([facility]) Body mass index (BMI) [Ratio] 22.46 kg/m2 22.46 kg/m2 W1 ([facility]) Heart rate 77 /min 77 /min eCW1 ([facility]) Respiratory rate 18 /min 18 /min eCW1 ([facility]) Body temperature 97.4 [degF] 97.4 [degF] eCW1 ( [facility]) Systolic blood pressure 122 mm[Hg] 122 mm[Hg] e CW1 ([facility]) Diastolic blood pressure 60 mm[Hg] 60 mm[Hg] eCW1 ([facility]) Body weight 116 [lb_av] 116 [lb_av] eCW1 ([facility]) Body height 60 [in_i] 60 [in_i] eCW1 ([facility]) Body mass index (BMI) [Ratio] 22.65 kg/m2 22.65 kg/m2 W1 ([facility]) Heart rate 72 /min 72 /min eCW1 ([facility]) Respiratory rate 18 /min 18 /min eCW1 ([facility]) Body temperature 97.4 [degF] 97.4 [degF] eCW1 ( [facility]) Systolic blood pressure 124 mm[Hg] 124 mm[Hg] e CW1 ([facility]) Diastolic blood pressure 70 mm[Hg] 70 mm[Hg] eCW1 ([facility]) Systolic blood pressure 142 mm[Hg] 142 mm[Hg] [facility] Diastolic blood pressure 70 mm[Hg] 70 mm[Hg] [facility] Heart rate 70 /min 70 /min [facility] Body height 149.9 cm 149.9 cm [facility] Body weight 53.071 kg 53.071 kg [facility] Body mass index (BMI) [Ratio] 23.63 kg/m2 23.63 kg/m2 [facility] Oxygen saturation in Arterial blood by Pulse oximetry 98 % 98 % [facility] Body weight 118 [lb_av] 118 [lb_av] eCW1 ([facility]) Body height 60 [in_i] 60 [in_i] eCW1 ([facility]) Body mass index (BMI) [Ratio] 23.04 kg/m2 23.04 kg/m2 W1 ([facility]) Systolic blood pressure 132 mm[Hg] 132 mm[Hg] e CW1 ([facility]) Diastolic blood pressure 84 mm[Hg] 84 mm[Hg] eCW1 ([facility]) Body weight 118 [lb_av] 118 [lb_av] eCW1 ([facility]) Body height 60 [in_i] 60 [in_i] eCW1 ([facility]) Body mass index (BMI) [Ratio] 23.04 kg/m2 23.04 kg/m2 eCW1 ([facility]) Heart rate 75 /min 75 /min eCW1 ([facility]) Respiratory rate 18 /min 18 /min eCW1 ([facility]) Body temperature 97.0 [degF] 97.0 [degF] eCW1 ( [facility]) Systolic blood pressure 124 mm[Hg] 124 mm[Hg] e CW1 ([facility]) Diastolic blood pressure 68 mm[Hg] 68 mm[Hg] eCW1 ([facility]) Patient Treatment Plan of Care Planned Activity Planned Date Details Description Data Source (s) Amoxicillin 875 MG / Clavulanate 125 MG Oral Tablet 05/29/20 12:00:00 AM EDT eCW1 ([facility]) Amoxicillin 875 MG / Clavulanate 125 MG Oral Tablet 05/29/20 21 12:00:00 AM EDT eCW1 ([facility]) Amoxicillin 875 MG / Clavulanate 125 MG Oral Tablet 05/29/20 21 12:00:00 AM EDT eCW1 ([facility]) Ketoconazole 20 MG/ML Medicated Shampoo 09/29/2020 12:00:00 AM EST eCW1 ([facility]) Clobetasol Propionate 0.5 MG/ML Topical Solution 09/29/2020 12:00:0 0 AM EST eCW1 ([facility]) Fluocinonide 0.5 MG/ML Topical Solution 09/29/2020 12:00:00 AM EST eCW1 ([facility]) Ketoconazole 20 MG/ML Medicated Shampoo 09/29/2020 12:00:00 AM EST eCW1 ([facility]) Clobetasol Propionate 0.5 MG/ML Topical Solution 09/29/2020 12:00:0 0 AM EST eCW1 ([facility]) Fluocinonide 0.5 MG/ML Topical Solution 09/29/2020 12:00:00 AM EST eCW1 ([facility])
[2021-08-27 19:20] VITALS: BP 155/99
== END 2021-08-27 19:21 | disposition home or self-care (01) ==
LOC: M ED 15:59
DX: G44.009 Cluster headache syndrome, unspecified, not intractable (principal); I25.2 Old myocardial infarction; I10 Essential (primary) hypertension; Z79.82 Long term (current) use of aspirin; Z79.899 Other long term (current) drug therapy; Z88.1 Allergy status to other antibiotic agents; Z86.73 Personal history of transient ischemic attack (TIA), and cerebral infarction without residual deficits

== ENCOUNTER → 2021-08-31 | Outpatient (CLI) | payer MEDICARE, OTHER ==
--- NOTE | 2021-08-31 08:51 | REPVR ---
PROCEDURE INFORMATION: Exam: CT Head Without Contrast Exam date and time: 08/31/2021 8:15 AM Age: 86 years old Clinical indication: Pain; Other: Vascular headache; Additional info: Vascular headache needs lab after CT TECHNIQUE: Imaging protocol: Computed tomography of the head without contrast. Radiation optimization: All CT scans at this facility use at least one of these dose optimization techniques: automated exposure control; mA and/or kV adjustment per patient size (includes targeted exams where dose is matched to clinical indication); or iterative reconstruction. COMPARISON: CT Head without contrast 05/18/2019 3:07 PM FINDINGS: Brain: There is no acute intracranial hemorrhage or mass effect. Moderate diffuse volume loss is within the range of normal for patient age. There are small vessel ischemic changes within the periventricular and subcortical white matter, but the normal moe-white matter delineation is maintained. Chronic lacunar infarcts involve the wang radiata. Cerebral ventricles: Prominence of the ventricular system is commensurate with volume loss. Paranasal sinuses: Visualized sinuses are unremarkable. No fluid levels. Mastoid air cells: Visualized mastoid air cells are well aerated. Bones/joints: Unremarkable. No acute fracture. Soft tissues: Unremarkable. IMPRESSION: No acute hemorrhage or edema. Chronic changes. Electronically signed by: Elvia Zayas On 08/31/2021 08:50:52 AM
[2021-08-31 09:21] LABS: HEMATOCRIT 42.8 % (36.0-47.0); MEAN CORPUSCULAR HEMOGLOBIN 31.1 pg (27.0-33.0); MEAN CORPUSCULAR HGB CONC 32.7 g/dl (32.0-36.5); MEAN CORPUSCULAR VOLUME 95.1 fl (80.0-96.0); PLATELET COUNT, AUTOMATED 234 10^3/uL (150-450); WHITE BLOOD COUNT 6.4 10^3/uL (4.0-10.0)
[2021-08-31 09:59] LABS: ALBUMIN 3.6 GM/DL (3.2-5.2); ALT/SGPT 21 U/L (12-78); BILIRUBIN,TOTAL 0.7 MG/DL (0.2-1.0); BLOOD UREA NITROGEN 16 MG/DL (7-18); CALCIUM LEVEL 9.7 MG/DL (8.8-10.2); CARBON DIOXIDE LEVEL 26 MEQ/L (21-32); CHLORIDE LEVEL 104 MEQ/L (98-107); CHOLESTEROL LEVEL 251 MG/DL (<200); CHOLESTEROL RISK RATIO 6.605 (<5); CREATININE FOR GFR 0.76 MG/DL (0.55-1.30); DIGOXIN LEVEL 1.1 NG/ML (0.5-2.0); FREE T4 1.01 NG/DL (0.76-1.46); GLOMERULAR FILTRATION RATE > 60.0 (>32); GLUCOSE, FASTING 96 MG/DL (70-100); HDL CHOLESTEROL 38 MG/DL (>40); LDL CHOLESTEROL 161 MG/DL (<100); NON-HDL-C 213 MG/DL; POTASSIUM SERUM 4.3 MEQ/L (3.5-5.1); SODIUM LEVEL 138 MEQ/L (136-145); TRIGLYCERIDES LEVEL 262 MG/DL (<150)
[2021-08-31 10:16] LABS: ERYTHROCYTE SEDIMENTATION RATE 16 mm/hr (0-30)
== END ==
LOC: M LAB 08:02 → M RAD 08:02
PROVIDERS: ATTEND Family Medicine
DX: R51.9 Headache, unspecified (principal); E07.9 Disorder of thyroid, unspecified; E78.00 Pure hypercholesterolemia, unspecified

== ENCOUNTER 2021-10-24 18:45 | Inpatient (IN) | payer MEDICARE, OTHER ==
[~2021-10-24] VITALS: Ht 149.9 cm; Wt 51.8 kg
[2021-10-24] MEDS ORDERED: NS 500 ML IV ONE (19:35)
[2021-10-24 20:04] LABS: BASO % 0.2 % (0.0-1.0); EOS % 0.2 % (0.0-3.0); HEMATOCRIT 39.3 % (36.0-47.0); HEMOGLOBIN 12.9 g/dl (12.0-15.5); LYMPH # 1.3 10^3/uL (1.5-5.0); LYMPH % 14.4 % (24.0-44.0); MEAN CORPUSCULAR HEMOGLOBIN 30.7 pg (27.0-33.0); MEAN CORPUSCULAR HGB CONC 32.8 g/dl (32.0-36.5); MEAN CORPUSCULAR VOLUME 93.6 fl (80.0-96.0); MONO # 0.6 10^3/uL (0.0-0.8); MONO % 6.3 % (2.0-8.0); NEUTROPHILS # 6.9 10^3/uL (1.5-8.5); NEUTROPHILS % 78.3 % (36.0-66.0); PLATELET COUNT, AUTOMATED 212 10^3/uL (150-450); WHITE BLOOD COUNT 8.8 10^3/uL (4.0-10.0)
[2021-10-24 20:41] LABS: RSV AMPLIFICATION NEGATIVE (NEGATIVE)
[2021-10-24 20:45] LABS: ALBUMIN 3.4 GM/DL (3.2-5.2); ALT/SGPT 18 U/L (12-78); BILIRUBIN,DIRECT 0.1 MG/DL (0.0-0.2); BILIRUBIN,TOTAL 0.4 MG/DL (0.2-1.0); BLOOD UREA NITROGEN 14 MG/DL (7-18); CALCIUM LEVEL 9.4 MG/DL (8.8-10.2); CARBON DIOXIDE LEVEL 30 MEQ/L (21-32); CHLORIDE LEVEL 102 MEQ/L (98-107); CREATININE FOR GFR 0.59 MG/DL (0.55-1.30); GLOMERULAR FILTRATION RATE > 60.0 (>32); GLUCOSE, FASTING 113 MG/DL (70-100); POTASSIUM SERUM 4.7 MEQ/L (3.5-5.1); SODIUM LEVEL 138 MEQ/L (136-145); THYROID STIMULATING HORMONE 0.838 uIU/ML (0.358-3.740); TOTAL PROTEIN 6.4 GM/DL (6.4-8.2)
[2021-10-24] MEDS ORDERED: CARV12.5 PO (22:45)
[2021-10-24] MEDS ORDERED: DIGO0.123 PO (22:45)
[2021-10-24] MEDS ORDERED: CYAN100050 PO (22:45)
[2021-10-24] MEDS ORDERED: ASPI81TA26 PO (22:45)
[2021-10-24] MEDS ORDERED: D31000TA2 PO (22:45)
[2021-10-24] MEDS ORDERED: SPIR-10 PO (22:51)
[2021-10-24] MEDS ORDERED: FLUO10CA16 PO (22:51)
[2021-10-24] MEDS ORDERED: PANT40TA29 PO (22:51)
[2021-10-24] MEDS ORDERED: HOME MED LIST COMPLETE! XX SCH (22:55)
[2021-10-24] MEDS ORDERED: ISOVUE-370 76% 100ML VIAL As Ordered ONE (23:23)
[2021-10-25] MEDS ORDERED: ATORVASTATIN 20 MG TAB PO ONE
[2021-10-25 07:40] LABS: HEMATOCRIT 40.7 % (36.0-47.0); HEMOGLOBIN 13.2 g/dl (12.0-15.5); MEAN CORPUSCULAR HEMOGLOBIN 30.8 pg (27.0-33.0); MEAN CORPUSCULAR HGB CONC 32.4 g/dl (32.0-36.5); MEAN CORPUSCULAR VOLUME 94.9 fl (80.0-96.0); PLATELET COUNT, AUTOMATED 210 10^3/uL (150-450); RED BLOOD COUNT 4.29 10^6/uL (4.00-5.40); WHITE BLOOD COUNT 7.3 10^3/uL (4.0-10.0)
[2021-10-25 08:10] LABS: ALBUMIN 3.2 GM/DL (3.2-5.2); ALT/SGPT 17 U/L (12-78); BILIRUBIN,TOTAL 0.4 MG/DL (0.2-1.0); BLOOD UREA NITROGEN 9 MG/DL (7-18); CALCIUM LEVEL 9.1 MG/DL (8.8-10.2); CARBON DIOXIDE LEVEL 32 MEQ/L (21-32); CHLORIDE LEVEL 105 MEQ/L (98-107); GLOMERULAR FILTRATION RATE > 60.0 (>32); GLUCOSE, FASTING 87 MG/DL (70-100); MAGNESIUM LEVEL 2.2 MG/DL (1.8-2.4); POTASSIUM SERUM 3.9 MEQ/L (3.5-5.1); SODIUM LEVEL 141 MEQ/L (136-145); TOTAL PROTEIN 6.3 GM/DL (6.4-8.2)
[2021-10-25] MEDS ORDERED: CARVedilol 12.5 MG TAB PO SCH (09:00)
[2021-10-25] MEDS ORDERED: SPIRONOLACTONE 12.5MG PER 1/2 TABLET PO SCH (09:00)
[2021-10-25] MEDS ORDERED: ASPIRIN 81MG ENTERIC TABLET PO SCH (09:00)
[2021-10-25 09:02] LABS: INR 0.98; PROTHROMBIN TIME 13.4 SECONDS (12.7-14.5)
[2021-10-25] MEDS: ENOXAPARIN 40MG/0.4ML SYRINGE (J1650 PER 10MG) SC SCH (10:31)
[2021-10-25] MEDS: FLUoxetine 20 MG CAP PO SCH (10:32)
[2021-10-25] MEDS: PANTOPRAZOLE 40MG TAB (PROTONIX) PO SCH (10:32)
[2021-10-25] MEDS: VITAMIN D 1,000 INTERNATIONAL UNITS TABLET PO SCH (10:32)
[2021-10-25] MEDS: DIGOXIN 0.125 MG TAB PO SCH (10:33)
[2021-10-25 11:20] VITALS: BP 141/84
[2021-10-25 11:57] VITALS: BP 139/91
[2021-10-25] MEDS: NS 1,000 ML IV SCH (13:57)
[2021-10-25] MEDS ORDERED: ISOVUE-370 76% 100ML VIAL As Ordered ONE (14:22)
[2021-10-25 15:39] VITALS: BP_SYST 132; BP_SYST 135; BP_SYST 138; BP_DIAS 83; BP_DIAS 86; BP_DIAS 88
[2021-10-25 21:00] VITALS: BP 155/91
[2021-10-26] MEDS: NS 1,000 ML IV SCH (05:24)
[2021-10-26 06:20] VITALS: BP 138/74
[2021-10-26 06:34] LABS: HEMATOCRIT 39.9 % (36.0-47.0); HEMOGLOBIN 12.8 g/dl (12.0-15.5); MEAN CORPUSCULAR HEMOGLOBIN 30.3 pg (27.0-33.0); MEAN CORPUSCULAR HGB CONC 32.1 g/dl (32.0-36.5); MEAN CORPUSCULAR VOLUME 94.3 fl (80.0-96.0); PLATELET COUNT, AUTOMATED 211 10^3/uL (150-450); RED BLOOD COUNT 4.23 10^6/uL (4.00-5.40); WHITE BLOOD COUNT 7.4 10^3/uL (4.0-10.0)
[2021-10-26 07:00] LABS: ALBUMIN 3.1 GM/DL (3.2-5.2); ALT/SGPT 17 U/L (12-78); BILIRUBIN,TOTAL 0.4 MG/DL (0.2-1.0); BLOOD UREA NITROGEN 10 MG/DL (7-18); CALCIUM LEVEL 8.5 MG/DL (8.8-10.2); CARBON DIOXIDE LEVEL 28 MEQ/L (21-32); CHLORIDE LEVEL 109 MEQ/L (98-107); CREATININE FOR GFR 0.62 MG/DL (0.55-1.30); GLOMERULAR FILTRATION RATE > 60.0 (>32); GLUCOSE, FASTING 87 MG/DL (70-100); POTASSIUM SERUM 3.8 MEQ/L (3.5-5.1); SODIUM LEVEL 141 MEQ/L (136-145); TOTAL PROTEIN 6.3 GM/DL (6.4-8.2)
[2021-10-26 08:13] LABS: C REACTIVE PROTEIN QUANTITATIV < 0.30 MG/DL (0.00-0.30)
[2021-10-26] MEDS ORDERED: ATORVASTATIN 20 MG TAB PO SCH (09:00)
[2021-10-26 09:08] LABS: ERYTHROCYTE SEDIMENTATION RATE 17 mm/hr (0-30)
[2021-10-26] MEDS: SPIRONOLACTONE 12.5MG PER 1/2 TABLET PO SCH (10:04)
[2021-10-26] MEDS: ATORVASTATIN 20 MG TAB PO SCH (10:05)
[2021-10-26] MEDS: ASPIRIN 325 MG TAB PO SCH (10:05)
[2021-10-26] MEDS: PANTOPRAZOLE 40MG TAB (PROTONIX) PO SCH (10:05)
[2021-10-26] MEDS: FLUoxetine 20 MG CAP PO SCH (10:05)
[2021-10-26] MEDS: VITAMIN D 1,000 INTERNATIONAL UNITS TABLET PO SCH (10:06)
[2021-10-26] MEDS: DIGOXIN 0.125 MG TAB PO SCH (10:06)
[2021-10-26] MEDS: CARVedilol 3.125 MG TAB PO SCH ×2 (10:06→21:25)
[2021-10-26] MEDS: ENOXAPARIN 40MG/0.4ML SYRINGE (J1650 PER 10MG) SC SCH (10:07)
[2021-10-26 14:00] VITALS: BP 138/77
[2021-10-26] MEDS ORDERED: ISOVUE-370 76% 100ML VIAL As Ordered ONE (18:09)
[2021-10-26 22:00] VITALS: BP 144/80
[2021-10-27 00:38] LABS: APPEARANCE, URINE CLEAR (CLEAR); BACTERIA, URINE AUTO NEGATIVE (NEGATIVE); BILIRUBIN, URINE AUTO NEGATIVE (NEGATIVE); BLOOD, URINE BLOOD 1+ (NEGATIVE); COLOR, URINE YELLOW (YELLOW); GLUCOSE, URINE (UA) AUTO NEGATIVE (NEGATIVE); KETONE, URINE AUTO NEGATIVE (NEGATIVE); LEUKOCYTE ESTERASE, URINE AUTO NEGATIVE (NEGATIVE); NITRITE, URINE AUTO NEGATIVE (NEGATIVE); PROTEIN, URINE AUTO NEGATIVE (NEGATIVE); RBC, URINE AUTO 10 /HPF (0-3); SPECIFIC GRAVITY URINE AUTO 1.043 (1.002-1.035); SQUAMOUS EPITHELIAL CELL UR AU 1 /HPF (0-6); UROBILINOGEN, URINE AUTO 0.2 mg/dL (0.0-2.0); WBC, URINE AUTO 1 /HPF (0-3)
[2021-10-27 06:30] VITALS: BP 152/80
[2021-10-27 07:32] LABS: HEMOGLOBIN 12.7 g/dl (12.0-15.5); MEAN CORPUSCULAR HEMOGLOBIN 31.2 pg (27.0-33.0); MEAN CORPUSCULAR HGB CONC 32.6 g/dl (32.0-36.5); MEAN CORPUSCULAR VOLUME 95.8 fl (80.0-96.0); PLATELET COUNT, AUTOMATED 210 10^3/uL (150-450); RED BLOOD COUNT 4.07 10^6/uL (4.00-5.40); WHITE BLOOD COUNT 6.7 10^3/uL (4.0-10.0)
[2021-10-27 08:01] LABS: ALT/SGPT 17 U/L (12-78); BILIRUBIN,TOTAL 0.2 MG/DL (0.2-1.0); BLOOD UREA NITROGEN 13 MG/DL (7-18); CALCIUM LEVEL 8.8 MG/DL (8.8-10.2); CARBON DIOXIDE LEVEL 26 MEQ/L (21-32); CHLORIDE LEVEL 108 MEQ/L (98-107); CREATININE FOR GFR 0.64 MG/DL (0.55-1.30); GLOMERULAR FILTRATION RATE > 60.0 (>32); GLUCOSE, FASTING 105 MG/DL (70-100); POTASSIUM SERUM 3.4 MEQ/L (3.5-5.1); SODIUM LEVEL 142 MEQ/L (136-145); TOTAL PROTEIN 6.1 GM/DL (6.4-8.2)
[2021-10-27] MEDS: ATORVASTATIN 20 MG TAB PO SCH (08:31)
[2021-10-27] MEDS: PANTOPRAZOLE 40MG TAB (PROTONIX) PO SCH (08:31)
[2021-10-27] MEDS: ASPIRIN 325 MG TAB PO SCH (08:31)
[2021-10-27] MEDS: SPIRONOLACTONE 12.5MG PER 1/2 TABLET PO SCH (08:32)
[2021-10-27] MEDS: DIGOXIN 0.125 MG TAB PO SCH (08:32)
[2021-10-27] MEDS: VITAMIN D 1,000 INTERNATIONAL UNITS TABLET PO SCH (08:32)
[2021-10-27] MEDS: CARVedilol 3.125 MG TAB PO SCH ×2 (08:32→21:59)
[2021-10-27] MEDS: FLUoxetine 20 MG CAP PO SCH (08:32)
[2021-10-27] MEDS: ENOXAPARIN 40MG/0.4ML SYRINGE (J1650 PER 10MG) SC SCH (08:33)
[2021-10-27 14:00] VITALS: BP 148/72
[2021-10-28 06:00] VITALS: BP 137/90
[2021-10-28 08:05] LABS: HEMATOCRIT 41.7 % (36.0-47.0); HEMOGLOBIN 13.2 g/dl (12.0-15.5); MEAN CORPUSCULAR HEMOGLOBIN 30.8 pg (27.0-33.0); MEAN CORPUSCULAR HGB CONC 31.7 g/dl (32.0-36.5); MEAN CORPUSCULAR VOLUME 97.2 fl (80.0-96.0); PLATELET COUNT, AUTOMATED 202 10^3/uL (150-450); RED BLOOD COUNT 4.29 10^6/uL (4.00-5.40); WHITE BLOOD COUNT 8.8 10^3/uL (4.0-10.0)
[2021-10-28 08:33] LABS: ALBUMIN 3.1 GM/DL (3.2-5.2); ALT/SGPT 51 U/L (12-78); BILIRUBIN,TOTAL 0.4 MG/DL (0.2-1.0); BLOOD UREA NITROGEN 11 MG/DL (7-18); CALCIUM LEVEL 8.7 MG/DL (8.8-10.2); CARBON DIOXIDE LEVEL 24 MEQ/L (21-32); CHLORIDE LEVEL 108 MEQ/L (98-107); CREATININE FOR GFR 0.74 MG/DL (0.55-1.30); GLOMERULAR FILTRATION RATE > 60.0 (>32); GLUCOSE, FASTING 125 MG/DL (70-100); POTASSIUM SERUM 3.5 MEQ/L (3.5-5.1); SODIUM LEVEL 139 MEQ/L (136-145); TOTAL PROTEIN 6.3 GM/DL (6.4-8.2)
[2021-10-28] MEDS: FLUoxetine 20 MG CAP PO SCH (09:43)
[2021-10-28] MEDS: ASPIRIN 325 MG TAB PO SCH (09:43)
[2021-10-28] MEDS: ATORVASTATIN 20 MG TAB PO SCH (09:43)
[2021-10-28] MEDS: VITAMIN D 1,000 INTERNATIONAL UNITS TABLET PO SCH (09:43)
[2021-10-28] MEDS: SPIRONOLACTONE 12.5MG PER 1/2 TABLET PO SCH (09:43)
[2021-10-28] MEDS: PANTOPRAZOLE 40MG TAB (PROTONIX) PO SCH (09:43)
[2021-10-28] MEDS: ENOXAPARIN 40MG/0.4ML SYRINGE (J1650 PER 10MG) SC SCH (09:43)
[2021-10-28] MEDS: CARVedilol 3.125 MG TAB PO SCH ×2 (09:45→21:42)
[2021-10-28] MEDS: DIGOXIN 0.125 MG TAB PO SCH (09:46)
[2021-10-28 14:00] VITALS: BP 152/72
[2021-10-28] MEDS ORDERED: MIRALAX *UNIT DOSE* 17GM PACKET PO PRN (14:30)
[2021-10-28] MEDS: DOCUSATE SODIUM 100MG CAPSULE PO SCH (21:41)
[2021-10-28] MEDS: SENNA 8.6 MG TAB (SENOKOT) PO SCH (21:41)
[2021-10-28 21:50] VITALS: BP 140/67
[2021-10-29 06:23] LABS: HEMATOCRIT 37.3 % (36.0-47.0); HEMOGLOBIN 12.1 g/dl (12.0-15.5); MEAN CORPUSCULAR HEMOGLOBIN 30.6 pg (27.0-33.0); MEAN CORPUSCULAR HGB CONC 32.4 g/dl (32.0-36.5); MEAN CORPUSCULAR VOLUME 94.4 fl (80.0-96.0); PLATELET COUNT, AUTOMATED 182 10^3/uL (150-450); RED BLOOD COUNT 3.95 10^6/uL (4.00-5.40); WHITE BLOOD COUNT 6.7 10^3/uL (4.0-10.0)
[2021-10-29 06:34] VITALS: BP 128/70
[2021-10-29 06:57] LABS: ALBUMIN 2.9 GM/DL (3.2-5.2); ALT/SGPT 214 U/L (12-78); BILIRUBIN,TOTAL 0.8 MG/DL (0.2-1.0); BLOOD UREA NITROGEN 10 MG/DL (7-18); CALCIUM LEVEL 8.4 MG/DL (8.8-10.2); CARBON DIOXIDE LEVEL 26 MEQ/L (21-32); CHLORIDE LEVEL 108 MEQ/L (98-107); CREATININE FOR GFR 0.56 MG/DL (0.55-1.30); GLOMERULAR FILTRATION RATE > 60.0 (>32); GLUCOSE, FASTING 92 MG/DL (70-100); POTASSIUM SERUM 3.8 MEQ/L (3.5-5.1); SODIUM LEVEL 141 MEQ/L (136-145); TOTAL PROTEIN 5.8 GM/DL (6.4-8.2)
[2021-10-29] MEDS: VITAMIN D 1,000 INTERNATIONAL UNITS TABLET PO SCH (09:25)
[2021-10-29] MEDS: FLUoxetine 20 MG CAP PO SCH (09:25)
[2021-10-29] MEDS: DOCUSATE SODIUM 100MG CAPSULE PO SCH ×2 (09:25→20:06)
[2021-10-29] MEDS: ASPIRIN 325 MG TAB PO SCH (09:25)
[2021-10-29] MEDS: PANTOPRAZOLE 40MG TAB (PROTONIX) PO SCH (09:25)
[2021-10-29] MEDS: SPIRONOLACTONE 12.5MG PER 1/2 TABLET PO SCH (09:25)
[2021-10-29] MEDS: ENOXAPARIN 40MG/0.4ML SYRINGE (J1650 PER 10MG) SC SCH (09:26)
[2021-10-29] MEDS: DIGOXIN 0.125 MG TAB PO SCH (09:26)
[2021-10-29] MEDS: CARVedilol 3.125 MG TAB PO SCH ×2 (09:26→20:07)
[2021-10-29 14:00] VITALS: BP 127/67
[2021-10-29] MEDS: SENNA 8.6 MG TAB (SENOKOT) PO SCH (20:07)
[2021-10-29 22:00] VITALS: BP 153/83
[2021-10-30 06:00] VITALS: BP 151/82
[2021-10-30 07:13] LABS: HEMATOCRIT 40.2 % (36.0-47.0); HEMOGLOBIN 12.9 g/dl (12.0-15.5); MEAN CORPUSCULAR HEMOGLOBIN 30.3 pg (27.0-33.0); MEAN CORPUSCULAR HGB CONC 32.1 g/dl (32.0-36.5); MEAN CORPUSCULAR VOLUME 94.4 fl (80.0-96.0); PLATELET COUNT, AUTOMATED 213 10^3/uL (150-450); RED BLOOD COUNT 4.26 10^6/uL (4.00-5.40); WHITE BLOOD COUNT 6.4 10^3/uL (4.0-10.0)
[2021-10-30 07:37] LABS: ALBUMIN 2.9 GM/DL (3.2-5.2); ALT/SGPT 230 U/L (12-78); BILIRUBIN,TOTAL 1.2 MG/DL (0.2-1.0); BLOOD UREA NITROGEN 11 MG/DL (7-18); CALCIUM LEVEL 9.1 MG/DL (8.8-10.2); CARBON DIOXIDE LEVEL 27 MEQ/L (21-32); CHLORIDE LEVEL 107 MEQ/L (98-107); CREATININE FOR GFR 0.58 MG/DL (0.55-1.30); GLOMERULAR FILTRATION RATE > 60.0 (>32); GLUCOSE, FASTING 95 MG/DL (70-100); POTASSIUM SERUM 3.8 MEQ/L (3.5-5.1); SODIUM LEVEL 142 MEQ/L (136-145); TOTAL PROTEIN 6.2 GM/DL (6.4-8.2)
[2021-10-30] MEDS: ASPIRIN 325 MG TAB PO SCH (09:36)
[2021-10-30] MEDS: FLUoxetine 20 MG CAP PO SCH (09:36)
[2021-10-30] MEDS: DOCUSATE SODIUM 100MG CAPSULE PO SCH (09:36)
[2021-10-30] MEDS: PANTOPRAZOLE 40MG TAB (PROTONIX) PO SCH (09:36)
[2021-10-30] MEDS: SPIRONOLACTONE 12.5MG PER 1/2 TABLET PO SCH (09:36)
[2021-10-30] MEDS: ENOXAPARIN 40MG/0.4ML SYRINGE (J1650 PER 10MG) SC SCH (09:36)
[2021-10-30] MEDS: VITAMIN D 1,000 INTERNATIONAL UNITS TABLET PO SCH (09:36)
[2021-10-30 09:37] VITALS: BP 148/81
[2021-10-30] MEDS: CARVedilol 3.125 MG TAB PO SCH (09:37)
[2021-10-30] MEDS: DIGOXIN 0.125 MG TAB PO SCH (09:37)
[2021-10-30] MEDS ORDERED: LOVE1INJ SC (13:17)
[2021-10-30] MEDS ORDERED: SENN18TA PO (13:17)
[2021-10-30] MEDS ORDERED: ASPI-1 PO (13:17)
[2021-10-30] MEDS ORDERED: COLA100C5 PO (13:17)
[2021-10-30] MEDS ORDERED: MIRA1POW3 PO (13:17)
[2021-10-30] MEDS ORDERED: CARV3.12 PO (13:17)
[2021-10-30 14:00] VITALS: BP 154/83
[2021-11-01 16:10] LABS: ACETYLCHOLINE RCPTOR BLOCK AB 19 % (0-25); STRIATIONAL ANTIBODIES Negative (Neg:<1:40)
== END 2021-10-30 18:36 | DRG 123 ==
LOC: EDBD 18:45 → M ED 18:45 → M ED INP 23:10 → ENRESERV 10-25 10:52 → M MSPAV 10-25 11:10
PROVIDERS: ADMIT Internal Medicine; ATTEND Internal Medicine
DX: H49.22 Sixth [abducent] nerve palsy, left eye (principal); I50.32 Chronic diastolic (congestive) heart failure; H49.02 Third [oculomotor] nerve palsy, left eye; R51.9 Headache, unspecified; R11.0 Nausea; R62.7 Adult failure to thrive; I11.0 Hypertensive heart disease with heart failure; F32.A Depression, unspecified; I65.21 Occlusion and stenosis of right carotid artery; R53.1 Weakness; I65.01 Occlusion and stenosis of right vertebral artery; H02.401 Unspecified ptosis of right eyelid; R74.01 Elevation of levels of liver transaminase levels; K59.00 Constipation, unspecified; Z95.0 Presence of cardiac pacemaker; K21.9 Gastro-esophageal reflux disease without esophagitis; Z79.82 Long term (current) use of aspirin; Z79.899 Other long term (current) drug therapy; Z88.1 Allergy status to other antibiotic agents; Z20.822 Contact with and (suspected) exposure to COVID-19

== ENCOUNTER 2021-10-30 12:48 | Inpatient (IN) | payer MEDICARE, OTHER ==
[~2021-10-30] VITALS: Ht 149.9 cm; Wt 51.6 kg
[~2021-10-30 12:48] MED LIST changes: +ASPI81TA26 PO; +CYAN100050 PO; +D31000TA2 PO; -FLUO10CA16 PO; +FLUO10CA18 PO; -LISI-898 PO; +LISI5TAB11 PO; +SPIR-10 PO
[2021-10-30] MEDS ORDERED: COLA100C5 PO (13:17)
[2021-10-30] MEDS ORDERED: CARV3.12 PO (13:17)
[2021-10-30] MEDS ORDERED: MIRA1POW3 PO (13:17)
[2021-10-30] MEDS ORDERED: ASPI-1 PO (13:17)
[2021-10-30] MEDS ORDERED: LOVE1INJ SC (13:17)
[2021-10-30] MEDS ORDERED: SENN18TA PO (13:17)
[2021-10-30 18:44] VITALS: BP 153/85
[2021-10-30 20:34] VITALS: BP 176/85
[2021-10-30] MEDS: PANTOPRAZOLE 40MG TAB (PROTONIX) PO SCH (21:25)
[2021-10-30] MEDS: CARVedilol 3.125 MG TAB PO SCH (21:27)
[2021-10-30] MEDS: SENNA 8.6 MG TAB (SENOKOT) PO SCH (21:27)
[2021-10-30] MEDS: DOCUSATE SODIUM 100MG CAPSULE PO SCH (21:27)
[2021-10-30] MEDS: REMEDY PHYTOPLEX Z-GUARD PASTE 113GM TUBE (FROM STOREROOM PRODUCT) TOP SCH (21:30)
[2021-10-31 06:00] VITALS: BP 150/85
[2021-10-31 07:02] LABS: BASO % 0.5 % (0.0-1.0); EOS # 0.2 10^3/uL (0.0-0.5); EOS % 2.8 % (0.0-3.0); HEMOGLOBIN 12.9 g/dl (12.0-15.5); LYMPH # 1.2 10^3/uL (1.5-5.0); LYMPH % 19.1 % (24.0-44.0); MEAN CORPUSCULAR HEMOGLOBIN 31.2 pg (27.0-33.0); MEAN CORPUSCULAR HGB CONC 33.1 g/dl (32.0-36.5); MEAN CORPUSCULAR VOLUME 94.2 fl (80.0-96.0); MONO # 0.7 10^3/uL (0.0-0.8); MONO % 11.4 % (2.0-8.0); NEUTROPHILS % 65.4 % (36.0-66.0); PLATELET COUNT, AUTOMATED 198 10^3/uL (150-450); RED BLOOD COUNT 4.14 10^6/uL (4.00-5.40); WHITE BLOOD COUNT 6.1 10^3/uL (4.0-10.0)
[2021-10-31 07:26] LABS: ALBUMIN 2.7 GM/DL (3.2-5.2); ALT/SGPT 200 U/L (12-78); BILIRUBIN,TOTAL 0.9 MG/DL (0.2-1.0); BLOOD UREA NITROGEN 12 MG/DL (7-18); CARBON DIOXIDE LEVEL 26 MEQ/L (21-32); CHLORIDE LEVEL 107 MEQ/L (98-107); CREATININE FOR GFR 0.56 MG/DL (0.55-1.30); GLOMERULAR FILTRATION RATE > 60.0 (>32); GLUCOSE, FASTING 107 MG/DL (70-100); POTASSIUM SERUM 3.7 MEQ/L (3.5-5.1); SODIUM LEVEL 140 MEQ/L (136-145); TOTAL PROTEIN 6.4 GM/DL (6.4-8.2)
[2021-10-31] MEDS: VITAMIN D 1,000 INTERNATIONAL UNITS TABLET PO SCH (08:59)
[2021-10-31] MEDS: CARVedilol 3.125 MG TAB PO SCH ×2 (08:59→20:16)
[2021-10-31] MEDS: DIGOXIN 0.125 MG TAB PO SCH (08:59)
[2021-10-31] MEDS: CYANOCOBALAMIN 500 MCG TAB PO SCH (08:59)
[2021-10-31] MEDS: FLUoxetine 20 MG CAP PO SCH (09:00)
[2021-10-31] MEDS: ASPIRIN ENTERIC 325 MG TAB PO SCH (09:00)
[2021-10-31] MEDS: DOCUSATE SODIUM 100MG CAPSULE PO SCH ×2 (09:00→20:15)
[2021-10-31] MEDS: ENOXAPARIN 40MG/0.4ML SYRINGE (J1650 PER 10MG) SC SCH (09:00)
[2021-10-31] MEDS: PANTOPRAZOLE 40MG TAB (PROTONIX) PO SCH ×2 (09:00→20:15)
[2021-10-31] MEDS: SPIRONOLACTONE 12.5MG PER 1/2 TABLET PO SCH (09:00)
[2021-10-31] MEDS: REMEDY PHYTOPLEX Z-GUARD PASTE 113GM TUBE (FROM STOREROOM PRODUCT) TOP SCH ×3 (09:02→21:00)
[2021-10-31 14:00] VITALS: BP 145/82
[2021-10-31 20:00] VITALS: BP 147/80
[2021-10-31] MEDS: SENNA 8.6 MG TAB (SENOKOT) PO SCH (20:15)
[2021-11-01 06:00] VITALS: BP 140/85
[2021-11-01] MEDS: DOCUSATE SODIUM 100MG CAPSULE PO SCH ×2 (07:17→20:24)
[2021-11-01] MEDS: PANTOPRAZOLE 40MG TAB (PROTONIX) PO SCH ×2 (07:31→20:23)
[2021-11-01] MEDS: ENOXAPARIN 40MG/0.4ML SYRINGE (J1650 PER 10MG) SC SCH (07:32)
[2021-11-01] MEDS: CYANOCOBALAMIN 500 MCG TAB PO SCH (07:32)
[2021-11-01] MEDS: CARVedilol 3.125 MG TAB PO SCH ×2 (07:32→20:23)
[2021-11-01] MEDS: VITAMIN D 1,000 INTERNATIONAL UNITS TABLET PO SCH (07:32)
[2021-11-01] MEDS: DIGOXIN 0.125 MG TAB PO SCH (07:32)
[2021-11-01] MEDS: SPIRONOLACTONE 12.5MG PER 1/2 TABLET PO SCH (07:32)
[2021-11-01] MEDS: ASPIRIN ENTERIC 325 MG TAB PO SCH (07:32)
[2021-11-01] MEDS: FLUoxetine 20 MG CAP PO SCH (07:33)
[2021-11-01] MEDS: REMEDY PHYTOPLEX Z-GUARD PASTE 113GM TUBE (FROM STOREROOM PRODUCT) TOP SCH ×3 (07:33→20:25)
[2021-11-01] MEDS: COMBIVENT RESPIMAT 100-20MCG INHALER 4GM INH SCH ×3 (11:47→21:48)
[2021-11-01 12:56] LABS: BASO % 0.4 % (0.0-1.0); EOS # 0.1 10^3/uL (0.0-0.5); HEMATOCRIT 44.2 % (36.0-47.0); HEMOGLOBIN 14.3 g/dl (12.0-15.5); LYMPH # 1.6 10^3/uL (1.5-5.0); LYMPH % 21.9 % (24.0-44.0); MEAN CORPUSCULAR HEMOGLOBIN 30.8 pg (27.0-33.0); MEAN CORPUSCULAR HGB CONC 32.4 g/dl (32.0-36.5); MEAN CORPUSCULAR VOLUME 95.1 fl (80.0-96.0); MONO # 0.8 10^3/uL (0.0-0.8); MONO % 10.9 % (2.0-8.0); NEUTROPHILS # 4.6 10^3/uL (1.5-8.5); PLATELET COUNT, AUTOMATED 272 10^3/uL (150-450); RED BLOOD COUNT 4.65 10^6/uL (4.00-5.40); WHITE BLOOD COUNT 7.1 10^3/uL (4.0-10.0)
[2021-11-01 14:00] VITALS: BP 147/70
[2021-11-01 20:02] VITALS: BP 145/74
[2021-11-01] MEDS: SENNA 8.6 MG TAB (SENOKOT) PO SCH (20:24)
[2021-11-02 05:59] VITALS: BP 133/71
[2021-11-02 07:31] LABS: BASO % 0.6 % (0.0-1.0); EOS # 0.1 10^3/uL (0.0-0.5); EOS % 1.9 % (0.0-3.0); HEMATOCRIT 38.3 % (36.0-47.0); HEMOGLOBIN 12.4 g/dl (12.0-15.5); LYMPH # 1.5 10^3/uL (1.5-5.0); LYMPH % 21.5 % (24.0-44.0); MEAN CORPUSCULAR HEMOGLOBIN 30.6 pg (27.0-33.0); MEAN CORPUSCULAR HGB CONC 32.4 g/dl (32.0-36.5); MEAN CORPUSCULAR VOLUME 94.6 fl (80.0-96.0); MONO # 0.8 10^3/uL (0.0-0.8); NEUTROPHILS # 4.4 10^3/uL (1.5-8.5); PLATELET COUNT, AUTOMATED 210 10^3/uL (150-450); RED BLOOD COUNT 4.05 10^6/uL (4.00-5.40)
[2021-11-02 07:50] LABS: BLOOD UREA NITROGEN 11 MG/DL (7-18); CALCIUM LEVEL 8.9 MG/DL (8.8-10.2); CARBON DIOXIDE LEVEL 30 MEQ/L (21-32); CHLORIDE LEVEL 104 MEQ/L (98-107); CREATININE FOR GFR 0.63 MG/DL (0.55-1.30); GLOMERULAR FILTRATION RATE > 60.0 (>32); GLUCOSE, FASTING 97 MG/DL (70-100); SODIUM LEVEL 140 MEQ/L (136-145)
[2021-11-02] MEDS: COMBIVENT RESPIMAT 100-20MCG INHALER 4GM INH SCH ×3 (08:00→20:00)
[2021-11-02] MEDS: FLUoxetine 20 MG CAP PO SCH (09:00)
[2021-11-02] MEDS: REMEDY PHYTOPLEX Z-GUARD PASTE 113GM TUBE (FROM STOREROOM PRODUCT) TOP SCH ×3 (09:00→21:47)
[2021-11-02] MEDS: ASPIRIN ENTERIC 325 MG TAB PO SCH (10:20)
[2021-11-02] MEDS: VITAMIN D 1,000 INTERNATIONAL UNITS TABLET PO SCH (10:20)
[2021-11-02] MEDS: SPIRONOLACTONE 12.5MG PER 1/2 TABLET PO SCH (10:20)
[2021-11-02] MEDS: DIGOXIN 0.125 MG TAB PO SCH (10:21)
[2021-11-02] MEDS: PANTOPRAZOLE 40MG TAB (PROTONIX) PO SCH ×2 (10:21→21:43)
[2021-11-02] MEDS: ENOXAPARIN 40MG/0.4ML SYRINGE (J1650 PER 10MG) SC SCH (10:22)
[2021-11-02] MEDS: CYANOCOBALAMIN 500 MCG TAB PO SCH (10:22)
[2021-11-02] MEDS: CARVedilol 3.125 MG TAB PO SCH ×2 (10:23→21:43)
[2021-11-02] MEDS: DOCUSATE SODIUM 100MG CAPSULE PO SCH ×2 (10:28→21:43)
[2021-11-02 14:00] VITALS: BP 160/82
[2021-11-02 20:00] VITALS: BP 147/73
[2021-11-02] MEDS: SENNA 8.6 MG TAB (SENOKOT) PO SCH (21:43)
[2021-11-03 06:00] VITALS: BP 160/92
[2021-11-03] MEDS: ASPIRIN ENTERIC 325 MG TAB PO SCH (07:27)
[2021-11-03] MEDS: VITAMIN D 1,000 INTERNATIONAL UNITS TABLET PO SCH (07:27)
[2021-11-03] MEDS: SPIRONOLACTONE 12.5MG PER 1/2 TABLET PO SCH (07:27)
[2021-11-03] MEDS: ENOXAPARIN 40MG/0.4ML SYRINGE (J1650 PER 10MG) SC SCH (07:27)
[2021-11-03] MEDS: CARVedilol 3.125 MG TAB PO SCH ×2 (07:27→20:56)
[2021-11-03] MEDS: PANTOPRAZOLE 40MG TAB (PROTONIX) PO SCH ×2 (07:27→20:56)
[2021-11-03] MEDS: DIGOXIN 0.125 MG TAB PO SCH (07:28)
[2021-11-03] MEDS: CYANOCOBALAMIN 500 MCG TAB PO SCH (07:28)
[2021-11-03] MEDS: REMEDY PHYTOPLEX Z-GUARD PASTE 113GM TUBE (FROM STOREROOM PRODUCT) TOP SCH ×3 (07:29→20:57)
[2021-11-03] MEDS: FLUoxetine 20 MG CAP PO SCH (07:29)
[2021-11-03] MEDS: DOCUSATE SODIUM 100MG CAPSULE PO SCH ×2 (07:29→20:57)
[2021-11-03] MEDS: COMBIVENT RESPIMAT 100-20MCG INHALER 4GM INH SCH ×3 (07:58→19:54)
[2021-11-03 13:41] VITALS: BP 143/72
[2021-11-03 20:00] VITALS: BP 145/72
[2021-11-03] MEDS: SENNA 8.6 MG TAB (SENOKOT) PO SCH (20:57)
[2021-11-04 06:00] VITALS: BP 129/80
[2021-11-04] MEDS: COMBIVENT RESPIMAT 100-20MCG INHALER 4GM INH SCH ×3 (08:00→18:45)
[2021-11-04] MEDS: ASPIRIN ENTERIC 325 MG TAB PO SCH (08:41)
[2021-11-04] MEDS: VITAMIN D 1,000 INTERNATIONAL UNITS TABLET PO SCH (08:41)
[2021-11-04] MEDS: SPIRONOLACTONE 12.5MG PER 1/2 TABLET PO SCH (08:41)
[2021-11-04] MEDS: PANTOPRAZOLE 40MG TAB (PROTONIX) PO SCH ×2 (08:41→20:03)
[2021-11-04] MEDS: CARVedilol 3.125 MG TAB PO SCH ×2 (08:42→20:03)
[2021-11-04] MEDS: DIGOXIN 0.125 MG TAB PO SCH (08:42)
[2021-11-04] MEDS: FLUoxetine 20 MG CAP PO SCH (08:43)
[2021-11-04] MEDS: CYANOCOBALAMIN 500 MCG TAB PO SCH (08:43)
[2021-11-04] MEDS: DOCUSATE SODIUM 100MG CAPSULE PO SCH ×2 (08:44→20:04)
[2021-11-04] MEDS: REMEDY PHYTOPLEX Z-GUARD PASTE 113GM TUBE (FROM STOREROOM PRODUCT) TOP SCH ×3 (08:44→20:03)
[2021-11-04] MEDS: ENOXAPARIN 40MG/0.4ML SYRINGE (J1650 PER 10MG) SC SCH (08:44)
[2021-11-04 14:00] VITALS: BP 146/77
[2021-11-04 20:00] VITALS: BP 127/75
[2021-11-04] MEDS: SENNA 8.6 MG TAB (SENOKOT) PO SCH (20:04)
[2021-11-05 06:00] VITALS: BP 139/74
[2021-11-05 06:15] LABS: BASO % 0.4 % (0.0-1.0); EOS # 0.1 10^3/uL (0.0-0.5); EOS % 1.1 % (0.0-3.0); HEMATOCRIT 40.7 % (36.0-47.0); HEMOGLOBIN 13.1 g/dl (12.0-15.5); LYMPH # 1.6 10^3/uL (1.5-5.0); LYMPH % 19.9 % (24.0-44.0); MEAN CORPUSCULAR HEMOGLOBIN 30.7 pg (27.0-33.0); MEAN CORPUSCULAR HGB CONC 32.2 g/dl (32.0-36.5); MEAN CORPUSCULAR VOLUME 95.3 fl (80.0-96.0); MONO # 0.9 10^3/uL (0.0-0.8); MONO % 10.6 % (2.0-8.0); NEUTROPHILS # 5.4 10^3/uL (1.5-8.5); NEUTROPHILS % 67.3 % (36.0-66.0); PLATELET COUNT, AUTOMATED 274 10^3/uL (150-450); RED BLOOD COUNT 4.27 10^6/uL (4.00-5.40)
[2021-11-05 06:34] LABS: BLOOD UREA NITROGEN 17 MG/DL (7-18); CALCIUM LEVEL 9.4 MG/DL (8.8-10.2); CARBON DIOXIDE LEVEL 28 MEQ/L (21-32); CHLORIDE LEVEL 104 MEQ/L (98-107); CREATININE FOR GFR 0.78 MG/DL (0.55-1.30); GLOMERULAR FILTRATION RATE > 60.0 (>32); GLUCOSE, FASTING 108 MG/DL (70-100); POTASSIUM SERUM 4.1 MEQ/L (3.5-5.1); SODIUM LEVEL 139 MEQ/L (136-145)
[2021-11-05] MEDS: COMBIVENT RESPIMAT 100-20MCG INHALER 4GM INH SCH ×3 (08:00→20:00)
[2021-11-05] MEDS: REMEDY PHYTOPLEX Z-GUARD PASTE 113GM TUBE (FROM STOREROOM PRODUCT) TOP SCH ×3 (09:00→20:09)
[2021-11-05] MEDS: DOCUSATE SODIUM 100MG CAPSULE PO SCH ×2 (09:00→20:07)
[2021-11-05] MEDS: ENOXAPARIN 40MG/0.4ML SYRINGE (J1650 PER 10MG) SC SCH (09:03)
[2021-11-05] MEDS: CYANOCOBALAMIN 500 MCG TAB PO SCH (09:04)
[2021-11-05] MEDS: FLUoxetine 20 MG CAP PO SCH (09:04)
[2021-11-05] MEDS: DIGOXIN 0.125 MG TAB PO SCH (09:04)
[2021-11-05] MEDS: ASPIRIN ENTERIC 325 MG TAB PO SCH (09:04)
[2021-11-05] MEDS: PANTOPRAZOLE 40MG TAB (PROTONIX) PO SCH ×2 (09:04→20:08)
[2021-11-05] MEDS: SPIRONOLACTONE 12.5MG PER 1/2 TABLET PO SCH (09:05)
[2021-11-05] MEDS: CARVedilol 3.125 MG TAB PO SCH ×2 (09:05→20:08)
[2021-11-05] MEDS: VITAMIN D 1,000 INTERNATIONAL UNITS TABLET PO SCH (09:06)
[2021-11-05] MEDS: ACETAMINOPHEN TAB 650MG DOSE (2X325MG) PO PRN (13:27)
[2021-11-05 14:00] VITALS: BP 125/62
[2021-11-05 20:00] VITALS: BP 119/71
[2021-11-05] MEDS: SENNA 8.6 MG TAB (SENOKOT) PO SCH (20:07)
[2021-11-05] MEDS: DICLOFENAC EPOLAMINE 1.3 % PATCH TOP SCH (20:08)
[2021-11-06 06:00] VITALS: BP 156/75
[2021-11-06] MEDS: COMBIVENT RESPIMAT 100-20MCG INHALER 4GM INH SCH ×3 (07:20→21:39)
[2021-11-06] MEDS: CARVedilol 3.125 MG TAB PO SCH ×2 (08:56→20:04)
[2021-11-06] MEDS: SPIRONOLACTONE 12.5MG PER 1/2 TABLET PO SCH (08:56)
[2021-11-06] MEDS: ASPIRIN ENTERIC 325 MG TAB PO SCH (08:56)
[2021-11-06] MEDS: CYANOCOBALAMIN 500 MCG TAB PO SCH (08:57)
[2021-11-06] MEDS: DIGOXIN 0.125 MG TAB PO SCH (08:57)
[2021-11-06] MEDS: VITAMIN D 1,000 INTERNATIONAL UNITS TABLET PO SCH (08:57)
[2021-11-06] MEDS: ENOXAPARIN 40MG/0.4ML SYRINGE (J1650 PER 10MG) SC SCH (08:57)
[2021-11-06] MEDS: PANTOPRAZOLE 40MG TAB (PROTONIX) PO SCH ×2 (08:57→20:03)
[2021-11-06] MEDS: FLUoxetine 20 MG CAP PO SCH (08:57)
[2021-11-06] MEDS: DICLOFENAC EPOLAMINE 1.3 % PATCH TOP SCH ×2 (08:58→20:03)
[2021-11-06] MEDS: REMEDY PHYTOPLEX Z-GUARD PASTE 113GM TUBE (FROM STOREROOM PRODUCT) TOP SCH ×3 (08:58→20:05)
[2021-11-06] MEDS: DOCUSATE SODIUM 100MG CAPSULE PO SCH ×2 (09:00→20:03)
[2021-11-06] MEDS: LIDOCAINE 5% (LIDODERM) PATCH TD SCH (13:00)
[2021-11-06 14:00] VITALS: BP 137/86
[2021-11-06 19:43] VITALS: BP 175/72
[2021-11-06 20:00] VITALS: BP 138/64
[2021-11-06] MEDS: SENNA 8.6 MG TAB (SENOKOT) PO SCH (20:03)
[2021-11-07 05:35] VITALS: BP 134/74
[2021-11-07] MEDS: COMBIVENT RESPIMAT 100-20MCG INHALER 4GM INH SCH ×3 (07:23→19:28)
[2021-11-07] MEDS: ENOXAPARIN 40MG/0.4ML SYRINGE (J1650 PER 10MG) SC SCH (07:52)
[2021-11-07] MEDS: ASPIRIN ENTERIC 325 MG TAB PO SCH (07:53)
[2021-11-07] MEDS: CARVedilol 3.125 MG TAB PO SCH ×2 (07:54→20:43)
[2021-11-07] MEDS: CYANOCOBALAMIN 500 MCG TAB PO SCH (07:54)
[2021-11-07] MEDS: SPIRONOLACTONE 12.5MG PER 1/2 TABLET PO SCH (07:54)
[2021-11-07] MEDS: PANTOPRAZOLE 40MG TAB (PROTONIX) PO SCH ×2 (07:54→20:42)
[2021-11-07] MEDS: DOCUSATE SODIUM 100MG CAPSULE PO SCH ×2 (07:54→20:43)
[2021-11-07] MEDS: VITAMIN D 1,000 INTERNATIONAL UNITS TABLET PO SCH (07:54)
[2021-11-07] MEDS: DICLOFENAC EPOLAMINE 1.3 % PATCH TOP SCH ×2 (07:55→20:43)
[2021-11-07] MEDS: LIDOCAINE 5% (LIDODERM) PATCH TD SCH (07:55)
[2021-11-07] MEDS: FLUoxetine 20 MG CAP PO SCH (07:56)
[2021-11-07] MEDS: ACETAMINOPHEN TAB 650MG DOSE (2X325MG) PO PRN ×3 (07:56→13:07)
[2021-11-07] MEDS: DIGOXIN 0.125 MG TAB PO SCH (07:56)
[2021-11-07] MEDS: REMEDY PHYTOPLEX Z-GUARD PASTE 113GM TUBE (FROM STOREROOM PRODUCT) TOP SCH ×3 (07:57→20:44)
[2021-11-07 09:19] LABS: BASO # 0.1 10^3/uL (0.0-0.2); BASO % 0.7 % (0.0-1.0); EOS # 0.1 10^3/uL (0.0-0.5); EOS % 1.8 % (0.0-3.0); HEMATOCRIT 44.3 % (36.0-47.0); HEMOGLOBIN 14.1 g/dl (12.0-15.5); LYMPH # 1.5 10^3/uL (1.5-5.0); LYMPH % 20.7 % (24.0-44.0); MEAN CORPUSCULAR HEMOGLOBIN 30.4 pg (27.0-33.0); MEAN CORPUSCULAR HGB CONC 31.8 g/dl (32.0-36.5); MEAN CORPUSCULAR VOLUME 95.5 fl (80.0-96.0); MONO # 0.7 10^3/uL (0.0-0.8); MONO % 9.7 % (2.0-8.0); NEUTROPHILS # 4.7 10^3/uL (1.5-8.5); PLATELET COUNT, AUTOMATED 344 10^3/uL (150-450); RED BLOOD COUNT 4.64 10^6/uL (4.00-5.40); WHITE BLOOD COUNT 7.2 10^3/uL (4.0-10.0)
[2021-11-07 09:39] LABS: BLOOD UREA NITROGEN 16 MG/DL (7-18); CALCIUM LEVEL 10.2 MG/DL (8.8-10.2); CARBON DIOXIDE LEVEL 31 MEQ/L (21-32); CHLORIDE LEVEL 101 MEQ/L (98-107); CREATININE FOR GFR 0.82 MG/DL (0.55-1.30); GLOMERULAR FILTRATION RATE > 60.0 (>32); GLUCOSE, FASTING 103 MG/DL (70-100); POTASSIUM SERUM 4.2 MEQ/L (3.5-5.1); SODIUM LEVEL 138 MEQ/L (136-145)
[2021-11-07 15:00] VITALS: BP 139/66
[2021-11-07 20:00] VITALS: BP 126/75
[2021-11-07] MEDS: SENNA 8.6 MG TAB (SENOKOT) PO SCH (20:43)
[2021-11-08 05:57] VITALS: BP 157/90
[2021-11-08] MEDS: COMBIVENT RESPIMAT 100-20MCG INHALER 4GM INH SCH ×3 (07:23→20:00)
[2021-11-08] MEDS: ASPIRIN ENTERIC 325 MG TAB PO SCH (08:09)
[2021-11-08] MEDS: SPIRONOLACTONE 12.5MG PER 1/2 TABLET PO SCH (08:09)
[2021-11-08] MEDS: FLUoxetine 20 MG CAP PO SCH (08:10)
[2021-11-08] MEDS: VITAMIN D 1,000 INTERNATIONAL UNITS TABLET PO SCH (08:10)
[2021-11-08] MEDS: CARVedilol 3.125 MG TAB PO SCH ×2 (08:10→20:06)
[2021-11-08] MEDS: DIGOXIN 0.125 MG TAB PO SCH (08:10)
[2021-11-08] MEDS: CYANOCOBALAMIN 500 MCG TAB PO SCH (08:10)
[2021-11-08] MEDS: DOCUSATE SODIUM 100MG CAPSULE PO SCH ×2 (08:11→20:07)
[2021-11-08] MEDS: PANTOPRAZOLE 40MG TAB (PROTONIX) PO SCH ×2 (08:11→20:06)
[2021-11-08] MEDS: ENOXAPARIN 40MG/0.4ML SYRINGE (J1650 PER 10MG) SC SCH (08:12)
[2021-11-08] MEDS: DICLOFENAC EPOLAMINE 1.3 % PATCH TOP SCH ×2 (08:13→20:06)
[2021-11-08] MEDS: LIDOCAINE 5% (LIDODERM) PATCH TD SCH (08:13)
[2021-11-08] MEDS: REMEDY PHYTOPLEX Z-GUARD PASTE 113GM TUBE (FROM STOREROOM PRODUCT) TOP SCH ×3 (08:14→20:08)
[2021-11-08] MEDS: amLODIPine 5 MG TAB PO SCH (11:49)
[2021-11-08 14:00] VITALS: BP 142/78
[2021-11-08] MEDS: ACETAMINOPHEN TAB 650MG DOSE (2X325MG) PO PRN (16:03)
[2021-11-08 20:00] VITALS: BP 123/71
[2021-11-08] MEDS: SENNA 8.6 MG TAB (SENOKOT) PO SCH (20:07)
[2021-11-09 06:00] VITALS: BP 140/76
[2021-11-09] MEDS: COMBIVENT RESPIMAT 100-20MCG INHALER 4GM INH SCH (07:28)
[2021-11-09] MEDS: SPIRONOLACTONE 12.5MG PER 1/2 TABLET PO SCH (07:35)
[2021-11-09] MEDS: DOCUSATE SODIUM 100MG CAPSULE PO SCH (07:35)
[2021-11-09 07:36] VITALS: BP 140/76
[2021-11-09] MEDS: ASPIRIN ENTERIC 325 MG TAB PO SCH (07:36)
[2021-11-09] MEDS: CARVedilol 3.125 MG TAB PO SCH (07:36)
[2021-11-09] MEDS: DIGOXIN 0.125 MG TAB PO SCH (07:36)
[2021-11-09] MEDS: FLUoxetine 20 MG CAP PO SCH (07:36)
[2021-11-09] MEDS: amLODIPine 5 MG TAB PO SCH (07:37)
[2021-11-09] MEDS: VITAMIN D 1,000 INTERNATIONAL UNITS TABLET PO SCH (07:37)
[2021-11-09] MEDS: CYANOCOBALAMIN 500 MCG TAB PO SCH (07:37)
[2021-11-09] MEDS: PANTOPRAZOLE 40MG TAB (PROTONIX) PO SCH (07:37)
[2021-11-09] MEDS: LIDOCAINE 5% (LIDODERM) PATCH TD SCH (07:38)
[2021-11-09] MEDS: ENOXAPARIN 40MG/0.4ML SYRINGE (J1650 PER 10MG) SC SCH (07:38)
[2021-11-09] MEDS: REMEDY PHYTOPLEX Z-GUARD PASTE 113GM TUBE (FROM STOREROOM PRODUCT) TOP SCH (07:39)
[2021-11-09] MEDS: DICLOFENAC EPOLAMINE 1.3 % PATCH TOP SCH (07:39)
[2021-11-09] MEDS ORDERED: SPIR-10 PO (08:37)
[2021-11-09] MEDS ORDERED: AMLO1TAB24 PO (08:37)
[2021-11-09] MEDS ORDERED: ASPI-1 PO (08:37)
[2021-11-09] MEDS ORDERED: PANT40TA29 PO (08:37)
[2021-11-09] MEDS ORDERED: CARV3.12 PO (08:37)
[2021-11-09] MEDS ORDERED: DIGO0.123 PO (08:37)
[2021-11-09] MEDS ORDERED: FLUO10CA18 PO (08:37)
== END 2021-11-09 13:10 | disposition home health service (06) | DRG 123 ==
LOC: M PM&R 18:30
PROVIDERS: ADMIT Physical Medicine & Rehabilitation; ATTEND Physical Medicine & Rehabilitation
DX: H49.22 Sixth [abducent] nerve palsy, left eye (principal); I50.32 Chronic diastolic (congestive) heart failure; H49.02 Third [oculomotor] nerve palsy, left eye; R53.1 Weakness; I11.0 Hypertensive heart disease with heart failure; K21.9 Gastro-esophageal reflux disease without esophagitis; E78.5 Hyperlipidemia, unspecified; F32.A Depression, unspecified; M76.30 Iliotibial band syndrome, unspecified leg; I48.91 Unspecified atrial fibrillation; R26.89 Other abnormalities of gait and mobility; H02.402 Unspecified ptosis of left eyelid; Z95.0 Presence of cardiac pacemaker; Z88.1 Allergy status to other antibiotic agents; Z74.09 Other reduced mobility; Z74.1 Need for assistance with personal care; Z86.73 Personal history of transient ischemic attack (TIA), and cerebral infarction without residual deficits; Z79.82 Long term (current) use of aspirin; Z79.899 Other long term (current) drug therapy; Z88.8 Allergy status to other drugs, medicaments and biological substances

== ENCOUNTER 2022-01-04 22:10 | Inpatient (IN) | payer MEDICARE, OTHER ==
[~2022-01-04 22:10] MED LIST changes: +AMLO1TAB24 PO; +ASPI-1 PO; +CARV3.12 PO; +COLA100C5 PO; -D31000TA2 PO; +LOVE1INJ SC; +MIRA1POW3 PO; +SENN18TA PO; +VITA100093 PO
[2022-01-04] MEDS ORDERED: NS 500 ML IV ONE (23:20)
[2022-01-05] VITALS (7 sets, daily range): BP systolic 104–125; BP diastolic 54–70
[2022-01-05 00:31] LABS: BASO # 0.1 10^3/uL (0.0-0.2); BASO % 0.3 % (0.0-1.0); EOS % 0.1 % (0.0-3.0); HEMOGLOBIN 14.2 g/dl (12.0-15.5); LYMPH # 0.5 10^3/uL (1.5-5.0); LYMPH % 3.1 % (24.0-44.0); MEAN CORPUSCULAR HEMOGLOBIN 30.1 pg (27.0-33.0); MEAN CORPUSCULAR VOLUME 91.3 fl (80.0-96.0); MONO # 0.9 10^3/uL (0.0-0.8); MONO % 5.8 % (2.0-8.0); NEUTROPHILS # 13.6 10^3/uL (1.5-8.5); NEUTROPHILS % 89.6 % (36.0-66.0); PLATELET COUNT, AUTOMATED 218 10^3/uL (150-450); RED BLOOD COUNT 4.71 10^6/uL (4.00-5.40); WHITE BLOOD COUNT 15.2 10^3/uL (4.0-10.0)
[2022-01-05 00:57] LABS: CK-MB VALUE MASS < 1.0 NG/ML (<3.6); CPK CREATINE PHOSPHOKINASE 62 U/L (26-192); MB/CK RELATIVE INDEX 1.61 (< OR =4)
[2022-01-05 01:17] LABS: ALBUMIN 2.9 GM/DL (3.2-5.2); ALT/SGPT 26 U/L (12-78); BILIRUBIN,DIRECT < 0.1 MG/DL (0.0-0.2); BILIRUBIN,TOTAL 0.4 MG/DL (0.2-1.0); BLOOD UREA NITROGEN 22 MG/DL (7-18); CALCIUM LEVEL 8.5 MG/DL (8.8-10.2); CARBON DIOXIDE LEVEL 24 MEQ/L (21-32); CHLORIDE LEVEL 110 MEQ/L (98-107); CREATININE FOR GFR 0.76 MG/DL (0.55-1.30); GLOMERULAR FILTRATION RATE > 60.0 (>32); GLUCOSE, FASTING 105 MG/DL (70-100); LIPASE 121 U/L (73-393); POTASSIUM SERUM 4.1 MEQ/L (3.5-5.1); SODIUM LEVEL 142 MEQ/L (136-145); TOTAL PROTEIN 5.8 GM/DL (6.4-8.2)
[2022-01-05] MEDS ORDERED: cefTRIAXone SOD 1 GM in D5W MINI-BAG PLUS 50 ML IV ONE (01:55)
[2022-01-05 03:48] LABS: CK-MB VALUE MASS 1.1 NG/ML (<3.6); MB/CK RELATIVE INDEX 1.75 (< OR =4)
[2022-01-05] MEDS ORDERED: TAMSULOSIN 0.4 MG CAP PO ONE (04:25)
[2022-01-05 04:29] LABS: RSV AMPLIFICATION NEGATIVE (NEGATIVE)
[2022-01-05] MEDS ORDERED: CARV3.12 PO (05:07)
[2022-01-05] MEDS ORDERED: SPIR-10 PO (05:07)
[2022-01-05] MEDS ORDERED: BAYE325T13 PO (05:07)
[2022-01-05] MEDS ORDERED: FLUO10CA18 PO (05:07)
[2022-01-05] MEDS ORDERED: AMLO1TAB24 PO (05:07)
[2022-01-05] MEDS ORDERED: DIGO0.127 PO (05:07)
[2022-01-05] MEDS ORDERED: PANT-23 PO (05:07)
[2022-01-05] MEDS ORDERED: HOME MED LIST COMPLETE! XX SCH (05:10)
[2022-01-05] MEDS ORDERED: NS 1,000 ML IV SCH (05:15)
[2022-01-05] MEDS ORDERED: ONDANSETRON 4MG/2ML VIAL IV PRN ×2 (05:45→12:00)
[2022-01-05] MEDS ORDERED: ACETAMINOPHEN TAB 650MG DOSE (2X325MG) PO PRN (06:00)
[2022-01-05 07:30] LABS: VENOUS BASE EXCESS 2.2 (-2.0-2.0); VENOUS HCO3 28.1 MEQ/L (23.0-27.0); VENOUS O2 SATURATION 85.1 % (60.0-80.0); VENOUS PARTIAL PRESSURE CO2 48.7 mmHg (38.0-50.0); VENOUS PARTIAL PRESSURE O2 51.8 mmHg (30.0-50.0); VENOUS PH 7.379 UNITS (7.330-7.430); VENOUS STANDARD HCO3 26.1 MEQ/L; VENOUS TOTAL CO2 29.6 MEQ/L (24.0-28.0)
[2022-01-05 07:39] LABS: BASO % 0.2 % (0.0-1.0); EOS % 0.2 % (0.0-3.0); HEMATOCRIT 37.2 % (36.0-47.0); HEMOGLOBIN 12.3 g/dl (12.0-15.5); LYMPH % 6.2 % (24.0-44.0); MEAN CORPUSCULAR HEMOGLOBIN 30.4 pg (27.0-33.0); MEAN CORPUSCULAR HGB CONC 33.1 g/dl (32.0-36.5); MEAN CORPUSCULAR VOLUME 91.9 fl (80.0-96.0); MONO # 0.9 10^3/uL (0.0-0.8); MONO % 5.7 % (2.0-8.0); NEUTROPHILS # 14.4 10^3/uL (1.5-8.5); PLATELET COUNT, AUTOMATED 199 10^3/uL (150-450); RED BLOOD COUNT 4.05 10^6/uL (4.00-5.40); WHITE BLOOD COUNT 16.6 10^3/uL (4.0-10.0)
[2022-01-05] MEDS: VITAMIN D 1,000 INTERNATIONAL UNITS TABLET PO SCH (08:05)
[2022-01-05] MEDS: FLUoxetine 20 MG CAP PO SCH (08:05)
[2022-01-05] MEDS: ASPIRIN 325 MG TAB PO SCH (08:05)
[2022-01-05] MEDS: SPIRONOLACTONE 12.5MG PER 1/2 TABLET PO SCH (08:06)
[2022-01-05] MEDS: PANTOPRAZOLE 40MG TAB (PROTONIX) PO SCH (08:06)
[2022-01-05] MEDS: DIGOXIN 0.125 MG TAB PO SCH (08:19)
[2022-01-05] MEDS: CARVedilol 3.125 MG TAB PO SCH ×2 (08:19→20:53)
[2022-01-05] MEDS: amLODIPine 5 MG TAB PO SCH (08:20)
[2022-01-05 08:21] LABS: BLOOD UREA NITROGEN 21 MG/DL (7-18); CALCIUM LEVEL 8.8 MG/DL (8.8-10.2); CARBON DIOXIDE LEVEL 25 MEQ/L (21-32); CHLORIDE LEVEL 108 MEQ/L (98-107); GLOMERULAR FILTRATION RATE > 60.0 (>32); GLUCOSE, FASTING 96 MG/DL (70-100); NT-PRO BNP 804 PG/ML (<450); POTASSIUM SERUM 4.1 MEQ/L (3.5-5.1); SODIUM LEVEL 142 MEQ/L (136-145)
[2022-01-05] MEDS ORDERED: CONRAY-60 60% 50ML VIAL (Q9961) As Ordered ONE (09:10)
[2022-01-05] MEDS ORDERED: fentaNYL 100 MCG/2 ML INJECTION As Ordered ONE (09:35)
[2022-01-05] MEDS ORDERED: LIDOCAINE 2% 100MG/5ML SDV (FOR ANES.) As Ordered ONE (09:35)
[2022-01-05] MEDS ORDERED: propofoL 200 MG/20 ML VIAL As Ordered ONE (09:35)
[2022-01-05 10:32] LABS: HEMOGLOBIN A1c 5.4 %
[2022-01-05] MEDS ORDERED: PHENYLephrine 500MCG 5ML (100MCG/ML) SYRINGE As Ordered ONE (10:56)
[2022-01-05] MEDS ORDERED: dexameTHASONE 4 MG/ML 1ML VIAL (J1100 PER 1MG) As Ordered ONE (10:56)
[2022-01-05] MEDS ORDERED: ONDANSETRON 4MG/2ML VIAL As Ordered ONE (10:56)
[2022-01-05] MEDS ORDERED: ACETAMINOPHEN 1000MG 100ML IV BTL (OFIRMEV) (J0131 PER 10MG) As Ordered ONE (10:58)
[2022-01-05] MEDS ORDERED: fentaNYL 100 MCG/2 ML INJECTION IV PRN (12:00)
[2022-01-05] MEDS ORDERED: LR 1,000 ML IV SCH (12:00)
[2022-01-05] MEDS ORDERED: FUROSEMIDE 20MG/2ML VIAL (J1940) IV ONE (14:30)
[2022-01-05] MEDS: TAMSULOSIN 0.4 MG CAP PO SCH (20:52)
[2022-01-06] MEDS: cefTRIAXone SOD 1 GM in D5W MINI-BAG PLUS 50 ML IV SCH (01:34)
[2022-01-06 02:00] VITALS: BP 115/60
[2022-01-06 06:00] VITALS: BP 118/62
[2022-01-06 06:44] LABS: HEMATOCRIT 35.1 % (36.0-47.0); HEMOGLOBIN 11.6 g/dl (12.0-15.5); MEAN CORPUSCULAR HEMOGLOBIN 30.4 pg (27.0-33.0); MEAN CORPUSCULAR VOLUME 91.9 fl (80.0-96.0); PLATELET COUNT, AUTOMATED 190 10^3/uL (150-450); RED BLOOD COUNT 3.82 10^6/uL (4.00-5.40)
[2022-01-06 07:16] LABS: ALBUMIN 2.8 GM/DL (3.2-5.2); ALT/SGPT 21 U/L (12-78); BILIRUBIN,TOTAL 0.5 MG/DL (0.2-1.0); BLOOD UREA NITROGEN 20 MG/DL (7-18); CALCIUM LEVEL 8.9 MG/DL (8.8-10.2); CARBON DIOXIDE LEVEL 31 MEQ/L (21-32); CHLORIDE LEVEL 105 MEQ/L (98-107); CREATININE FOR GFR 0.78 MG/DL (0.55-1.30); GLOMERULAR FILTRATION RATE > 60.0 (>32); GLUCOSE, FASTING 122 MG/DL (70-100); POTASSIUM SERUM 3.9 MEQ/L (3.5-5.1); SODIUM LEVEL 139 MEQ/L (136-145); TOTAL PROTEIN 5.9 GM/DL (6.4-8.2)
[2022-01-06] MEDS: ASPIRIN 325 MG TAB PO SCH (08:45)
[2022-01-06] MEDS: FLUoxetine 20 MG CAP PO SCH (08:45)
[2022-01-06] MEDS: VITAMIN D 1,000 INTERNATIONAL UNITS TABLET PO SCH (08:45)
[2022-01-06] MEDS: amLODIPine 5 MG TAB PO SCH (08:45)
[2022-01-06] MEDS: PANTOPRAZOLE 40MG TAB (PROTONIX) PO SCH (08:45)
[2022-01-06] MEDS: SPIRONOLACTONE 12.5MG PER 1/2 TABLET PO SCH (08:46)
[2022-01-06] MEDS: DIGOXIN 0.125 MG TAB PO SCH (08:46)
[2022-01-06] MEDS: CARVedilol 3.125 MG TAB PO SCH ×2 (08:46→21:00)
[2022-01-06 10:00] VITALS: BP 137/78
[2022-01-06 14:00] VITALS: BP 137/78
[2022-01-06] MEDS: DOCUSATE SODIUM 100MG CAPSULE PO SCH (21:18)
[2022-01-06] MEDS: MIRALAX *UNIT DOSE* 17GM PACKET PO SCH (21:19)
[2022-01-06] MEDS: TAMSULOSIN 0.4 MG CAP PO SCH (21:19)
[2022-01-06 22:00] VITALS: BP 104/57
[2022-01-07] MEDS: cefTRIAXone SOD 1 GM in D5W MINI-BAG PLUS 50 ML IV SCH (01:42)
[2022-01-07] MEDS: CEFDINIR 300 MG CAP (OMNICEF) PO SCH ×2 (02:36→09:44)
[2022-01-07 06:00] VITALS: BP 130/77
[2022-01-07 06:36] LABS: HEMATOCRIT 36.4 % (36.0-47.0); HEMOGLOBIN 11.8 g/dl (12.0-15.5); MEAN CORPUSCULAR HEMOGLOBIN 30.1 pg (27.0-33.0); MEAN CORPUSCULAR HGB CONC 32.4 g/dl (32.0-36.5); MEAN CORPUSCULAR VOLUME 92.9 fl (80.0-96.0); PLATELET COUNT, AUTOMATED 190 10^3/uL (150-450); RED BLOOD COUNT 3.92 10^6/uL (4.00-5.40); WHITE BLOOD COUNT 8.9 10^3/uL (4.0-10.0)
[2022-01-07 07:11] LABS: ALBUMIN 2.6 GM/DL (3.2-5.2); ALT/SGPT 21 U/L (12-78); BILIRUBIN,TOTAL 0.4 MG/DL (0.2-1.0); BLOOD UREA NITROGEN 18 MG/DL (7-18); CALCIUM LEVEL 8.5 MG/DL (8.8-10.2); CARBON DIOXIDE LEVEL 30 MEQ/L (21-32); CHLORIDE LEVEL 109 MEQ/L (98-107); CREATININE FOR GFR 0.66 MG/DL (0.55-1.30); GLOMERULAR FILTRATION RATE > 60.0 (>32); GLUCOSE, FASTING 84 MG/DL (70-100); POTASSIUM SERUM 3.7 MEQ/L (3.5-5.1); SODIUM LEVEL 146 MEQ/L (136-145)
[2022-01-07] MEDS ORDERED: CEFD300CAP PO (09:43)
[2022-01-07] MEDS: ASPIRIN 325 MG TAB PO SCH (09:44)
[2022-01-07] MEDS: VITAMIN D 1,000 INTERNATIONAL UNITS TABLET PO SCH (09:44)
[2022-01-07] MEDS: MIRALAX *UNIT DOSE* 17GM PACKET PO SCH (09:44)
[2022-01-07] MEDS: DOCUSATE SODIUM 100MG CAPSULE PO SCH (09:44)
[2022-01-07] MEDS: PANTOPRAZOLE 40MG TAB (PROTONIX) PO SCH (09:45)
[2022-01-07] MEDS: FLUoxetine 20 MG CAP PO SCH (09:45)
[2022-01-07] MEDS: SPIRONOLACTONE 12.5MG PER 1/2 TABLET PO SCH (09:45)
[2022-01-07] MEDS: DIGOXIN 0.125 MG TAB PO SCH (09:45)
[2022-01-07 09:47] VITALS: BP 128/76
[2022-01-07] MEDS: amLODIPine 5 MG TAB PO SCH (09:47)
[2022-01-07] MEDS: CARVedilol 3.125 MG TAB PO SCH (09:47)
== END 2022-01-07 12:43 | disposition home or self-care (01) | DRG 689 ==
LOC: M ED 22:10 → M ED INP 01-05 04:52 → ENRESERV 01-05 05:07 → M MSPAV 01-05 06:20 → ENRESERV 01-05 14:20
PROVIDERS: ADMIT Family Medicine; ATTEND Family Medicine
PROC: 0T763DZ Dilation of Right Ureter with Intraluminal Device, Percutaneous Approach (ICD-10-PCS; 2022-01-05)
PROC: 0TC68ZZ Extirpation of Matter from Right Ureter, Via Natural or Artificial Opening Endoscopic (ICD-10-PCS; principal; 2022-01-05 08:45)
DX: N13.6 Pyonephrosis (principal); J18.9 Pneumonia, unspecified organism; I42.9 Cardiomyopathy, unspecified; J98.11 Atelectasis; I25.10 Atherosclerotic heart disease of native coronary artery without angina pectoris; R09.02 Hypoxemia; I11.0 Hypertensive heart disease with heart failure; I50.9 Heart failure, unspecified; K21.9 Gastro-esophageal reflux disease without esophagitis; R54 Age-related physical debility; N39.0 Urinary tract infection, site not specified; I25.2 Old myocardial infarction; F41.9 Anxiety disorder, unspecified; E78.5 Hyperlipidemia, unspecified; K57.90 Diverticulosis of intestine, part unspecified, without perforation or abscess without bleeding; Z95.5 Presence of coronary angioplasty implant and graft; Z86.73 Personal history of transient ischemic attack (TIA), and cerebral infarction without residual deficits; Z95.0 Presence of cardiac pacemaker; Z98.41 Cataract extraction status, right eye; Z98.42 Cataract extraction status, left eye; Z90.49 Acquired absence of other specified parts of digestive tract; Z20.822 Contact with and (suspected) exposure to COVID-19; Z79.82 Long term (current) use of aspirin; Z79.899 Other long term (current) drug therapy; Z88.1 Allergy status to other antibiotic agents; Z88.8 Allergy status to other drugs, medicaments and biological substances

== ENCOUNTER → 2022-01-21 | Outpatient (CLI) | payer MEDICARE ==
[~2022-01-21] MED LIST changes: +BAYE325T13 PO; +CEFD300CAP PO; +DIGO0.127 PO; +PANT-23 PO
== END ==
LOC: M WUC 12:55
PROVIDERS: ATTEND Family Medicine
DX: R05.9 Cough, unspecified (principal)

== ENCOUNTER → 2022-04-11 | Outpatient (REF) | payer MEDICARE, MEDICAID ==
[2022-04-12 12:42] LABS: HEMATOCRIT 43.8 % (36.0-47.0); HEMOGLOBIN 13.9 g/dl (12.0-15.5); MEAN CORPUSCULAR HGB CONC 31.7 g/dl (32.0-36.5); MEAN CORPUSCULAR VOLUME 91.4 fl (80.0-96.0); PLATELET COUNT, AUTOMATED 335 10^3/uL (150-450); RED BLOOD COUNT 4.79 10^6/uL (4.00-5.40); WHITE BLOOD COUNT 8.7 10^3/uL (4.0-10.0)
[2022-04-12 13:17] LABS: ALBUMIN 3.6 GM/DL (3.2-5.2); BILIRUBIN,TOTAL 0.4 MG/DL (0.2-1.0); CALCIUM LEVEL 8.9 MG/DL (8.8-10.2); DIGOXIN LEVEL 2.1 NG/ML (0.5-2.0); GLOMERULAR FILTRATION RATE 55.7 (>32); TOTAL PROTEIN 7.2 GM/DL (6.4-8.2)
== END ==
LOC: M SFHCADAM 15:23
PROVIDERS: ATTEND Family Medicine
DX: I65.29 Occlusion and stenosis of unspecified carotid artery (principal); I48.0 Paroxysmal atrial fibrillation; I11.0 Hypertensive heart disease with heart failure

== ENCOUNTER → 2022-07-12 | Outpatient (REF) | payer MEDICARE, MEDICAID | LOC: M SFHCADAM 15:38 | PROVIDERS: ATTEND Family Medicine | DX: I25.10 Atherosclerotic heart disease of native coronary artery without angina pectoris (principal); I48.0 Paroxysmal atrial fibrillation; I11.0 Hypertensive heart disease with heart failure ==

== ENCOUNTER → 2022-07-17 | Outpatient (CLI) | payer MEDICARE, MEDICAID ==
[2022-07-17 16:37] LABS: HEMATOCRIT 43.4 % (36.0-47.0); HEMOGLOBIN 13.3 g/dl (12.0-15.5); MEAN CORPUSCULAR HEMOGLOBIN 28.7 pg (27.0-33.0); MEAN CORPUSCULAR HGB CONC 30.6 g/dl (32.0-36.5); MEAN CORPUSCULAR VOLUME 93.5 fl (80.0-96.0); PLATELET COUNT, AUTOMATED 293 10^3/uL (150-450); RED BLOOD COUNT 4.64 10^6/uL (4.00-5.40); WHITE BLOOD COUNT 8.1 10^3/uL (4.0-10.0)
[2022-07-17 17:29] LABS: ALBUMIN 3.4 GM/DL (3.2-5.2); BILIRUBIN,TOTAL 0.6 MG/DL (0.2-1.0); CALCIUM LEVEL 9.5 MG/DL (8.8-10.2); DIGOXIN LEVEL 1.3 NG/ML (0.5-2.0); GLOMERULAR FILTRATION RATE 55.7 (>32); POTASSIUM SERUM 4.3 MEQ/L (3.5-5.1)
== END ==
LOC: M WUC 11:23
PROVIDERS: ATTEND Family Medicine
DX: I25.10 Atherosclerotic heart disease of native coronary artery without angina pectoris (principal); I48.0 Paroxysmal atrial fibrillation; I11.0 Hypertensive heart disease with heart failure

== ENCOUNTER → 2023-01-16 | Outpatient (REF) | payer MEDICARE, MEDICAID ==
[~2023-01-16] MED LIST changes: +CLOP75TA99 PO; -PLAV1TAB2 PO
[2023-01-17 14:09] LABS: HEMATOCRIT 45.3 % (36.0-47.0); HEMOGLOBIN 14.3 g/dl (12.0-15.5); MEAN CORPUSCULAR HEMOGLOBIN 29.5 pg (27.0-33.0); MEAN CORPUSCULAR HGB CONC 31.6 g/dl (32.0-36.5); MEAN CORPUSCULAR VOLUME 93.6 fl (80.0-96.0); PLATELET COUNT, AUTOMATED 308 10^3/uL (150-450); RED BLOOD COUNT 4.84 10^6/uL (4.00-5.40); WHITE BLOOD COUNT 10.4 10^3/uL (4.0-10.0)
[2023-01-17 14:25] LABS: FREE T4 1.03 NG/DL (0.89-1.76); THYROID STIMULATING HORMONE 2.108 uIU/ML (0.55-4.78)
[2023-01-17 14:26] LABS: DIGOXIN LEVEL 1.5 NG/ML (0.8-2.0)
[2023-01-17 14:47] LABS: ALBUMIN 3.9 G/DL (3.2-5.2); BILIRUBIN,TOTAL 0.5 MG/DL (0.3-1.2); CALCIUM LEVEL 9.8 MG/DL (8.3-10.6); CREATININE FOR GFR 0.95 MG/DL (0.55-1.30); MAGNESIUM LEVEL 1.9 MG/DL (1.8-2.4); POTASSIUM SERUM 6.2 MMOL/L (3.5-5.1); TOTAL PROTEIN 7.2 G/DL (5.7-8.2)
== END ==
LOC: M SFHCADAM 15:12
PROVIDERS: ATTEND Family Medicine
DX: I25.10 Atherosclerotic heart disease of native coronary artery without angina pectoris (principal); E53.8 Deficiency of other specified B group vitamins; F32.9 Major depressive disorder, single episode, unspecified; I51.81 Takotsubo syndrome; I48.0 Paroxysmal atrial fibrillation

== ENCOUNTER → 2023-01-23 | Outpatient (REF) | payer MEDICARE, MEDICAID ==
[2023-01-23 18:11] LABS: BLOOD UREA NITROGEN 15 MG/DL (9-23); CALCIUM LEVEL 9.4 MG/DL (8.3-10.6); CARBON DIOXIDE LEVEL 28 MMOL/L (20-31); CHLORIDE LEVEL 104 MMOL/L (98-107); CREATININE FOR GFR 0.79 MG/DL (0.55-1.30); GLOMERULAR FILTRATION RATE > 60.0 (>32); GLUCOSE, FASTING 88 MG/DL (74-106); POTASSIUM SERUM 4.1 MMOL/L (3.5-5.1); SODIUM LEVEL 141 MMOL/L (136-145)
== END ==
LOC: M SFHCADAM 15:02
PROVIDERS: ATTEND Family Medicine
DX: E87.5 Hyperkalemia (principal)

== ENCOUNTER 2023-02-19 22:07 | Inpatient (IN) | payer MEDICARE, MEDICAID ==
[~2023-02-19] VITALS: Ht 149.9 cm; Wt 49.9 kg
[2023-02-19] MEDS ORDERED: MECLIZINE 25 MG TABLET PO ONE (23:35)
[2023-02-19 23:37] LABS: BASO % 0.4 % (0.0-1.0); EOS # 0.1 10^3/uL (0.0-0.5); EOS % 1.1 % (0.0-3.0); HEMATOCRIT 42.6 % (36.0-47.0); HEMOGLOBIN 13.7 g/dl (12.0-15.5); LYMPH # 1.9 10^3/uL (1.5-5.0); LYMPH % 22.7 % (24.0-44.0); MEAN CORPUSCULAR HEMOGLOBIN 29.1 pg (27.0-33.0); MEAN CORPUSCULAR HGB CONC 32.2 g/dl (32.0-36.5); MEAN CORPUSCULAR VOLUME 90.6 fl (80.0-96.0); MONO # 0.7 10^3/uL (0.0-0.8); MONO % 8.4 % (2.0-8.0); NEUTROPHILS # 5.6 10^3/uL (1.5-8.5); NEUTROPHILS % 66.6 % (36.0-66.0); PLATELET COUNT, AUTOMATED 241 10^3/uL (150-450); WHITE BLOOD COUNT 8.4 10^3/uL (4.0-10.0)
[2023-02-19 23:46] LABS: INR 0.89; PROTHROMBIN TIME 12.2 SECONDS (12.5-14.5)
[2023-02-19 23:47] LABS: PARTIAL THROMBOPLASTIN TIME 24.4 SECONDS (24.8-34.2)
[2023-02-20 00:01] LABS: BLOOD UREA NITROGEN 15 MG/DL (9-23); CALCIUM LEVEL 9.3 MG/DL (8.3-10.6); CARBON DIOXIDE LEVEL 26 MMOL/L (20-31); CHLORIDE LEVEL 105 MMOL/L (98-107); CK-MB VALUE MASS < 1.0 NG/ML (<3.6); CPK CREATINE PHOSPHOKINASE 41 U/L (34-145); CREATININE FOR GFR 0.63 MG/DL (0.55-1.30); GLOMERULAR FILTRATION RATE > 60.0 (>32); GLUCOSE, FASTING 136 MG/DL (74-106); MB/CK RELATIVE INDEX 2.43 (< OR =4); SODIUM LEVEL 137 MMOL/L (136-145)
[2023-02-20] MEDS ORDERED: ISOVUE-370 76% 100ML VIAL As Ordered ONE (01:15)
[2023-02-20] MEDS ORDERED: ACETAMINOPHEN TAB 650MG DOSE (2X325MG) PO PRN (04:10)
[2023-02-20 06:10] VITALS: BP 149/85
[2023-02-20] MEDS ORDERED: TOVI4TAB PO (06:21)
[2023-02-20] MEDS ORDERED: HOME MED LIST COMPLETE! XX SCH (06:25)
[2023-02-20] MEDS: ASPIRIN 81MG ENTERIC TABLET PO SCH (08:42)
[2023-02-20] MEDS: MECLIZINE 25 MG TABLET PO SCH ×2 (08:42→20:27)
[2023-02-20] MEDS: CLOPIDOGREL 75 MG TAB PO SCH (08:42)
[2023-02-20 14:00] VITALS: BP 125/78
[2023-02-20 20:00] VITALS: BP 115/63
[2023-02-20] MEDS: cefTRIAXone SOD 1 GM in D5W MINI-BAG PLUS 50 ML IV SCH (20:27)
[2023-02-21] VITALS (15 sets, daily range): BP systolic 128–149; BP diastolic 76–88; O2SAT 85–97
[2023-02-21] MEDS ORDERED: ISOVUE-370 76% 100ML VIAL As Ordered ONE (08:55)
[2023-02-21 09:14] LABS: CHOLESTEROL RISK RATIO 5.01 (<5); HDL CHOLESTEROL 42.7 MG/DL (>40); LDL CHOLESTEROL 135.5 MG/DL (<100); NON-HDL-C 171.3 MG/DL
[2023-02-21 09:19] LABS: INR 0.92; PROTHROMBIN TIME 12.6 SECONDS (12.5-14.5)
[2023-02-21] MEDS: FLUoxetine 20MG CAP PO SCH (12:31)
[2023-02-21] MEDS: EZETIMIBE 10MG TABLET (ZETIA) PO SCH (12:31)
[2023-02-21] MEDS: ASPIRIN 81MG ENTERIC TABLET PO SCH (12:31)
[2023-02-21] MEDS: VITAMIN D 1,000 INTERNATIONAL UNITS TABLET PO SCH (12:31)
[2023-02-21] MEDS: PANTOPRAZOLE 40MG TAB (PROTONIX) PO SCH (12:32)
[2023-02-21] MEDS: MECLIZINE 25 MG TABLET PO SCH ×2 (12:32→20:45)
[2023-02-21] MEDS: CLOPIDOGREL 75 MG TAB PO SCH (12:32)
[2023-02-21] MEDS: DIGOXIN 0.125 MG TAB PO SCH (12:34)
[2023-02-21 13:10] LABS: HEMATOCRIT 44.8 % (36.0-47.0); HEMOGLOBIN 14.2 g/dl (12.0-15.5); MEAN CORPUSCULAR HEMOGLOBIN 28.7 pg (27.0-33.0); MEAN CORPUSCULAR HGB CONC 31.7 g/dl (32.0-36.5); MEAN CORPUSCULAR VOLUME 90.7 fl (80.0-96.0); PLATELET COUNT, AUTOMATED 251 10^3/uL (150-450); RED BLOOD COUNT 4.94 10^6/uL (4.00-5.40); WHITE BLOOD COUNT 9.9 10^3/uL (4.0-10.0)
[2023-02-21 13:28] LABS: HEMOGLOBIN A1c 5.3 % (4.0-6.0)
[2023-02-21 13:34] LABS: ALBUMIN 3.3 G/DL (3.2-5.2); ALKALINE PHOSPHATASE 68 U/L (46-116); ALT/SGPT 13 U/L (7.0-40); AST/SGOT 17 U/L (<34); BILIRUBIN,TOTAL 0.6 MG/DL (0.3-1.2); BLOOD UREA NITROGEN 12 MG/DL (9-23); CALCIUM LEVEL 9.3 MG/DL (8.3-10.6); CARBON DIOXIDE LEVEL 26 MMOL/L (20-31); CHLORIDE LEVEL 103 MMOL/L (98-107); CREATININE FOR GFR 0.63 MG/DL (0.55-1.30); GLOMERULAR FILTRATION RATE > 60.0 (>32); GLUCOSE, FASTING 102 MG/DL (74-106); POTASSIUM SERUM 3.9 MMOL/L (3.5-5.1); SODIUM LEVEL 138 MMOL/L (136-145); TOTAL PROTEIN 6.9 G/DL (5.7-8.2)
[2023-02-21] MEDS: cefTRIAXone SOD 1 GM in D5W MINI-BAG PLUS 50 ML IV SCH (20:46)
[2023-02-22] VITALS (25 sets, daily range): BP systolic 116–139; BP diastolic 64–75; O2SAT 91–97
[2023-02-22 06:39] LABS: HEMATOCRIT 41.9 % (36.0-47.0); HEMOGLOBIN 13.4 g/dl (12.0-15.5); MEAN CORPUSCULAR HEMOGLOBIN 29.1 pg (27.0-33.0); MEAN CORPUSCULAR VOLUME 91.1 fl (80.0-96.0); PLATELET COUNT, AUTOMATED 217 10^3/uL (150-450); WHITE BLOOD COUNT 7.8 10^3/uL (4.0-10.0)
[2023-02-22 07:07] LABS: ALBUMIN 3.1 G/DL (3.2-5.2); ALKALINE PHOSPHATASE 64 U/L (46-116); ALT/SGPT < 9 U/L (7.0-40); AST/SGOT 14 U/L (<34); BILIRUBIN,TOTAL 0.6 MG/DL (0.3-1.2); BLOOD UREA NITROGEN 15 MG/DL (9-23); CALCIUM LEVEL 9.1 MG/DL (8.3-10.6); CARBON DIOXIDE LEVEL 28 MMOL/L (20-31); CHLORIDE LEVEL 104 MMOL/L (98-107); CREATININE FOR GFR 0.64 MG/DL (0.55-1.30); GLOMERULAR FILTRATION RATE > 60.0 (>32); GLUCOSE, FASTING 105 MG/DL (74-106); POTASSIUM SERUM 3.5 MMOL/L (3.5-5.1); SODIUM LEVEL 140 MMOL/L (136-145); TOTAL PROTEIN 6.2 G/DL (5.7-8.2)
[2023-02-22] MEDS: CLOPIDOGREL 75 MG TAB PO SCH (09:22)
[2023-02-22] MEDS: DIGOXIN 0.125 MG TAB PO SCH (09:23)
[2023-02-22] MEDS: EZETIMIBE 10MG TABLET (ZETIA) PO SCH (09:23)
[2023-02-22] MEDS: VITAMIN D 1,000 INTERNATIONAL UNITS TABLET PO SCH (09:23)
[2023-02-22] MEDS: ASPIRIN 81MG ENTERIC TABLET PO SCH (09:23)
[2023-02-22] MEDS: PANTOPRAZOLE 40MG TAB (PROTONIX) PO SCH (09:23)
[2023-02-22] MEDS: FLUoxetine 20MG CAP PO SCH (09:24)
[2023-02-22] MEDS ORDERED: MOM 30ML SUSPENSION UDC PO SCH (12:05)
[2023-02-22] MEDS ORDERED: MOM 30ML SUSPENSION UDC PO PRN (12:10)
[2023-02-22] MEDS ORDERED: MIRALAX *UNIT DOSE* 17GM PACKET PO PRN (12:30)
[2023-02-22] MEDS ORDERED: SENOKOT S TAB PO PRN (12:30)
[2023-02-22] MEDS ORDERED: NS 500 ML IV ONE (15:45)
[2023-02-22] MEDS: cefTRIAXone SOD 1 GM in D5W MINI-BAG PLUS 50 ML IV SCH (19:48)
[2023-02-22] MEDS ORDERED: SENOKOT S TAB PO SCH (21:00)
[2023-02-22] MEDS ORDERED: MIRALAX *UNIT DOSE* 17GM PACKET PO SCH (21:00)
[2023-02-23] VITALS (15 sets, daily range): BP systolic 118–129; BP diastolic 72–74; O2SAT 91–97
[2023-02-23 05:56] LABS: HEMATOCRIT 40.1 % (36.0-47.0); HEMOGLOBIN 12.8 g/dl (12.0-15.5); MEAN CORPUSCULAR HEMOGLOBIN 29.2 pg (27.0-33.0); MEAN CORPUSCULAR HGB CONC 31.9 g/dl (32.0-36.5); MEAN CORPUSCULAR VOLUME 91.3 fl (80.0-96.0); PLATELET COUNT, AUTOMATED 221 10^3/uL (150-450); RED BLOOD COUNT 4.39 10^6/uL (4.00-5.40); WHITE BLOOD COUNT 7.1 10^3/uL (4.0-10.0)
[2023-02-23 06:20] LABS: ALKALINE PHOSPHATASE 61 U/L (46-116); ALT/SGPT 12 U/L (7.0-40); AST/SGOT 14 U/L (<34); BILIRUBIN,TOTAL 0.6 MG/DL (0.3-1.2); BLOOD UREA NITROGEN 12 MG/DL (9-23); CALCIUM LEVEL 8.8 MG/DL (8.3-10.6); CARBON DIOXIDE LEVEL 28 MMOL/L (20-31); CHLORIDE LEVEL 106 MMOL/L (98-107); CREATININE FOR GFR 0.61 MG/DL (0.55-1.30); GLOMERULAR FILTRATION RATE > 60.0 (>32); GLUCOSE, FASTING 93 MG/DL (74-106); POTASSIUM SERUM 3.6 MMOL/L (3.5-5.1); SODIUM LEVEL 139 MMOL/L (136-145); TOTAL PROTEIN 5.9 G/DL (5.7-8.2)
[2023-02-23] MEDS: ASPIRIN 81MG ENTERIC TABLET PO SCH (08:27)
[2023-02-23] MEDS: VITAMIN D 1,000 INTERNATIONAL UNITS TABLET PO SCH (08:27)
[2023-02-23] MEDS: DIGOXIN 0.125 MG TAB PO SCH (08:28)
[2023-02-23] MEDS: CLOPIDOGREL 75 MG TAB PO SCH (08:28)
[2023-02-23] MEDS: FLUoxetine 20MG CAP PO SCH (08:28)
[2023-02-23] MEDS: PANTOPRAZOLE 40MG TAB (PROTONIX) PO SCH (08:28)
[2023-02-23] MEDS: EZETIMIBE 10MG TABLET (ZETIA) PO SCH (08:28)
[2023-02-23] MEDS: MIRALAX *UNIT DOSE* 17GM PACKET PO SCH ×2 (11:11→20:42)
[2023-02-23] MEDS: ENOXAPARIN 40MG/0.4ML SYRINGE (J1650 PER 10MG) SC SCH (11:11)
[2023-02-23] MEDS: METAMUCIL (PSYLLIUM) PACKET PO SCH ×2 (14:19→20:42)
[2023-02-23] MEDS: SENNA 8.6 MG TAB (SENOKOT) PO SCH (14:19)
[2023-02-23] MEDS: cefTRIAXone SOD 1 GM in D5W MINI-BAG PLUS 50 ML IV SCH (20:42)
[2023-02-24 04:00] VITALS: BP 134/68
[2023-02-24 05:47] LABS: HEMATOCRIT 39.3 % (36.0-47.0); HEMOGLOBIN 12.7 g/dl (12.0-15.5); MEAN CORPUSCULAR HEMOGLOBIN 28.9 pg (27.0-33.0); MEAN CORPUSCULAR HGB CONC 32.3 g/dl (32.0-36.5); MEAN CORPUSCULAR VOLUME 89.5 fl (80.0-96.0); PLATELET COUNT, AUTOMATED 223 10^3/uL (150-450); RED BLOOD COUNT 4.39 10^6/uL (4.00-5.40); WHITE BLOOD COUNT 6.3 10^3/uL (4.0-10.0)
[2023-02-24 06:00] VITALS: BP 128/71
[2023-02-24 06:26] LABS: ALKALINE PHOSPHATASE 64 U/L (46-116); ALT/SGPT 16 U/L (7.0-40); AST/SGOT 19 U/L (<34); BILIRUBIN,TOTAL 0.5 MG/DL (0.3-1.2); BLOOD UREA NITROGEN 9 MG/DL (9-23); CALCIUM LEVEL 8.7 MG/DL (8.3-10.6); CARBON DIOXIDE LEVEL 27 MMOL/L (20-31); CHLORIDE LEVEL 105 MMOL/L (98-107); CREATININE FOR GFR 0.59 MG/DL (0.55-1.30); GLOMERULAR FILTRATION RATE > 60.0 (>32); GLUCOSE, FASTING 92 MG/DL (74-106); POTASSIUM SERUM 3.6 MMOL/L (3.5-5.1); SODIUM LEVEL 138 MMOL/L (136-145); TOTAL PROTEIN 6.2 G/DL (5.7-8.2)
[2023-02-24 07:33] VITALS: BP 132/81
[2023-02-24] MEDS: VITAMIN D 1,000 INTERNATIONAL UNITS TABLET PO SCH (07:48)
[2023-02-24] MEDS: MIRALAX *UNIT DOSE* 17GM PACKET PO SCH ×2 (07:48→20:40)
[2023-02-24] MEDS: ASPIRIN 81MG ENTERIC TABLET PO SCH (07:49)
[2023-02-24] MEDS: CLOPIDOGREL 75 MG TAB PO SCH (07:49)
[2023-02-24] MEDS: PANTOPRAZOLE 40MG TAB (PROTONIX) PO SCH (07:49)
[2023-02-24] MEDS: DIGOXIN 0.125 MG TAB PO SCH (07:49)
[2023-02-24] MEDS: EZETIMIBE 10MG TABLET (ZETIA) PO SCH (07:49)
[2023-02-24] MEDS: METAMUCIL (PSYLLIUM) PACKET PO SCH ×2 (07:50→20:40)
[2023-02-24] MEDS: FLUoxetine 20MG CAP PO SCH (07:50)
[2023-02-24] MEDS: SENNA 8.6 MG TAB (SENOKOT) PO SCH (07:50)
[2023-02-24] MEDS: ENOXAPARIN 40MG/0.4ML SYRINGE (J1650 PER 10MG) SC SCH (07:51)
[2023-02-24 16:45] VITALS: BP 145/87
[2023-02-24] MEDS: CEFDINIR 300 MG CAP (OMNICEF) PO SCH (20:40)
[2023-02-25 06:00] VITALS: BP 142/84
[2023-02-25 06:27] LABS: HEMATOCRIT 39.1 % (36.0-47.0); HEMOGLOBIN 12.8 g/dl (12.0-15.5); MEAN CORPUSCULAR HEMOGLOBIN 29.4 pg (27.0-33.0); MEAN CORPUSCULAR HGB CONC 32.7 g/dl (32.0-36.5); MEAN CORPUSCULAR VOLUME 89.7 fl (80.0-96.0); PLATELET COUNT, AUTOMATED 220 10^3/uL (150-450); RED BLOOD COUNT 4.36 10^6/uL (4.00-5.40); WHITE BLOOD COUNT 6.2 10^3/uL (4.0-10.0)
[2023-02-25 07:04] LABS: ALBUMIN 3.1 G/DL (3.2-5.2); ALKALINE PHOSPHATASE 64 U/L (46-116); ALT/SGPT 18 U/L (7.0-40); AST/SGOT 20 U/L (<34); BILIRUBIN,TOTAL 0.6 MG/DL (0.3-1.2); BLOOD UREA NITROGEN 11 MG/DL (9-23); CALCIUM LEVEL 8.9 MG/DL (8.3-10.6); CARBON DIOXIDE LEVEL 28 MMOL/L (20-31); CHLORIDE LEVEL 105 MMOL/L (98-107); CREATININE FOR GFR 0.61 MG/DL (0.55-1.30); GLOMERULAR FILTRATION RATE > 60.0 (>32); GLUCOSE, FASTING 94 MG/DL (74-106); POTASSIUM SERUM 3.8 MMOL/L (3.5-5.1); SODIUM LEVEL 138 MMOL/L (136-145); TOTAL PROTEIN 5.9 G/DL (5.7-8.2)
[2023-02-25] MEDS: METAMUCIL (PSYLLIUM) PACKET PO SCH ×2 (09:00→19:51)
[2023-02-25] MEDS: MIRALAX *UNIT DOSE* 17GM PACKET PO SCH ×2 (09:00→19:52)
[2023-02-25] MEDS: SENNA 8.6 MG TAB (SENOKOT) PO SCH (09:00)
[2023-02-25] MEDS: EZETIMIBE 10MG TABLET (ZETIA) PO SCH (09:07)
[2023-02-25] MEDS: PANTOPRAZOLE 40MG TAB (PROTONIX) PO SCH (09:07)
[2023-02-25] MEDS: ASPIRIN 81MG ENTERIC TABLET PO SCH (09:07)
[2023-02-25] MEDS: VITAMIN D 1,000 INTERNATIONAL UNITS TABLET PO SCH (09:07)
[2023-02-25] MEDS: CEFDINIR 300 MG CAP (OMNICEF) PO SCH ×2 (09:07→19:59)
[2023-02-25] MEDS: DIGOXIN 0.125 MG TAB PO SCH (09:08)
[2023-02-25] MEDS: CLOPIDOGREL 75 MG TAB PO SCH (09:08)
[2023-02-25] MEDS: FLUoxetine 20MG CAP PO SCH (09:08)
[2023-02-25] MEDS: ENOXAPARIN 40MG/0.4ML SYRINGE (J1650 PER 10MG) SC SCH (09:08)
[2023-02-26 04:55] VITALS: BP 140/83
[2023-02-26 05:36] LABS: HEMATOCRIT 39.3 % (36.0-47.0); HEMOGLOBIN 12.6 g/dl (12.0-15.5); MEAN CORPUSCULAR HEMOGLOBIN 29.4 pg (27.0-33.0); MEAN CORPUSCULAR HGB CONC 32.1 g/dl (32.0-36.5); MEAN CORPUSCULAR VOLUME 91.6 fl (80.0-96.0); PLATELET COUNT, AUTOMATED 230 10^3/uL (150-450); RED BLOOD COUNT 4.29 10^6/uL (4.00-5.40); WHITE BLOOD COUNT 6.8 10^3/uL (4.0-10.0)
[2023-02-26 06:02] LABS: ALBUMIN 3.1 G/DL (3.2-5.2); ALKALINE PHOSPHATASE 62 U/L (46-116); ALT/SGPT 21 U/L (7.0-40); AST/SGOT 21 U/L (<34); BILIRUBIN,TOTAL 0.4 MG/DL (0.3-1.2); BLOOD UREA NITROGEN 10 MG/DL (9-23); CALCIUM LEVEL 8.7 MG/DL (8.3-10.6); CARBON DIOXIDE LEVEL 28 MMOL/L (20-31); CHLORIDE LEVEL 105 MMOL/L (98-107); CREATININE FOR GFR 0.66 MG/DL (0.55-1.30); GLOMERULAR FILTRATION RATE > 60.0 (>32); GLUCOSE, FASTING 93 MG/DL (74-106); POTASSIUM SERUM 3.6 MMOL/L (3.5-5.1); SODIUM LEVEL 140 MMOL/L (136-145); TOTAL PROTEIN 5.9 G/DL (5.7-8.2)
[2023-02-26] MEDS: METAMUCIL (PSYLLIUM) PACKET PO SCH ×2 (09:00→20:23)
[2023-02-26] MEDS: MIRALAX *UNIT DOSE* 17GM PACKET PO SCH ×2 (09:00→20:24)
[2023-02-26] MEDS: SENNA 8.6 MG TAB (SENOKOT) PO SCH (09:00)
[2023-02-26] MEDS: EZETIMIBE 10MG TABLET (ZETIA) PO SCH (09:50)
[2023-02-26] MEDS: ASPIRIN 81MG ENTERIC TABLET PO SCH (09:50)
[2023-02-26] MEDS: PANTOPRAZOLE 40MG TAB (PROTONIX) PO SCH (09:50)
[2023-02-26] MEDS: FLUoxetine 20MG CAP PO SCH (09:50)
[2023-02-26] MEDS: DIGOXIN 0.125 MG TAB PO SCH (09:50)
[2023-02-26] MEDS: CLOPIDOGREL 75 MG TAB PO SCH (09:50)
[2023-02-26] MEDS: VITAMIN D 1,000 INTERNATIONAL UNITS TABLET PO SCH (09:50)
[2023-02-26] MEDS: CEFDINIR 300 MG CAP (OMNICEF) PO SCH ×2 (09:50→20:31)
[2023-02-26] MEDS: ENOXAPARIN 40MG/0.4ML SYRINGE (J1650 PER 10MG) SC SCH (09:51)
[2023-02-27 05:45] VITALS: BP 140/81
[2023-02-27 06:12] LABS: HEMATOCRIT 38.8 % (36.0-47.0); HEMOGLOBIN 12.3 g/dl (12.0-15.5); MEAN CORPUSCULAR HEMOGLOBIN 28.9 pg (27.0-33.0); MEAN CORPUSCULAR HGB CONC 31.7 g/dl (32.0-36.5); MEAN CORPUSCULAR VOLUME 91.3 fl (80.0-96.0); PLATELET COUNT, AUTOMATED 228 10^3/uL (150-450); RED BLOOD COUNT 4.25 10^6/uL (4.00-5.40)
[2023-02-27 06:49] LABS: ALBUMIN 3.1 G/DL (3.2-5.2); ALKALINE PHOSPHATASE 62 U/L (46-116); ALT/SGPT 21 U/L (7.0-40); AST/SGOT 19 U/L (<34); BILIRUBIN,TOTAL 0.4 MG/DL (0.3-1.2); BLOOD UREA NITROGEN 10 MG/DL (9-23); CALCIUM LEVEL 8.8 MG/DL (8.3-10.6); CARBON DIOXIDE LEVEL 27 MMOL/L (20-31); CHLORIDE LEVEL 106 MMOL/L (98-107); CREATININE FOR GFR 0.69 MG/DL (0.55-1.30); GLOMERULAR FILTRATION RATE > 60.0 (>32); GLUCOSE, FASTING 87 MG/DL (74-106); POTASSIUM SERUM 3.7 MMOL/L (3.5-5.1); SODIUM LEVEL 142 MMOL/L (136-145); TOTAL PROTEIN 5.8 G/DL (5.7-8.2)
[2023-02-27] MEDS: SENNA 8.6 MG TAB (SENOKOT) PO SCH (09:00)
[2023-02-27] MEDS: METAMUCIL (PSYLLIUM) PACKET PO SCH (09:00)
[2023-02-27] MEDS: MIRALAX *UNIT DOSE* 17GM PACKET PO SCH (09:00)
[2023-02-27] MEDS: PANTOPRAZOLE 40MG TAB (PROTONIX) PO SCH (09:35)
[2023-02-27] MEDS: ASPIRIN 81MG ENTERIC TABLET PO SCH (09:35)
[2023-02-27] MEDS: EZETIMIBE 10MG TABLET (ZETIA) PO SCH (09:35)
[2023-02-27] MEDS: DIGOXIN 0.125 MG TAB PO SCH (09:36)
[2023-02-27] MEDS: FLUoxetine 20MG CAP PO SCH (09:36)
[2023-02-27] MEDS: VITAMIN D 1,000 INTERNATIONAL UNITS TABLET PO SCH (09:36)
[2023-02-27] MEDS: CLOPIDOGREL 75 MG TAB PO SCH (09:36)
[2023-02-27] MEDS: ENOXAPARIN 40MG/0.4ML SYRINGE (J1650 PER 10MG) SC SCH (09:36)
[2023-02-27] MEDS: CEFDINIR 300 MG CAP (OMNICEF) PO SCH (10:03)
[2023-02-27] MEDS ORDERED: SENN18TA PO (12:07)
[2023-02-27] MEDS ORDERED: EZET10TA21 PO (12:07)
[2023-02-27] MEDS ORDERED: CLOP75TA2 PO (12:07)
[2023-02-27] MEDS ORDERED: META1POW PO (12:07)
[2023-02-27] MEDS ORDERED: ASPI81TAEC PO (12:07)
[2023-02-27] MEDS ORDERED: MIRA1POW3 PO (12:07)
== END 2023-02-27 14:24 | disposition home health service (06) | DRG 68 ==
LOC: EDBD 22:07 → M ED 22:07 → M ED INP 02-20 03:35 → M MSPAV 02-20 06:10 → M PCU 02-21 09:13 → M MSPAV 02-24 16:31
PROVIDERS: ADMIT Family Medicine; ATTEND Internal Medicine
PROC: B246ZZZ Ultrasonography of Right and Left Heart (ICD-10-PCS; principal; 2023-02-20)
DX: I65.23 Occlusion and stenosis of bilateral carotid arteries (principal); I47.1 Supraventricular tachycardia; N39.0 Urinary tract infection, site not specified; I25.5 Ischemic cardiomyopathy; I10 Essential (primary) hypertension; I25.10 Atherosclerotic heart disease of native coronary artery without angina pectoris; K21.9 Gastro-esophageal reflux disease without esophagitis; K57.90 Diverticulosis of intestine, part unspecified, without perforation or abscess without bleeding; I25.2 Old myocardial infarction; E78.5 Hyperlipidemia, unspecified; I65.03 Occlusion and stenosis of bilateral vertebral arteries; F41.0 Panic disorder [episodic paroxysmal anxiety]; M85.80 Other specified disorders of bone density and structure, unspecified site; B96.1 Klebsiella pneumoniae [K. pneumoniae] as the cause of diseases classified elsewhere; E55.9 Vitamin D deficiency, unspecified; R42 Dizziness and giddiness; F32.A Depression, unspecified; I73.9 Peripheral vascular disease, unspecified; M47.812 Spondylosis without myelopathy or radiculopathy, cervical region; M19.90 Unspecified osteoarthritis, unspecified site; K59.00 Constipation, unspecified; R11.10 Vomiting, unspecified; Z66 Do not resuscitate; Z95.0 Presence of cardiac pacemaker; Z98.41 Cataract extraction status, right eye; Z95.5 Presence of coronary angioplasty implant and graft; Z87.442 Personal history of urinary calculi; Z86.73 Personal history of transient ischemic attack (TIA), and cerebral infarction without residual deficits; Z98.42 Cataract extraction status, left eye; Z90.49 Acquired absence of other specified parts of digestive tract; Z79.82 Long term (current) use of aspirin; Z79.899 Other long term (current) drug therapy; Z88.1 Allergy status to other antibiotic agents; Z88.8 Allergy status to other drugs, medicaments and biological substances

== ENCOUNTER → 2023-03-21 | Outpatient (REF) | payer MEDICARE, MEDICAID ==
[~2023-03-21] MED LIST changes: +ASPI81TAEC PO; +CLOP75TA2 PO; +EZET10TA21 PO; +META1POW PO; +TOVI4TAB PO
[2023-03-21 17:35] LABS: APPEARANCE, URINE CLOUDY (CLEAR); BACTERIA, URINE AUTO 2+ (NEGATIVE); BILIRUBIN, URINE AUTO NEGATIVE (NEGATIVE); BLOOD, URINE BLOOD 1+ (NEGATIVE); COLOR, URINE AMBER (YELLOW); GLUCOSE, URINE (UA) AUTO NEGATIVE (NEGATIVE); KETONE, URINE AUTO NEGATIVE (NEGATIVE); LEUKOCYTE ESTERASE, URINE AUTO 3+ (NEGATIVE); MUCUS, URINE SMALL (NEGATIVE); NITRITE, URINE AUTO NEGATIVE (NEGATIVE); PROTEIN, URINE AUTO 1+ mg/dL (NEGATIVE); RBC, URINE AUTO 10 /HPF (0-3); SPECIFIC GRAVITY URINE AUTO 1.012 (1.002-1.035); SQUAMOUS EPITHELIAL CELL UR AU 5 /HPF (0-6); TRANSITIONAL EPITHELIAL AUTO 2 /HPF; UROBILINOGEN, URINE AUTO 0.2 mg/dL (0.0-2.0); WBC, URINE AUTO TNTC /HPF (0-3)
== END ==
LOC: M SFHCADAM 16:30
PROVIDERS: ATTEND Physician Assistant
DX: R82.90 Unspecified abnormal findings in urine (principal)

== ENCOUNTER 2023-03-28 12:17 | Inpatient (IN) | payer MEDICARE, MEDICAID ==
[~2023-03-28] VITALS: Ht 149.9 cm; Wt 52.0 kg
[2023-03-28] MEDS ORDERED: HYOSCYAMINE SULFATE 0.125 MG SUBL TABLET PO PRN (12:20)
[2023-03-28] MEDS ORDERED: MORPHINE 10MG/0.5ML ORAL CONCENTRATE SOLUTION U/D SL PRN (12:20)
[2023-03-28] MEDS ORDERED: ONDANSETRON 4MG ORAL DISINTEGRATING TAB PO PRN (12:20)
[2023-03-28 13:00] VITALS: BP 151/94
[2023-03-28] MEDS: FLUoxetine 20MG CAP PO SCH (14:34)
[2023-03-28] MEDS: DIGOXIN 0.125 MG TAB PO SCH (14:34)
[2023-03-29 06:00] VITALS: BP 153/88
[2023-03-29] MEDS: FLUoxetine 20MG CAP PO SCH (08:54)
[2023-03-29] MEDS: NITROFURANTOIN (MACROBID) 100 MG CAP PO SCH (19:57)
[2023-03-29] MEDS: LORazepam 1 MG TAB PO PRN (20:03)
[2023-03-30] MEDS: FLUoxetine 20MG CAP PO SCH (09:21)
[2023-03-30] MEDS: NITROFURANTOIN (MACROBID) 100 MG CAP PO SCH ×2 (09:21→20:08)
[2023-03-30] MEDS: ACETAMINOPHEN TAB 650MG DOSE (2X325MG) PO PRN ×2 (09:23→15:38)
[2023-03-30] MEDS: DIGOXIN 0.125 MG TAB PO SCH (09:24)
[2023-03-30] MEDS: LORazepam 1 MG TAB PO PRN (20:09)
[2023-03-31] MEDS: DIGOXIN 0.125 MG TAB PO SCH (09:34)
[2023-03-31] MEDS: FLUoxetine 20MG CAP PO SCH (09:34)
[2023-03-31] MEDS: NITROFURANTOIN (MACROBID) 100 MG CAP PO SCH (09:34)
[2023-03-31] MEDS ORDERED: MORP1SOL SL (10:39)
[2023-03-31] MEDS ORDERED: ATIV1TAB7 PO (10:39)
[2023-03-31] MEDS ORDERED: NITR100C2 PO (10:39)
== END 2023-03-31 13:17 | disposition hospice, inpatient (51) | DRG 951 ==
LOC: M MSPAV 12:43
PROVIDERS: ADMIT Family Medicine; ATTEND Family Medicine
DX: Z51.5 Encounter for palliative care (principal); I69.351 Hemiplegia and hemiparesis following cerebral infarction affecting right dominant side; I50.9 Heart failure, unspecified; I11.0 Hypertensive heart disease with heart failure; K21.9 Gastro-esophageal reflux disease without esophagitis; E78.5 Hyperlipidemia, unspecified; M17.0 Bilateral primary osteoarthritis of knee; M19.041 Primary osteoarthritis, right hand; M19.042 Primary osteoarthritis, left hand; E55.9 Vitamin D deficiency, unspecified; M85.80 Other specified disorders of bone density and structure, unspecified site; N20.0 Calculus of kidney; N28.1 Cyst of kidney, acquired; I27.20 Pulmonary hypertension, unspecified; G93.89 Other specified disorders of brain; R53.1 Weakness; Z95.0 Presence of cardiac pacemaker; I25.10 Atherosclerotic heart disease of native coronary artery without angina pectoris; I25.2 Old myocardial infarction; I34.0 Nonrheumatic mitral (valve) insufficiency; I65.21 Occlusion and stenosis of right carotid artery; I48.0 Paroxysmal atrial fibrillation; F32.9 Major depressive disorder, single episode, unspecified; Z88.1 Allergy status to other antibiotic agents; Z88.8 Allergy status to other drugs, medicaments and biological substances; Z79.02 Long term (current) use of antithrombotics/antiplatelets; Z79.82 Long term (current) use of aspirin; Z79.899 Other long term (current) drug therapy; Z95.5 Presence of coronary angioplasty implant and graft